=== PATIENT | female | born 1935 | race Caucasian/White ===

== ENCOUNTER 2016-07-01 18:27 | Emergency (ER) | payer MEDICARE, OTHER ==
--- NOTE | 2016-07-01 19:13 | ED ---
SOB HPI - General Chief Complaint: Shortness of Breath Stated Complaint: chest pain Time Seen by Provider: 07/01/16 19:00 Source: patient, EMS, RN notes reviewed Mode of arrival: EMS Limitations: no limitations - History of Present Illness Initial Comments: This is a 80-year-old female history of psoriasis who is on methotrexate who states she's been having episodes of dyspnea over the last 3 weeks or so. It was believed to be secondary to the methotrexate. She did see Dr. Mi in addition to her own family doctor. She was placed on Advair which she does not believe helped very much she denies any fevers chills or sweats any cough or phlegm production she does get somewhat dyspneic with exertion or talking. She had an episode of chest pain earlier today that went away after she vomited. She points her left chest costochondral/costal sternal margin. She states she' s had similar pains in the past perhaps slightly different location however. Currently she feels back to normal essentially. MD Complaint: shortness of breath - Related Data Home Medications Medication Instructions Recorded Confirmed Cholecalciferol [Vitamin D3] 2,000 unit PO DAILY 09/24/15 07/01/16 Simvastatin [Zocor] 40 mg PO HS 09/24/15 07/01/16 Aspirin EC [Ecotrin Low Dose] 81 mg PO DAILY 03/11/16 07/01/16 Levothyroxine Sodium [Synthroid] 100 mcg PO DAILY 03/11/16 07/01/16 Warfarin [Coumadin] 2.5 mg PO DIRECTED 07/01/16 07/01/16 Warfarin [Coumadin] 5 mg PO DIRECTED 07/01/16 07/01/16 Previous Rx's Medication Instructions Recorded Hydrochlorothiazide [Hydrodiuril] 12.5 mg PO DAILY #30 cap 03/11/16 Hydrochlorothiazide [Hydrodiuril] 25 mg PO DAILY #14 tab 07/01/16 Allergies Allergy/AdvReac Type Severity Reaction Status Date / Time Penicillins Allergy Unknown Verified 07/01/16 18:54 Sulfa (Sulfonamide Allergy Unknown Verified 07/01/16 18:54 Antibiotics) adhesive tape AdvReac Peals Skin Verified 07/01/16 18:54 Review of Systems ROS Statement: Those systems with pertinent positive or pertinent negative responses have been documented in the HPI. ROS Other: All systems not noted in ROS Statement are negative. Past Medical History Past Medical History: Atrial Fibrillation, GERD/Reflux, Hyperlipidemia, Hypertension, Thyroid Disorder History of Any Multi-Drug Resistant Organisms: None Reported Past Surgical History: Section Additional Past Surgical History / Comment(s): jaw and pelvis surgery from accident many years ago Past Anesthesia/Blood Transfusion Reactions: Postoperative Nausea & Vomiting ( PONV) Past Psychological History: No Psychological Hx Reported Smoking Status: Never smoker Past Alcohol Use History: None Reported Past Drug Use History: None Reported - Past Family History Mother Family Medical History: CVA/TIA Additional Family Medical History / Comment(s): bowel disorder Father Family Medical History: Diabetes Mellitus, Myocardial Infarction ([place]) General Exam - General Exam Comments Initial Comments: This is a well-developed well-nourished awake alert oriented 3 female Limitations: no limitations General appearance: alert, in no apparent distress Head exam: Present: atraumatic, normocephalic, normal inspection Eye exam: Present: normal appearance, PERRL, EOMI. Absent: scleral icterus, conjunctival injection, periorbital swelling ENT exam: Present: normal exam, mucous membranes moist Neck exam: Present: normal inspection. Absent: tenderness, meningismus, lymphadenopathy Respiratory exam: Present: normal lung sounds bilaterally. Absent: respiratory distress, wheezes, rales, rhonchi, stridor Cardiovascular Exam: Present: regular rate, normal rhythm, normal heart sounds. Absent: systolic murmur, diastolic murmur, rubs, gallop, clicks GI/Abdominal exam: Present: soft, normal bowel sounds. Absent: distended, tenderness, guarding, rebound, rigid Extremities exam: Present: normal inspection, full ROM, normal capillary refill. Absent: tenderness, pedal edema, joint swelling, calf tenderness Back exam: Present: normal inspection Neurological exam: Present: alert, oriented X3, CN II-XII intact Psychiatric exam: Present: normal affect, normal mood Skin exam: Present: warm, dry, intact, normal color. Absent: rash Course Vital Signs 07/01/16 07/01/16 18:31 20:46 Temperature 97.0 F L 98.1 F Pulse Rate 65 78 Respiratory 20 18 Rate Blood Pressure 178/74 158/72 O2 Sat by Pulse 100 97 Oximetry Medical Decision Making - Medical Decision Making I did a long discussion with the patient family regarding the findings patient was offered a choice of admission or be discharged with increasing her diuretic. She chose not to be admitted she will be discharged with increasing hydrochlorothiazide to 25 mg a day is a follow-up with her doctor in 2 days and return when necessary she is return if is any problems. - Lab Data Result diagrams: 07/01/16 18:40 07/01/16 18:40 Lab Results 07/01/16 07/01/16 07/01/16 Range/Units 18:40 18:40 18:40 WBC 10.4 (3.8-10.6) k/uL RBC 4.11 (3.80-5.40) m/uL Hgb 13.4 (11.4-16.0) gm/dL Hct 40.7 (34.0-46.0) % MCV 99.0 (80.0-100.0) fL MCH 32.7 (25.0-35.0) pg MCHC 33.1 (31.0-37.0) g/dL RDW 16.2 H (11.5-15.5) % Plt Count 234 (150-450) k/uL Neutrophils % 75 % Lymphocytes % 15 % Monocytes % 6 % Eosinophils % 1 % Basophils % 1 % Neutrophils # 7.8 H (1.3-7.7) k/uL Lymphocytes # 1.6 (1.0-4.8) k/uL Monocytes # 0.7 (0-1.0) k/uL Eosinophils # 0.1 (0-0.7) k/uL Basophils # 0.1 (0-0.2) k/uL Anisocytosis Slight Macrocytosis Slight PT (9.0-12.0) sec INR (<1.1) APTT (22.0-30.0) sec D-Dimer (<0.60) mg/L FEU Sodium 144 (137-145) mmol/L Potassium 4.2 (3.5-5.1) mmol/L Chloride 106 (98-107) mmol/L Carbon Dioxide 24 (22-30) mmol/L Anion Gap 14 mmol/L BUN 14 (7-17) mg/dL Creatinine 0.83 (0.52-1.04) mg/dL Est GFR (MDRD) Af Amer >60 (>60 ml/min/1.73 sqM) Est GFR (MDRD) Non-Af >60 (>60 ml/min/1.73 sqM) Glucose 87 (74-99) mg/dL Calcium 9.9 (8.4-10.2) mg/dL Magnesium 2.2 (1.6-2.3) mg/dL Total Bilirubin 0.7 (0.2-1.3) mg/dL AST 52 H (14-36) U/L ALT 38 (9-52) U/L Alkaline Phosphatase 87 (38-126) U/L Total Creatine Kinase 43 (30-135) U/L CK-MB (CK-2) 1.3 (0.0-2.4) ng/mL CK-MB (CK-2) Rel Index 3.0 Troponin I <0.012 (0.000-0.034) ng/mL NT-Pro-B Natriuret Pep pg/mL Total Protein 7.9 (6.3-8.2) g/dL Albumin 4.3 (3.5-5.0) g/dL 07/01/16 07/01/16 Range/Units 18:40 18:40 WBC (3.8-10.6) k/uL RBC (3.80-5.40) m/uL Hgb (11.4-16.0) gm/dL Hct (34.0-46.0) % MCV (80.0-100.0) fL MCH (25.0-35.0) pg MCHC (31.0-37.0) g/dL RDW (11.5-15.5) % Plt Count (150-450) k/uL Neutrophils % % Lymphocytes % % Monocytes % % Eosinophils % % Basophils % % Neutrophils # (1.3-7.7) k/uL Lymphocytes # (1.0-4.8) k/uL Monocytes # (0-1.0) k/uL Eosinophils # (0-0.7) k/uL Basophils # (0-0.2) k/uL Anisocytosis Macrocytosis PT 21.0 H (9.0-12.0) sec INR 2.2 (<1.1) APTT 27.5 (22.0-30.0) sec D-Dimer 0.29 (<0.60) mg/L FEU Sodium (137-145) mmol/L Potassium (3.5-5.1) mmol/L Chloride (98-107) mmol/L Carbon Dioxide (22-30) mmol/L Anion Gap mmol/L BUN (7-17) mg/dL Creatinine (0.52-1.04) mg/dL Est GFR (MDRD) Af Amer (>60 ml/min/1.73 sqM) Est GFR (MDRD) Non-Af (>60 ml/min/1.73 sqM) Glucose (74-99) mg/dL Calcium (8.4-10.2) mg/dL Magnesium (1.6-2.3) mg/dL Total Bilirubin (0.2-1.3) mg/dL AST (14-36) U/L ALT (9-52) U/L Alkaline Phosphatase (38-126) U/L Total Creatine Kinase (30-135) U/L CK-MB (CK-2) (0.0-2.4) ng/mL CK-MB (CK-2) Rel Index Troponin I (0.000-0.034) ng/mL NT-Pro-B Natriuret Pep 2240 pg/mL Total Protein (6.3-8.2) g/dL Albumin (3.5-5.0) g/dL - EKG Data -: EKG Interpreted by Me EKG shows normal: sinus rhythm (Rate was 64 LA interval 172 QRS duration 96 daily since QTC 458/472 evidence of incomplete right bundle-branch block no acute ST-T wave elevation or depressions) - Radiology Data Radiology results: report reviewed (I did review the imaging and report no acute findings.), image reviewed Disposition Clinical Impression: Congestive heart failure Disposition: HOME SELF-CARE Condition: Good Instructions: Heart Failure (ED) Prescriptions: Hydrochlorothiazide [Hydrodiuril] 25 mg PO DAILY #14 tab
[2016-07-01 19:29] LABS: Anisocytosis Slight; Basophils # (A) 0.1 k/uL (0-0.2); Basophils % (A) 1 %; CH 32.8; CHCM 33.4; Eosinophils # (A) 0.1 k/uL (0-0.7); Eosinophils % (A) 1 %; HCT 40.7 % (34.0-46.0); HDW 2.75; HGB 13.4 gm/dL (11.4-16.0); Luc # (Auto) 0.17; Luc % (Auto) 2; Lymphocytes # (A) 1.6 k/uL (1.0-4.8); Lymphocytes % (A) 15 %; MCH 32.7 pg (25.0-35.0); MCHC 33.1 g/dL (31.0-37.0); Macrocytosis Slight; Mean Platelet Volume 8.1; Monocytes # (A) 0.7 k/uL (0-1.0); Monocytes % (A) 6 %; Neutrophils # (A) 7.8 k/uL (1.3-7.7); Neutrophils % (A) 75 %; RBC 4.11 m/uL (3.80-5.40); RDW 16.2 % (11.5-15.5); WBC 10.4 k/uL (3.8-10.6); WBC (Perox) 10.57
[2016-07-01 19:44] LABS: ALT 38 U/L (9-52); AST 52 U/L (14-36); Alkaline Phosphatase 87 U/L (38-126); Anion Gap 14 mmol/L; Blood Urea Nitrogen 14 mg/dL (7-17); Calcium 9.9 mg/dL (8.4-10.2); Carbon Dioxide 24 mmol/L (22-30); Chloride 106 mmol/L (98-107); Glucose 87 mg/dL (74-99); Magnesium 2.2 mg/dL (1.6-2.3); Non-African American GFR(MDRD) >60 (>60 ml/min/1.73 sqM); Potassium 4.2 mmol/L (3.5-5.1); Sodium 144 mmol/L (137-145); Total Bilirubin 0.7 mg/dL (0.2-1.3); Total Protein 7.9 g/dL (6.3-8.2)
[2016-07-01 19:52] LABS: Creatine Kinase 43 U/L (30-135)
[2016-07-01 20:02] LABS: INR 2.2 (<1.1); Partial Thromboplastin Time 27.5 sec (22.0-30.0)
[2016-07-01 20:04] LABS: Creatine Kinase MB 1.3 ng/mL (0.0-2.4); Troponin I <0.012 ng/mL (0.000-0.034)
[2016-07-01 20:47] VITALS: PULSE 78; RESP 18; TEMP 98.1
--- NOTE | 2016-07-01 20:49 | XR ---
EXAMINATION TYPE: XR chest 2V DATE OF EXAM: 07/01/2016 8:26 PM COMPARISON: 05/10/2016 HISTORY: Chest pain TECHNIQUE: Frontal and lateral views of the chest are obtained. FINDINGS: Heart and mediastinum are normal. Lungs are clear. Diaphragm is normal. There are chest le ads. Bony thorax is intact. IMPRESSION: Normal chest. No change.
[2016-07-01 21:22] VITALS: BP 178/78
== END 2016-07-01 21:20 | disposition home or self-care (01) ==
LOC: EC 18:27
DX: I50.9 Heart failure, unspecified (principal); L40.9 Psoriasis, unspecified; E07.9 Disorder of thyroid, unspecified; I48.91 Unspecified atrial fibrillation; E78.5 Hyperlipidemia, unspecified; Z79.82 Long term (current) use of aspirin; Z79.899 Other long term (current) drug therapy; Z79.01 Long term (current) use of anticoagulants; Z88.2 Allergy status to sulfonamides; Z88.0 Allergy status to penicillin
CPT/HCPCS: 36415; 71020; 80053; 82550; 82553; 83735; 83880; 84484; 85025; 85379; 85610; 85730; 93005; 99285

== ENCOUNTER 2016-07-12 04:11 | Inpatient (IN) | payer MEDICARE, OTHER ==
[2016-07-12] MEDS ORDERED: predniSONE 20 MG TAB PO STA (04:33)
[2016-07-12] MEDS ORDERED: IPRATROPIUM-ALBUTEROL 3 ML NEB INHALATION STA (04:33)
[2016-07-12 04:43] LABS: Basophils # (A) 0.1 k/uL (0-0.2); Basophils % (A) 1 %; CH 33.6; CHCM 35.7; Eosinophils # (A) 0.2 k/uL (0-0.7); Eosinophils % (A) 3 %; HCT 41.2 % (34.0-46.0); HDW 2.65; HGB 14.1 gm/dL (11.4-16.0); Luc % (Auto) 2; Lymphocytes # (A) 2.7 k/uL (1.0-4.8); Lymphocytes % (A) 31 %; MCH 32.5 pg (25.0-35.0); MCHC 34.4 g/dL (31.0-37.0); MCV 94.6 fL (80.0-100.0); Mean Platelet Volume 8.4; Monocytes # (A) 0.6 k/uL (0-1.0); Monocytes % (A) 7 %; Neutrophils # (A) 4.9 k/uL (1.3-7.7); Neutrophils % (A) 56 %; RBC 4.35 m/uL (3.80-5.40); RDW 15.3 % (11.5-15.5); WBC 8.7 k/uL (3.8-10.6); WBC (Perox) 8.82
[2016-07-12 04:56] LABS: Calcium 10.3 mg/dL (8.4-10.2); Magnesium 1.9 mg/dL (1.6-2.3); Potassium 3.2 mmol/L (3.5-5.1); Total Protein 7.8 g/dL (6.3-8.2)
[2016-07-12 04:58] LABS: INR 2.3 (<1.1); Partial Thromboplastin Time 28.2 sec (22.0-30.0); Prothrombin Time 22.5 sec (9.0-12.0)
--- NOTE | 2016-07-12 05:00 | XR ---
EXAMINATION TYPE: XR chest 2V DATE OF EXAM: 07/12/2016 4:45 AM COMPARISON: 07/01/2016 HISTORY: Short of breath TECHNIQUE: Frontal and lateral views of the chest are obtained. FINDINGS: Heart and mediastinum are normal. Lungs are clear. Diaphragm is normal. There are chest le ads. Bony thorax is intact. IMPRESSION: No active cardiopulmonary disease. Normal heart. No change.
[2016-07-12] MEDS ORDERED: POTASSIUM CHLORIDE ER 20 MEQ TAB.ER PO STA (05:43)
--- NOTE | 2016-07-12 06:26 | ED ---
SOB HPI - General Chief Complaint: Shortness of Breath Stated Complaint: BAILEY Time Seen by Provider: 07/12/16 04:20 Source: patient, EMS, RN notes reviewed Mode of arrival: EMS - History of Present Illness Initial Comments: This patient is a 81-year-old woman who presents with history of COPD and CHF, complaining of about 2 days of worsening dyspnea. The patient states she has been having a lot of anxiety and wonders if it could be related to this. She does report a nonproductive cough. Patient denies chest pain, palpitations, leg pain or swelling, change in urination, bloody or dark tarry stools. MD Complaint: shortness of breath Onset/Timin -: days(s) Severity: moderate Consistency: constant Improves With: nothing Worsens With: nothing Known History Of: COPD, congestive heart failure Associated Symptoms: denies other symptoms - Related Data Home Medications Medication Instructions Recorded Confirmed Cholecalciferol [Vitamin D3] 2,000 unit PO DAILY 09/24/15 07/12/16 Aspirin EC [Ecotrin Low Dose] 81 mg PO DAILY 03/11/16 07/12/16 Levothyroxine Sodium [Synthroid] 100 mcg PO DAILY 03/11/16 07/12/16 Spironolactone [Aldactone] 25 mg PO DAILY 07/12/16 07/12/16 Warfarin Sodium [Coumadin] 2.5 mg PO SUTUTH 07/12/16 07/12/16 Warfarin [Coumadin] 5 mg PO MOWEFRSA 07/12/16 07/12/16 Previous Rx's Medication Instructions Recorded Hydrochlorothiazide [Hydrodiuril] 25 mg PO DAILY #14 tab 07/01/16 Azithromycin [Zithromax Z-pack] 0 mg PO DIRECTED #6 tab 07/12/16 Metoprolol Tartrate [Lopressor] 25 mg PO BID #30 tablet 07/12/16 methylPREDNISolone Dose Pack 4 mg PO DIRECTED #21 package 07/12/16 [Medrol Dose Pack] Allergies Allergy/AdvReac Type Severity Reaction Status Date / Time Penicillins Allergy Unknown Verified 07/12/16 07:56 Sulfa (Sulfonamide Allergy Unknown Verified 07/12/16 07:56 Antibiotics) adhesive tape AdvReac Peals Skin Verified 07/12/16 07:56 Review of Systems ROS Statement: Those systems with pertinent positive or pertinent negative responses have been documented in the HPI. ROS Other: All systems not noted in ROS Statement are negative. Constitutional: Denies: fever, chills, weakness Respiratory: Reports: cough, dyspnea, wheezes. Denies: hemoptysis Cardiovascular: Denies: chest pain, palpitations, dyspnea on exertion, orthopnea , edema, syncope Gastrointestinal: Denies: abdominal pain, nausea, vomiting, diarrhea Musculoskeletal: Denies: back pain Skin: Denies: rash Neurological: Denies: headache, weakness, numbness Past Medical History Past Medical History: Atrial Fibrillation, GERD/Reflux, Hyperlipidemia, Hypertension, Thyroid Disorder History of Any Multi-Drug Resistant Organisms: None Reported Past Surgical History: Section Additional Past Surgical History / Comment(s): jaw and pelvis surgery from accident many years ago Past Anesthesia/Blood Transfusion Reactions: Postoperative Nausea & Vomiting ( PONV) Past Psychological History: No Psychological Hx Reported Smoking Status: Never smoker Past Alcohol Use History: None Reported Past Drug Use History: None Reported - Past Family History Mother Family Medical History: CVA/TIA Additional Family Medical History / Comment(s): bowel disorder Father Family Medical History: Diabetes Mellitus, Myocardial Infarction ([place]) General Exam General appearance: alert, anxious, in distress (Patient appears in mild respiratory distress with mild tachypnea) Head exam: Present: atraumatic, normocephalic Eye exam: Present: normal appearance. Absent: scleral icterus, conjunctival injection ENT exam: Present: mucous membranes dry Neck exam: Present: normal inspection Respiratory exam: Present: respiratory distress (Mild tachypnea), wheezes, decreased breath sounds. Absent: rales, rhonchi, stridor, accessory muscle use Cardiovascular Exam: Present: normal rhythm, tachycardia (Rate approximately 108 bpm), normal heart sounds. Absent: systolic murmur, diastolic murmur, rubs , gallop GI/Abdominal exam: Present: soft. Absent: distended, tenderness, guarding, rebound, mass Extremities exam: Present: normal inspection, normal capillary refill. Absent: pedal edema, calf tenderness Back exam: Present: normal inspection. Absent: CVA tenderness (R), CVA tenderness (L) Neurological exam: Present: alert Psychiatric exam: Present: anxious Skin exam: Present: warm, dry, intact, normal color. Absent: rash, cyanosis, diaphoretic, erythema, petechiae, pallor, mottled Course Vital Signs 07/12/16 07/12/16 07/12/16 04:27 05:01 05:06 Temperature 97.1 F L Pulse Rate 110 H 94 105 H Respiratory 18 Rate Blood Pressure 169/79 O2 Sat by Pulse 97 Oximetry 07/12/16 07/12/16 07/12/16 08:19 09:00 10:00 Temperature 97 F L Pulse Rate 102 H 92 90 Respiratory 20 18 18 Rate Blood Pressure 175/63 167/65 175/63 O2 Sat by Pulse 98 95 95 Oximetry 07/12/16 12:58 Temperature 97.6 F Pulse Rate 105 H Respiratory 16 Rate Blood Pressure 151/76 O2 Sat by Pulse 98 Oximetry Medical Decision Making - Medical Decision Making Patient 81-year-old woman in with dyspnea, she does have some exacerbation of her COPD. She was not having adequate relief with medication and therefore case discussed with her physician Dr. Emile Bansal who agreed to admit her with consultation to Dr. Mi. She was scheduled to have outpatient CT and this was ordered here and she'll be admitted. - Lab Data Result diagrams: 07/12/16 04:30 07/12/16 04:30 Lab Results 07/12/16 07/12/16 07/12/16 Range/Units 04:30 04:30 04:30 WBC 8.7 (3.8-10.6) k/uL RBC 4.35 (3.80-5.40) m/uL Hgb 14.1 (11.4-16.0) gm/dL Hct 41.2 (34.0-46.0) % MCV 94.6 (80.0-100.0) fL MCH 32.5 (25.0-35.0) pg MCHC 34.4 (31.0-37.0) g/dL RDW 15.3 (11.5-15.5) % Plt Count 240 (150-450) k/uL Neutrophils % 56 % Lymphocytes % 31 % Monocytes % 7 % Eosinophils % 3 % Basophils % 1 % Neutrophils # 4.9 (1.3-7.7) k/uL Lymphocytes # 2.7 (1.0-4.8) k/uL Monocytes # 0.6 (0-1.0) k/uL Eosinophils # 0.2 (0-0.7) k/uL Basophils # 0.1 (0-0.2) k/uL PT 22.5 H (9.0-12.0) sec INR 2.3 (<1.1) APTT 28.2 (22.0-30.0) sec D-Dimer 0.27 (<0.60) mg/L FEU Sodium 139 (137-145) mmol/L Potassium 3.2 L (3.5-5.1) mmol/L Chloride 104 (98-107) mmol/L Carbon Dioxide 18 L (22-30) mmol/L Anion Gap 17 mmol/L BUN 28 H (7-17) mg/dL Creatinine 1.30 H (0.52-1.04) mg/dL Est GFR (MDRD) Af Amer 48 (>60 ml/min/1.73 sqM) Est GFR (MDRD) Non-Af 40 (>60 ml/min/1.73 sqM) Glucose 107 H (74-99) mg/dL Calcium 10.3 H (8.4-10.2) mg/dL Magnesium 1.9 (1.6-2.3) mg/dL Total Bilirubin 1.0 (0.2-1.3) mg/dL AST 50 H (14-36) U/L ALT 36 (9-52) U/L Alkaline Phosphatase 86 (38-126) U/L Troponin I (0.000-0.034) ng/mL NT-Pro-B Natriuret Pep pg/mL Total Protein 7.8 (6.3-8.2) g/dL Albumin 4.2 (3.5-5.0) g/dL 07/12/16 07/12/16 Range/Units 04:30 04:30 WBC (3.8-10.6) k/uL RBC (3.80-5.40) m/uL Hgb (11.4-16.0) gm/dL Hct (34.0-46.0) % MCV (80.0-100.0) fL MCH (25.0-35.0) pg MCHC (31.0-37.0) g/dL RDW (11.5-15.5) % Plt Count (150-450) k/uL Neutrophils % % Lymphocytes % % Monocytes % % Eosinophils % % Basophils % % Neutrophils # (1.3-7.7) k/uL Lymphocytes # (1.0-4.8) k/uL Monocytes # (0-1.0) k/uL Eosinophils # (0-0.7) k/uL Basophils # (0-0.2) k/uL PT (9.0-12.0) sec INR (<1.1) APTT (22.0-30.0) sec D-Dimer (<0.60) mg/L FEU Sodium (137-145) mmol/L Potassium (3.5-5.1) mmol/L Chloride (98-107) mmol/L Carbon Dioxide (22-30) mmol/L Anion Gap mmol/L BUN (7-17) mg/dL Creatinine (0.52-1.04) mg/dL Est GFR (MDRD) Af Amer (>60 ml/min/1.73 sqM) Est GFR (MDRD) Non-Af (>60 ml/min/1.73 sqM) Glucose (74-99) mg/dL Calcium (8.4-10.2) mg/dL Magnesium (1.6-2.3) mg/dL Total Bilirubin (0.2-1.3) mg/dL AST (14-36) U/L ALT (9-52) U/L Alkaline Phosphatase (38-126) U/L Troponin I <0.012 (0.000-0.034) ng/mL NT-Pro-B Natriuret Pep 545 pg/mL Total Protein (6.3-8.2) g/dL Albumin (3.5-5.0) g/dL - EKG Data -: EKG Interpreted by [facility] EKG shows normal: sinus rhythm, axis (Normal), intervals (Prolonged QT), QRS complexes (Incomplete right bundle branch block) Interpretation: nonspecific ST-T wave changes, other (EKG shows sinus rhythm with premature supraventricular complexes. Rate is approximately 80 bpm. There is prolonged QT interval.) Disposition Clinical Impression: Acute exacerbation of chronic obstructive airways disease Disposition: ADMITTED IP TO THIS HOSP
--- NOTE | 2016-07-12 06:57 | CT ---
EXAMINATION TYPE: CT chest wo con DATE OF EXAM: 07/12/2016 6:43 AM COMPARISON: NONE HISTORY: SOB CT DLP: 484 mGycm Automated exposure control for dose reduction was used. FINDINGS: The lungs are clear of consolidation. There is no evidence of a pulmonary mass. There is no pleural e ffusion. Heart size is normal. There are no hilar masses. There is minimal atheromatous change in the thoracic aorta. There is no evidence of aortic aneurysm. There is no mediastinal adenopathy. The bon y thorax is intact. There is a mild thoracic levoscoliosis. IMPRESSION: NO ACTIVE CARDIOPULMONARY DISEASE. NO EVIDENCE OF BRONCHOPNEUMONIA.
[2016-07-12] MEDS ORDERED: predniSONE 20 MG TAB PO SCH (09:00)
[2016-07-12] MEDS ORDERED: HEPARIN SODIUM,PORCINE 5,000 UNIT/ML 1 ML VIAL SQ SCH (09:00)
[2016-07-12] MEDS ORDERED: IPRATROPIUM-ALBUTEROL 3 ML NEB INHALATION SCH (12:00)
--- NOTE | 2016-07-12 12:25 | P.HPIM ---
History of Present Illness 81-year-old female states that at 3:00 this morning she developed some shortness of breath. She called EMS for transport to the emergency room. Patient was evaluated and admitted. States she is some improvement. Patient is a patient of Dr. Mi awaiting his consultation Review of Systems Cardiovascular: Reports dyspnea on exertion Integumentary: Reports rash Past Medical History Past Medical History: Atrial Fibrillation, GERD/Reflux, Hyperlipidemia, Hypertension, Thyroid Disorder History of Any Multi-Drug Resistant Organisms: None Reported Past Surgical History: Section Additional Past Surgical History / Comment(s): jaw and pelvis surgery from accident many years ago Past Anesthesia/Blood Transfusion Reactions: Postoperative Nausea & Vomiting ( PONV) Past Psychological History: No Psychological Hx Reported Smoking Status: Never smoker Past Alcohol Use History: None Reported Past Drug Use History: None Reported - Past Family History Mother Family Medical History: CVA/TIA Additional Family Medical History / Comment(s): bowel disorder Father Family Medical History: Diabetes Mellitus, Myocardial Infarction ([place]) Medications and Allergies Home Medications Medication Instructions Recorded Confirmed Type Cholecalciferol [Vitamin D3] 2,000 unit PO DAILY 09/24/15 07/12/16 History Aspirin EC [Ecotrin Low Dose] 81 mg PO DAILY 03/11/16 07/12/16 History Levothyroxine Sodium [Synthroid] 100 mcg PO DAILY 03/11/16 07/12/16 History Spironolactone [Aldactone] 25 mg PO DAILY 07/12/16 07/12/16 History Warfarin Sodium [Coumadin] 2.5 mg PO SUTUTH 07/12/16 07/12/16 History Warfarin [Coumadin] 5 mg PO MOWEFRSA 07/12/16 07/12/16 History Allergies Allergy/AdvReac Type Severity Reaction Status Date / Time Penicillins Allergy Unknown Verified 07/12/16 07:56 Sulfa (Sulfonamide Allergy Unknown Verified 07/12/16 07:56 Antibiotics) adhesive tape AdvReac Peals Skin Verified 07/12/16 07:56 Physical Exam Vitals: Vital Signs Temp Pulse Resp BP Pulse Ox 07/12/16 10:00 90 18 175/63 95 07/12/16 09:00 92 18 167/65 95 07/12/16 08:19 97 F L 102 H 20 175/63 98 - Constitutional General appearance: average body habitus, mild distress - EENT Eyes: PERRLA Ears: bilateral: normal - Neck Neck: normal ROM - Respiratory Respiratory: bilateral: diminished - Cardiovascular Rhythm: irregularly irregular - Gastrointestinal General gastrointestinal: soft - Integumentary Psoriasis rash generalized - Neurologic Neurologic: CNII-XII intact - Musculoskeletal Musculoskeletal: generalized weakness - Psychiatric Psychiatric: appropriate affect, intact judgment & insight Results CBC & Chem 7: 07/12/16 04:30 07/12/16 04:30 Chest x-ray: report reviewed CT scan - chest: report reviewed Assessment and Plan Plan: Assessment COPD exacerbation Hypertension Atrial fibrillation GERD Hyperlipidemia Hypothyroidism Hypokalemia psoriasis Plan Consultation with Dr. Mi regarding COPD
[2016-07-12 13:00] VITALS: BP 151/76; PULSE 105; RESP 16; TEMP 97.6
--- NOTE | 2016-07-12 13:12 | P.DS ---
Providers Date of admission: 07/12/16 06:46 Attending physician: Emile Gregory Consults: 81-year-old female states she developed some shortness of breath at 3 AM at home called EMS and was transferred to the emergency room. Was evaluated and settled for admission. Patient was evaluated by Dr. Keys. He stated that she appeared stable and could be discharge home. He wrote a prescription for zpak Medrol Dosepak and l Lopressor 25 mg have to b.i.d. Patient with family patient wishing to be discharged and family agreement Assessment COPD exacerbation hypertension atrial fibrillation GERD hyperlipidemia hypothyroidism psoriasis Plan discharge home Primary care physician: Emile Gregory Plan - Discharge Summary New Discharge Prescriptions: Azithromycin [Zithromax Z-pack] 0 mg PO DIRECTED #6 tab Metoprolol Tartrate [Lopressor] 25 mg PO BID #30 tablet methylPREDNISolone Dose Pack [Medrol Dose Pack] 4 mg PO DIRECTED #21 package Discharge Medication List Cholecalciferol [Vitamin D3] 2,000 unit PO DAILY 09/24/15 [History] Aspirin EC [Ecotrin Low Dose] 81 mg PO DAILY 03/11/16 [History] Levothyroxine Sodium [Synthroid] 100 mcg PO DAILY 03/11/16 [History] Hydrochlorothiazide [Hydrodiuril] 25 mg PO DAILY #14 tab 07/01/16 [Rx] Azithromycin [Zithromax Z-pack] 0 mg PO DIRECTED #6 tab 07/12/16 [Rx] Metoprolol Tartrate [Lopressor] 25 mg PO BID #30 tablet 07/12/16 [Rx] Spironolactone [Aldactone] 25 mg PO DAILY 07/12/16 [History] Warfarin Sodium [Coumadin] 2.5 mg PO SUTUTH 07/12/16 [History] Warfarin [Coumadin] 5 mg PO MOWEFRSA 07/12/16 [History] methylPREDNISolone Dose Pack [Medrol Dose Pack] 4 mg PO DIRECTED #21 package 07/12/16 [Rx] Follow up Appointment(s)/Referral(s): Emile Gregory MD [Primary Care Provider] - 1 Week Sheila Mi MD [STAFF PHYSICIAN] - 07/18/16 Patient Instructions/Handouts: COPD (Chronic Obstructive Pulmonary Disease) (ED )
--- NOTE | 2016-07-12 13:34 | P.CNPUL ---
History of Present Illness Consult date: 07/12/16 Requesting physician: Emile Gregory Reason for consult: dyspnea Chief complaint: Shortness of breath, anxiety History of present illness: This is a very pleasant 81-year-old female patient who follows with Dr. Emile Gregory is her primary care physician. She has a history of atrial fibrillation, gastroesophageal reflux disease, hyperlipidemia, hypertension, hypothyroidism. She is a lifelong nonsmoker and no previous pulmonary disease. The patient had been experiencing increasing shortness of breath and had been treated on methotrexate in the past. She was referred to Dr. Mi approximately a week ago as a new patient. Based on her worsening shortness of breath there is some concern regarding possible methotrexate lung and she was scheduled to have a computed tomography scan later this week. Yesterday however she developed increasing shortness of breath. No cough or congestion. No fever chills or night sweats. She felt somewhat anxious and came to the emergency room. She is seen today in consultation in the emergency room. Currently she is awake and alert in no acute distress. Her family is at the bedside. She denies any shortness of breath today no cough or congestion no fever chills or night sweats. She is in atrial fibrillation with varying ventricular response. Her chest x-ray revealed no acute pulmonary process. Her CT of the chest did not show any evidence of fibrosis or any other abnormalities. She is maintaining O2 saturations in the upper 90s on room air. No fever. No leukocytosis. She is anxious to go home. She states she feels back to her baseline. Review of Systems 14 point review of system was conducted. All negative other than as mentioned in HPI. Past Medical History Past Medical History: Atrial Fibrillation, GERD/Reflux, Hyperlipidemia, Hypertension, Thyroid Disorder History of Any Multi-Drug Resistant Organisms: None Reported Past Surgical History: Section Additional Past Surgical History / Comment(s): jaw and pelvis surgery from accident many years ago Past Anesthesia/Blood Transfusion Reactions: Postoperative Nausea & Vomiting ( PONV) Past Psychological History: No Psychological Hx Reported Smoking Status: Never smoker Past Alcohol Use History: None Reported Past Drug Use History: None Reported - Past Family History Mother Family Medical History: CVA/TIA Additional Family Medical History / Comment(s): bowel disorder Father Family Medical History: Diabetes Mellitus, Myocardial Infarction ([place]) Medications and Allergies Home Medications Medication Instructions Recorded Confirmed Type Cholecalciferol [Vitamin D3] 2,000 unit PO DAILY 09/24/15 07/12/16 History Aspirin EC [Ecotrin Low Dose] 81 mg PO DAILY 03/11/16 07/12/16 History Levothyroxine Sodium [Synthroid] 100 mcg PO DAILY 03/11/16 07/12/16 History Spironolactone [Aldactone] 25 mg PO DAILY 07/12/16 07/12/16 History Warfarin Sodium [Coumadin] 2.5 mg PO SUTUTH 07/12/16 07/12/16 History Warfarin [Coumadin] 5 mg PO MOWEFRSA 07/12/16 07/12/16 History Allergies Allergy/AdvReac Type Severity Reaction Status Date / Time Penicillins Allergy Unknown Verified 07/12/16 07:56 Sulfa (Sulfonamide Allergy Unknown Verified 07/12/16 07:56 Antibiotics) adhesive tape AdvReac Peals Skin Verified 07/12/16 07:56 Physical Exam Vitals: Vital Signs Temp Pulse Resp BP Pulse Ox 07/12/16 12:58 97.6 F 105 H 16 151/76 98 07/12/16 10:00 90 18 175/63 95 07/12/16 09:00 92 18 167/65 95 07/12/16 08:19 97 F L 102 H 20 175/63 98 GENERAL EXAM: Alert, active, comfortable in no apparent distress. HEAD: Normocephalic. EYES: Normal reaction of pupils, equal size. NOSE: Clear with pink turbinates. THROAT: No erythema or exudates. NECK: No masses, no JVD. CHEST: No chest wall deformity. LUNGS: Equal air entry with no crackles, wheeze, rhonchi or dullness. CVS: S1 and S2 normal with no audible mumurs, regular rhythm. ABDOMEN: No hepatosplenomegaly, normal bowel sounds, no guarding or rigidity. SPINE: No scoliosis or deformity SKIN: No rashes CENTRAL NERVOUS SYSTEM: No focal deficits, tone is normal in all 4 extremities. Extremities: There is no peripheral edema. No clubbing, no cyanosis. Peripheral pulses are intact. Results - Laboratory Findings CBC and BMP: 07/12/16 04:30 07/12/16 04:30 PT/INR, D-dimer PT 22.5 sec (9.0-12.0) H 07/12/16 04:30 INR 2.3 (<1.1) 07/12/16 04:30 D-Dimer 0.27 mg/L FEU (<0.60) 07/12/16 04:30 - Diagnostic Findings Chest x-ray: image reviewed CT scan - chest: image reviewed Assessment and Plan Plan: Impression: #1 Mild acute exacerbation of chronic obstructive pulmonary disease. #2 Atrial fibrillation with varying ventricular response. Anticoagulated with warfarin. #3 Gastroesophageal reflux disease. #4 Hyperlipidemia. #5 Hypertension. #6 Hypothyroidism. Plan: The patient was seen and evaluated by Dr. Mi. Her chest x-ray and CAT scans were reviewed. There is no evidence of any underlying fibrotic changes or ILD secondary to concerns regarding methotrexate use and increasing shortness of breath. She is cleared for discharge from the pulmonary standpoint. She is given a Z-Johann and a Medrol Dosepak along with Lopressor 25 mg half a tablet daily. She'll keep her scheduled appointment with Dr. Mi next week. She and her daughter both verbalized understanding and are in agreement. They will call our office sooner with any recurrence of symptoms or any other questions or concerns.
[2016-07-12] MEDS ORDERED: WARFARIN 5 MG TAB PO SCH (18:00)
[2016-07-13] MEDS ORDERED: CHOLECALCIFEROL 1,000 UNIT TAB PO SCH (09:00)
[2016-07-13] MEDS ORDERED: SPIRONOLACTONE 25 MG TAB PO SCH (09:00)
[2016-07-13] MEDS ORDERED: NON-FORMULARY DRUG (Aspirin Ec 81 MG) PO SCH (09:00)
[2016-07-13] MEDS ORDERED: HYDROCHLOROTHIAZIDE 25 MG TAB PO SCH (09:00)
[2016-07-13] MEDS ORDERED: LEVOTHYROXINE 100 MCG TAB PO SCH (09:00)
[2016-07-13] MEDS ORDERED: WARFARIN 5 MG TAB PO SCH (18:00)
== END 2016-07-12 13:17 | disposition home or self-care (01) | DRG 192 ==
LOC: EC 04:11 → 5MS5E 06:46
PROVIDERS: ADMIT Family Medicine; ATTEND Family Medicine
DX: J44.1 Chronic obstructive pulmonary disease with (acute) exacerbation (principal); I48.91 Unspecified atrial fibrillation; I10 Essential (primary) hypertension; E03.9 Hypothyroidism, unspecified; E78.5 Hyperlipidemia, unspecified; E87.6 Hypokalemia; F41.9 Anxiety disorder, unspecified; K21.9 Gastro-esophageal reflux disease without esophagitis; L40.9 Psoriasis, unspecified; Z79.899 Other long term (current) drug therapy; Z79.01 Long term (current) use of anticoagulants; Z79.82 Long term (current) use of aspirin; Z88.0 Allergy status to penicillin; Z88.2 Allergy status to sulfonamides; Z82.49 Family history of ischemic heart disease and other diseases of the circulatory system
CPT/HCPCS: 36415; 71020; 71250; 80053; 83735; 83880; 84484; 85025; 85379; 85610; 85730; 93005; 94640; 96372; 99285

== ENCOUNTER → 2016-08-15 | Outpatient (CLI) | payer MEDICARE, OTHER ==
[2016-08-15 16:06] LABS: Anion Gap 14 mmol/L; Blood Urea Nitrogen 14 mg/dL (7-17); Carbon Dioxide 28 mmol/L (22-30); Chloride 100 mmol/L (98-107); Non-African American GFR(MDRD) 60 (>60 ml/min/1.73 sqM); Sodium 142 mmol/L (137-145)
[2016-08-15 16:07] LABS: CH 32.6; CHCM 33.2; HCT 39.6 % (34.0-46.0); HDW 2.92; HGB 12.7 gm/dL (11.4-16.0); MCH 31.7 pg (25.0-35.0); MCHC 32.1 g/dL (31.0-37.0); MCV 98.9 fL (80.0-100.0); Mean Platelet Volume 7.2; RDW 14.6 % (11.5-15.5); WBC 8.3 k/uL (3.8-10.6)
== END ==
LOC: LABPAT 15:22
PROVIDERS: ATTEND Internal Medicine Interventional Cardiology
DX: I48.1 Persistent atrial fibrillation (principal)
CPT/HCPCS: 36415; 80051; 82565; 84520; 85027

== ENCOUNTER 2016-08-17 06:20 | Day surgery (SDC) | payer MEDICARE, OTHER ==
[2016-08-15 12:18] VITALS: BMI 26.6
[2016-08-17] MEDS ORDERED: SODIUM CHLORIDE 0.9% 1,000 ML in EMPTY BAG 1 BAG IV ONE (06:28)
[2016-08-17] MEDS ORDERED: ASPIRIN 325 MG TAB PO STA (06:28)
[2016-08-17] MEDS ORDERED: ALPRAZolam 0.25 MG TAB PO PRN (06:28)
[2016-08-17] MEDS ORDERED: ALPRAZolam 0.5 MG TAB PO PRN (06:28)
[2016-08-17] MEDS ORDERED: ATORVASTATIN 80 MG TAB PO STA (06:28)
[2016-08-17] MEDS ORDERED: NITROGLYCERIN SL TABS 0.4 MG TAB SUBLINGUAL PRN (06:28)
[2016-08-17] MEDS ORDERED: MIDAZOLAM 2 MG/2 ML VIAL ONE (07:02)
[2016-08-17] MEDS ORDERED: fentaNYL (PF) 50 MCG/ML 2 ML AMP ONE (07:02)
[2016-08-17 07:06] VITALS: PULSE 71; RESP 20
[2016-08-17 07:17] LABS: INR 1.5 (<1.1); Prothrombin Time 14.5 sec (9.0-12.0)
[2016-08-17] MEDS: BENZOCAINE SPRAY 100 APPLIC/CAN MUCOUS MEM ONE ×2 (07:35→07:44)
[2016-08-17] MEDS ORDERED: fentaNYL (PF) 50 MCG/ML 2 ML AMP IV ONE (07:44)
[2016-08-17] MEDS: MIDAZOLAM 2 MG/2 ML VIAL IV ONE ×2 (07:44→07:59)
[2016-08-17] MEDS ORDERED: PROPOFOL 10 MG/ML 20 ML VIAL IV ONE (08:01)
[2016-08-17] MEDS ORDERED: LIDOCAINE 1% INJ 10MG/ML (20 ML MDV) ONE (08:01)
[2016-08-17] MEDS ORDERED: LIDOCAINE 2% INJ 20 MG/ML SQ ONE (08:57)
[2016-08-17] MEDS: VERAPAMIL SYRINGE (5 MG/10 ML) INTRAARTER ONE ×2 (08:58→09:14)
[2016-08-17] MEDS ORDERED: HEPARIN SODIUM 1,000 UNIT/ML VIAL IV ONE (09:00)
[2016-08-17] MEDS ORDERED: POTASSIUM CHLORIDE ER 20 MEQ TAB.ER PO STA (09:01)
[2016-08-17] MEDS ORDERED: IOHEXOL 350 MG/ML 100 ML BOTTLE INJ ONE (09:14)
[2016-08-17] MEDS ORDERED: RX INFO: IV CONTRAST WAS GIVEN 1 EACH MISC MISCELLANE PRN (09:17)
[2016-08-17] MEDS ORDERED: SODIUM CHLORIDE 0.9% 1,000 ML IV SCH (09:30)
[2016-08-17 15:17] VITALS: BP 125/70
--- NOTE | 2016-08-17 18:33 | CC ---
DATE OF SERVICE: 08/17/2016 PERFORMING PHYSICIAN: Kyle Oconnor solar energy engineer. PROCEDURE PERFORMED: 1. Selective right and left coronary angiogram. 2. Left heart catheterization. 3. Left ventriculography. INDICATION: This is a pleasant 81-year-old female patient who was experiencing exertional dyspnea. She has multiple risk factors for coronary artery disease. Approach: Right radial artery. COMPLICATIONS: None. Level of sedation: Moderate with a sedation length of an hour. PROCEDURE DESCRIPTION: After obtaining informed consent, the patient was brought to the cardiac laborer tin can. The right radial artery was cannulated using micropuncture technique, the micropuncture wire passed easily, then I placed a 6 [place] sheath in the right radial artery. Subsequently, I gave the patient 2 mg of ( ) and 3000 units of heparin IV. Then I did selective right and left coronary angiogram using JR4 and JL 3.5 catheters. Then I did left heart catheterization and LV gram and LV gram using 5 [place] pigtail catheter. The procedure was completed without any complication. SELECTIVE CORONARY ANGIOGRAM: 1. The right coronary artery is a large-caliber vessel, it is a dominant vessel, it is angiographically normal. 2. The left main is angiographically normal. It bifurcates into the left circumflex and left anterior descending artery. 3. The left circumflex is a small to medium caliber vessel and it is a nondominant vessel. The proximal left circumflex is normal and gives rise to the first OM branch, which appeared to be angiographically normal and the circ continues after that as a small to medium caliber vessel in the AV groove. 4. Left anterior descending artery: The very proximal LAD appeared to have an eccentric lesion, seems to be in the range of 50%. This is by the bifurcation of the first diagonal branch, which is a small caliber vessel, seems to be angiographically normally. The mid LAD is angiographically normally. The LAD distally is angiographically normal and in the mid to distal LAD bifurcates and gives the bifurcation of 2 small diagonal branches and they are angiographically normal. HEMODYNAMICS: The left ventricular end-diastolic pressure was 28 mmHg and there was mild gradient across the aortic valve. LV GRAM: The LV gram was performed in the MA projection and using a power injection. The left ventricular systolic function is about 65 to 70%. CONCLUSION: 1. Intermediate lesion involving the proximal left anterior descending artery appeared to be in the range of 50%. 2. Elevated left ventricular end-diastolic pressure. 3. Mild gradient across the aortic valve. POSTPROCEDURE MANAGEMENT: 1. As an outpatient, I will start the patient on diuretics. 2. Risk factor modification. 3. Aspirin and statin. 4. Follow up with the patient.
--- NOTE | 2016-08-17 18:47 | LTR ---
August 17, 2016 RE: Romario Nafisa Alon Dear Sheila Ms. 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 I would recommend only medical treatment at this point. Besides that, her left ventricular end-diastolic pressure was elevated at about 28 mmHg, and that could explain her shortness of breath. As an outpatient I am going to start her on some diuretics. I want to thank you for the opportunity to participate in her care. Please do not hesitate to call with any question or concern. Sincerely, LINDA AZAR MD
== END 2016-08-17 15:00 | disposition home or self-care (01) ==
LOC: CATHCVL 06:20
PROVIDERS: ATTEND Internal Medicine Interventional Cardiology
DX: I25.10 Atherosclerotic heart disease of native coronary artery without angina pectoris (principal); I10 Essential (primary) hypertension; I48.0 Paroxysmal atrial fibrillation; Z53.8 Procedure and treatment not carried out for other reasons; Z79.01 Long term (current) use of anticoagulants; E78.5 Hyperlipidemia, unspecified; R13.10 Dysphagia, unspecified; F33.2 Major depressive disorder, recurrent severe without psychotic features; Z79.82 Long term (current) use of aspirin; Z79.899 Other long term (current) drug therapy; Z88.0 Allergy status to penicillin; Z88.2 Allergy status to sulfonamides
CPT/HCPCS: 93458; 84132; 85610; 93312; 99152; 99153 ×5; C1894; J2001 ×2; J2250; Q9967; J3010; J1644; J2704

== ENCOUNTER → 2016-08-23 | Outpatient (CLI) | payer MEDICARE, OTHER ==
[2016-08-23 15:03] LABS: Anion Gap 13 mmol/L; Blood Urea Nitrogen 12 mg/dL (7-17); Calcium 10.1 mg/dL (8.4-10.2); Carbon Dioxide 31 mmol/L (22-30); Chloride 98 mmol/L (98-107); Glucose 90 mg/dL (74-99); Non-African American GFR(MDRD) >60 (>60 ml/min/1.73 sqM); Potassium 3.6 mmol/L (3.5-5.1); Sodium 142 mmol/L (137-145)
== END | disposition home or self-care (01) ==
LOC: LABWHC1 14:18
PROVIDERS: ATTEND Internal Medicine Interventional Cardiology
DX: I10 Essential (primary) hypertension (principal)
CPT/HCPCS: 36415; 80048

== ENCOUNTER → 2016-10-19 | Outpatient (CLI) | payer MEDICARE, OTHER ==
[2016-10-19 13:31] LABS: Basophils # (A) 0.1 k/uL (0-0.2); Basophils % (A) 1 %; CH 32.5; CHCM 33.7; Eosinophils # (A) 0.2 k/uL (0-0.7); Eosinophils % (A) 2 %; HCT 39.6 % (34.0-46.0); HGB 13.2 gm/dL (11.4-16.0); Luc # (Auto) 0.07; Luc % (Auto) 1; Lymphocytes # (A) 1.5 k/uL (1.0-4.8); Lymphocytes % (A) 21 %; MCH 32.2 pg (25.0-35.0); MCHC 33.2 g/dL (31.0-37.0); MCV 96.9 fL (80.0-100.0); Mean Platelet Volume 7.5; Monocytes # (A) 0.2 k/uL (0-1.0); Monocytes % (A) 3 %; Neutrophils # (A) 5.1 k/uL (1.3-7.7); Neutrophils % (A) 72 %; RBC 4.08 m/uL (3.80-5.40); RDW 14.4 % (11.5-15.5); WBC 7.1 k/uL (3.8-10.6); WBC (Perox) 7.69
[2016-10-19 13:39] LABS: ALT 28 U/L (9-52); AST 57 U/L (14-36)
== END | disposition home or self-care (01) ==
LOC: LABWHC1 12:52
PROVIDERS: ATTEND Nurse Practitioner Family
DX: L40.0 Psoriasis vulgaris (principal)
CPT/HCPCS: 36415; 84450; 84460; 85025; 86480

== ENCOUNTER 2017-07-27 06:36 | Inpatient (IN) | payer MEDICARE, OTHER ==
[2017-07-27] MEDS ORDERED: LABETALOL 5 MG/ML VIAL MDV IVP STA (06:57)
--- NOTE | 2017-07-27 07:28 | ED ---
General Adult HPI - General Chief complaint: Fall Stated complaint: Fall Time Seen by Provider: 07/27/17 07:21 Source: patient, RN notes reviewed Mode of arrival: EMS Limitations: no limitations - History of Present Illness Initial comments: Patient is a pleasant 82-year-old female presenting to the emergency department following a fall. Incident occurred this morning. Patient got up to use the bathroom. Patient did not check the lites and tripped and fell. Patient did hit the left part of her head. No loss of consciousness. No syncope. No neck pain. No chest pain or dyspnea. No abdominal pain. Patient does take anticoagulation for atrial fibrillation. - Related Data Home Medications Medication Instructions Recorded Confirmed Aspirin EC [Ecotrin Low Dose] 81 mg PO DAILY 03/11/16 07/27/17 Levothyroxine Sodium [Synthroid] 100 mcg PO DAILY 03/11/16 07/27/17 Nystatin 100,000 Unit/gm Powd 1 applic TOPICAL DAILY 03/25/17 07/27/17 [Mycostatin Powder] Citalopram Hydrobromide [CeleXA] 20 mg PO DAILY 07/27/17 07/27/17 Simvastatin [Zocor] 20 mg PO HS 07/27/17 07/27/17 Warfarin [Coumadin] 2.5 mg PO FR 07/27/17 07/27/17 Warfarin [Coumadin] 5 mg PO SUMOTUWETHSA 07/27/17 07/27/17 Previous Rx's Medication Instructions Recorded Furosemide [Lasix] 40 mg PO DAILY 30 Days #30 tab 03/27/17 Metoprolol Tartrate [Lopressor] 25 mg PO BID #60 tab 03/27/17 Allergies Allergy/AdvReac Type Severity Reaction Status Date / Time Penicillins Allergy Rash/Hives Verified 07/27/17 09:23 Sulfa (Sulfonamide Allergy Unknown Verified 07/27/17 09:23 Antibiotics) Childhood adhesive tape AdvReac PEELS SKIN Verified 07/27/17 09:23 Review of Systems ROS Statement: Those systems with pertinent positive or pertinent negative responses have been documented in the HPI. ROS Other: All systems not noted in ROS Statement are negative. Constitutional: Denies: fever Eyes: Denies: eye pain ENT: Denies: ear pain Respiratory: Denies: cough Cardiovascular: Denies: chest pain Endocrine: Denies: fatigue Gastrointestinal: Denies: abdominal pain Genitourinary: Denies: dysuria Musculoskeletal: Denies: back pain Skin: Denies: rash Neurological: Reports: headache. Denies: weakness, confusion Past Medical History Past Medical History: Atrial Fibrillation, CVA/TIA, GERD/Reflux, Hyperlipidemia , Hypertension, Skin Disorder, Thyroid Disorder Additional Past Medical History / Comment(s): PSORIASIS History of Any Multi-Drug Resistant Organisms: None Reported Past Surgical History: Section, Cholecystectomy Additional Past Surgical History / Comment(s): jaw and pelvis surgery from accident many years ago Past Anesthesia/Blood Transfusion Reactions: Postoperative Nausea & Vomiting ( PONV) Past Psychological History: Anxiety, Depression Smoking Status: Never smoker Past Alcohol Use History: None Reported Past Drug Use History: None Reported - Past Family History Mother Family Medical History: CVA/TIA Additional Family Medical History / Comment(s): bowel disorder Father Family Medical History: Diabetes Mellitus, Myocardial Infarction ([place]) General Exam Limitations: no limitations General appearance: alert, in no apparent distress Head exam: Present: other (Left Frontal parietal soft tissue swelling.) Eye exam: Present: normal appearance, PERRL, EOMI ENT exam: Present: normal oropharynx Neck exam: Present: normal inspection. Absent: tenderness Respiratory exam: Present: normal lung sounds bilaterally Cardiovascular Exam: Present: regular rate, normal rhythm GI/Abdominal exam: Present: soft. Absent: tenderness Extremities exam: Present: tenderness (Mild to moderate tenderness and swelling left knee) Back exam: Present: normal inspection. Absent: tenderness, vertebral tenderness Neurological exam: Present: alert, oriented X3, CN II-XII intact. Absent: motor sensory deficit Expanded Neurological exam: Present: protecting the airway Patient oriented to: Present: person, place, time Speech: Present: fluid speech Cranial nerves: EOM's Intact: Normal Motor strength exam: RUE: 5, LUE: 5, RLE: 5, LLE: 5 Eye Response: (4) open spontaneously Motor Response: (6) obeys commands Verbal Response: (5) oriented Psychiatric exam: Present: normal affect, normal mood Skin exam: Present: normal color Course Vital Signs 07/27/17 07/27/17 07/27/17 06:43 07:49 09:00 Temperature 97.2 F L Pulse Rate 98 126 H 138 H Respiratory 18 18 16 Rate Blood Pressure 174/124 178/116 146/112 O2 Sat by Pulse 98 95 96 Oximetry 07/27/17 09:39 Temperature Pulse Rate 114 H Respiratory 16 Rate Blood Pressure 165/96 O2 Sat by Pulse 97 Oximetry Medical Decision Making - Medical Decision Making Patient has been cleared from head injury at 8 AM Patient was previously reevaluated and did not feel comfortable with discharge secondary to continued knee discomfort. In addition patient remained tachycardic and hypertensive. Blood work was added on. Case was discussed with Dr. Kate, who will admit for Dr. Gregory. - Lab Data Result diagrams: 07/27/17 06:45 07/27/17 06:45 Lab Results 07/27/17 07/27/17 07/27/17 Range/Units 06:45 06:45 06:45 WBC 6.7 (3.8-10.6) k/uL RBC 4.00 (3.80-5.40) m/uL Hgb 11.8 (11.4-16.0) gm/dL Hct 37.2 (34.0-46.0) % MCV 93.0 (80.0-100.0) fL MCH 29.6 (25.0-35.0) pg MCHC 31.8 (31.0-37.0) g/dL RDW 15.5 (11.5-15.5) % Plt Count 193 (150-450) k/uL Neutrophils % 65 % Lymphocytes % 25 % Monocytes % 5 % Eosinophils % 3 % Basophils % 1 % Neutrophils # 4.3 (1.3-7.7) k/uL Lymphocytes # 1.7 (1.0-4.8) k/uL Monocytes # 0.4 (0-1.0) k/uL Eosinophils # 0.2 (0-0.7) k/uL Basophils # 0.1 (0-0.2) k/uL PT (9.0-12.0) sec INR (<1.2) APTT (22.0-30.0) sec Sodium 144 (137-145) mmol/L Potassium 3.6 (3.5-5.1) mmol/L Chloride 105 (98-107) mmol/L Carbon Dioxide 26 (22-30) mmol/L Anion Gap 13 mmol/L BUN 15 (7-17) mg/dL Creatinine 0.83 (0.52-1.04) mg/dL Est GFR (MDRD) Af Amer >60 (>60 ml/min/1.73 sqM) Est GFR (MDRD) Non-Af >60 (>60 ml/min/1.73 sqM) Glucose 98 (74-99) mg/dL Calcium 9.6 (8.4-10.2) mg/dL Magnesium 2.2 (1.6-2.3) mg/dL Total Bilirubin 0.4 (0.2-1.3) mg/dL AST 22 (14-36) U/L ALT 18 (9-52) U/L Alkaline Phosphatase 80 (38-126) U/L Total Creatine Kinase 41 (30-135) U/L CK-MB (CK-2) 1.1 (0.0-2.4) ng/mL CK-MB (CK-2) Rel Index 2.7 Troponin I <0.012 (0.000-0.034) ng/mL Total Protein 7.2 (6.3-8.2) g/dL Albumin 3.9 (3.5-5.0) g/dL TSH 56.900 H (0.465-4.680) mIU/L 07/27/17 Range/Units 06:45 WBC (3.8-10.6) k/uL RBC (3.80-5.40) m/uL Hgb (11.4-16.0) gm/dL Hct (34.0-46.0) % MCV (80.0-100.0) fL MCH (25.0-35.0) pg MCHC (31.0-37.0) g/dL RDW (11.5-15.5) % Plt Count (150-450) k/uL Neutrophils % % Lymphocytes % % Monocytes % % Eosinophils % % Basophils % % Neutrophils # (1.3-7.7) k/uL Lymphocytes # (1.0-4.8) k/uL Monocytes # (0-1.0) k/uL Eosinophils # (0-0.7) k/uL Basophils # (0-0.2) k/uL PT 19.4 H (9.0-12.0) sec INR 2.1 H (<1.2) APTT 27.6 (22.0-30.0) sec Sodium (137-145) mmol/L Potassium (3.5-5.1) mmol/L Chloride (98-107) mmol/L Carbon Dioxide (22-30) mmol/L Anion Gap mmol/L BUN (7-17) mg/dL Creatinine (0.52-1.04) mg/dL Est GFR (MDRD) Af Amer (>60 ml/min/1.73 sqM) Est GFR (MDRD) Non-Af (>60 ml/min/1.73 sqM) Glucose (74-99) mg/dL Calcium (8.4-10.2) mg/dL Magnesium (1.6-2.3) mg/dL Total Bilirubin (0.2-1.3) mg/dL AST (14-36) U/L ALT (9-52) U/L Alkaline Phosphatase (38-126) U/L Total Creatine Kinase (30-135) U/L CK-MB (CK-2) (0.0-2.4) ng/mL CK-MB (CK-2) Rel Index Troponin I (0.000-0.034) ng/mL Total Protein (6.3-8.2) g/dL Albumin (3.5-5.0) g/dL TSH (0.465-4.680) mIU/L - Radiology Data Radiology results: report reviewed (Computed tomography scan of the brain and cervical spine shows no acute process. There is a scalp hematoma. There is degenerative disc disease. Encephalomalacia suggesting prior infarcts.), image reviewed (Left knee x-ray shows no acute process. Two-view chest x-ray shows suspected cardiomegaly.) Disposition Clinical Impression: Atrial fibrillation with RVR, Fall, Hypertension Disposition: ADMITTED IP TO THIS [facility] Referrals: Emile Gregory MD [Primary Care Provider] - 1-2 days
--- NOTE | 2017-07-27 07:47 | CT ---
EXAMINATION TYPE: CT brain minorine wo con DATE OF EXAM: 07/27/2017 COMPARISON: CT brain 2011 HISTORY: Fall CT DLP: 1431.3 mGycm. Automated Exposure Control for Dose Reduction was Utilized. TECHNIQUE: CT scan of the head and cervical spine are performed without contrast. FINDINGS: There is encephalomalacia within the right middle cerebral artery distribution from prior i nfarct, new from 2011. This results in expected dilatation of the frontal horn of the right lateral v entricle. There is generalized volume loss demonstrated sulcal and ventricular prominence that is sym metric. Old lacunar injury of the left external capsule is seen. Atherosclerosis is noted the intracr anial vasculature. Paranasal sinuses and mastoid air cells are well aerated. Left frontoparietal scal p hematoma is a thickness of 1.2 cm. No underlying calvarial fracture or subdural hematoma is seen. N o evidence of intracranial hemorrhage or midline shift. Cervical spine is visualized in its entirety from C1 through upper thoracic levels and demonstrates s atisfactory alignment without evidence of acute fracture or dislocation. Prevertebral soft tissue ap pears within normal limits. The C1-C2 articulation is unremarkable. There is degenerative narrowing of the ligament of dental interval and small posterior disc osteophyt e complexes from C3 through C6. There is resultant mild spinal canal stenosis at these levels. Mild u ncovertebral hypertrophy and mild facet arthropathy are also seen resulting in mild left neural sandy inal narrowing at C3-C4, C4-C5, and C5-C6. Lung apices demonstrate subsegmental atelectasis and multi focal groundglass opacities may also represent atelectasis or pneumonitis. IMPRESSION: 1. There is no acute fracture or dislocation evident in the cervical spine. 2. No acute intracranial hemorrhage, mass effect, or midline shift is seen. 3. Left frontoparietal scalp hematoma measuring 1.2 cm in greatest thickness with no underlying lucy rial fracture or intracranial hemorrhage. 4. 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 5. Multilevel mild degenerative disc disease of the cervical spine resulting in multilevel mild spina l canal stenosis or neural foraminal narrowing as described above.
--- NOTE | 2017-07-27 07:57 | XR ---
EXAMINATION TYPE: XR knee complete LT DATE OF EXAM: 07/27/2017 CLINICAL HISTORY: Fall and left knee pain TECHNIQUE: Three views of the left knee are obtained. COMPARISON: None. FINDINGS: There is no acute fracture/dislocation evident in left knee. The tri-compartment joint sp aces appear within normal limits. There is generalized soft tissue swelling of the left knee most pro nounced laterally. Mild tricompartmental arthrosis is demonstrated as marginal osteophytes and joint space narrowing. Atherosclerosis is also noted. No significant suprapatellar joint effusion. IMPRESSION: Generalized soft tissue swelling of the left knee most pronounced laterally with no discr ete fracture or dislocation identified.
[2017-07-27] MEDS ORDERED: MORPHINE SULFATE 4 MG/ML SYRINGE IV STA (09:09)
[2017-07-27] MEDS ORDERED: DILTIAZEM 5 MG/ML 5 ML VIAL IVP STA (09:10)
[2017-07-27] MEDS ORDERED: DILTIAZEM 125 MG in SODIUM CHLORIDE 0.9% 100 ML IV ONE (09:10)
[2017-07-27] MEDS ORDERED: MORPHINE SULFATE 4 MG/ML SYRINGE IVP STA (09:13)
[2017-07-27 09:31] LABS: Basophils # (A) 0.1 k/uL (0-0.2); Basophils % (A) 1 %; Eosinophils # (A) 0.2 k/uL (0-0.7); Eosinophils % (A) 3 %; HCT 37.2 % (34.0-46.0); HGB 11.8 gm/dL (11.4-16.0); Lymphocytes # (A) 1.7 k/uL (1.0-4.8); Lymphocytes % (A) 25 %; MCH 29.6 pg (25.0-35.0); MCHC 31.8 g/dL (31.0-37.0); Mean Platelet Volume 8.7; Monocytes # (A) 0.4 k/uL (0-1.0); Monocytes % (A) 5 %; Neutrophils # (A) 4.3 k/uL (1.3-7.7); Neutrophils % (A) 65 %; Platelet Count 193 k/uL (150-450); RDW 15.5 % (11.5-15.5); WBC 6.7 k/uL (3.8-10.6)
--- NOTE | 2017-07-27 09:38 | XR ---
EXAMINATION TYPE: XR chest 2V DATE OF EXAM: 07/27/2017 COMPARISON: Prior chest x-ray 03/27/2017 HISTORY: Dysrhythmia TECHNIQUE: Frontal and lateral views of the chest are obtained. FINDINGS: There is improvement in the small pleural effusions seen on previous exam. The heart is en larged. No evident airspace disease, pneumothorax, or pleural effusion. There are overlying cardiac l leilani. Pulmonary vascularity and marty within normal limits. Prominent lung volume could be indicative of underlying COPD. IMPRESSION: Improvement in patient's pleural effusions. Suspect cardiomegaly.
[2017-07-27 09:41] LABS: ALT 18 U/L (9-52); AST 22 U/L (14-36); Albumin 3.9 g/dL (3.5-5.0); Alkaline Phosphatase 80 U/L (38-126); Anion Gap 13 mmol/L; Blood Urea Nitrogen 15 mg/dL (7-17); Calcium 9.6 mg/dL (8.4-10.2); Carbon Dioxide 26 mmol/L (22-30); Chloride 105 mmol/L (98-107); Glucose 98 mg/dL (74-99); Magnesium 2.2 mg/dL (1.6-2.3); Potassium 3.6 mmol/L (3.5-5.1); Sodium 144 mmol/L (137-145); Total Bilirubin 0.4 mg/dL (0.2-1.3); Total Protein 7.2 g/dL (6.3-8.2)
[2017-07-27 09:45] LABS: INR 2.1 (<1.2); Partial Thromboplastin Time 27.6 sec (22.0-30.0); Prothrombin Time 19.4 sec (9.0-12.0)
[2017-07-27 09:59] LABS: Creatine Kinase 41 U/L (30-135)
[2017-07-27 10:12] LABS: Creatine Kinase MB 1.1 ng/mL (0.0-2.4); Troponin I <0.012 ng/mL (0.000-0.034)
[2017-07-27] MEDS ORDERED: ONDANSETRON 4 MG/2 ML VIAL IVP STA (10:20)
[2017-07-27] MEDS ORDERED: ENALAPRILAT 1.25 MG/ML 1 ML VIAL IVP STA (10:24)
[2017-07-27] MEDS ORDERED: ACETAMINOPHEN TAB 325 MG TAB PO PRN (10:25)
[2017-07-27] MEDS ORDERED: NALOXONE 0.4 MG/ML 1 ML VIAL IV PRN (10:25)
[2017-07-27] MEDS ORDERED: traMADol 50 MG TAB PO PRN (10:25)
[2017-07-27 10:49] LABS: T4, Free (Free Thyroxine) 0.63 ng/dL (0.78-2.19)
[2017-07-27] MEDS: SODIUM CHLORIDE 0.9% 1,000 ML IV SCH (11:02)
[2017-07-27] MEDS ORDERED: METOCLOPRAMIDE 5 MG/ML 2 ML VIAL IVP PRN (11:35)
[2017-07-27] MEDS ORDERED: METOPROLOL TARTRATE 50 MG TAB PO STA (14:32)
--- NOTE | 2017-07-27 14:37 | P.CRDCN ---
History of Present Illness Consult date: 07/27/17 Requesting physician: Judit Palma Reason for Consult (text): atrial fibrillation with RVR Chief complaint: trip and fall at home History of present illness: This is a pleasant 82-year-old female patient who follows with Dr. Oconnor in the office. She has history of chronic atrial fibrillation, anticoagulated on Coumadin, hypertension, hyperlipidemia, CAD with a known intermediate lesion involving the proximal LAD in the range of about 50% and hypothyroidism. Presented to the emergency department after tripping and falling at home. She's been in her usual state of health and has had no recent complaints. Woke up early this morning around 5 AM to use the restroom did not turn the lights on and tripped and subsequent he fell. She didn't hit her head and a computed tomography scan was done that showed left frontoparietal scalp hematoma measuring 1.2 cm in greatest thickness with no underlying calvarial fracture or intracranial hemorrhage. Due to the fall and coming to the emergency department, patient missed her morning dose of her medications including metoprolol. She was subsequently found to be in atrial fibrillation with rapid ventricular response with a heart rate in the 120s and her blood pressure was elevated. She has been initiated on a Cardizem drip at 5 mg an hour. Her heart rate is currently in the 70s and 80s. Blood pressure remains elevated. Patient is complaining of some significant left knee pain. X-ray of the knee show generalized soft tissue swelling of the left knee most pronounced laterally with no discrete fracture or dislocation identified. Chest x-ray showed improvement in patient's pleural effusions, suspected cardiomegaly. Her values were reviewed and showed an INR of 2.1 with an elevated TSH of 56.9 and a T4 of 0.63. She is apparently not been taking her levothyroxine regularly at home. Upon examination, patient is resting comfortably in bed. She denies complaints of chest discomfort, dizziness, lightheadedness or syncope. She also denies complaints of shortness of breath. She does complain of left knee and had pain as well as some nausea and vomiting. 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 History of Any Multi-Drug Resistant Organisms: None Reported Past Surgical History: Section, Cholecystectomy Additional Past Surgical History / Comment(s): jaw and pelvis surgery from accident many years ago, L cataract removed. Past Anesthesia/Blood Transfusion Reactions: Postoperative Nausea & Vomiting ( PONV) Additional Past Anesthesia/Blood Transfusion Reaction / Comment(s): Pt believes she received blood after her accident many yrs ago without reaction. Smoking Status: Never smoker - Past Family History Mother Family Medical History: CVA/TIA Additional Family Medical History / Comment(s): Mother of a CVA at the age of 92 yrs. She also had a bowel disorder Father Family Medical History: Diabetes Mellitus, Myocardial Infarction (SC) Additional Family Medical History / Comment(s): Father of a SC at the age of 88yrs. Medications and Allergies Home Medications Medication Instructions Recorded Confirmed Type Aspirin EC [Ecotrin Low Dose] 81 mg PO DAILY 03/11/16 07/27/17 History Levothyroxine Sodium [Synthroid] 100 mcg PO DAILY 03/11/16 07/27/17 History Nystatin 100,000 Unit/gm Powd 1 applic TOPICAL DAILY 03/25/17 07/27/17 History [Mycostatin Powder] Furosemide [Lasix] 40 mg PO DAILY 30 Days #30 tab 03/27/17 07/27/17 Rx Metoprolol Tartrate [Lopressor] 25 mg PO BID #60 tab 03/27/17 07/27/17 Rx Citalopram Hydrobromide [CeleXA] 20 mg PO DAILY 07/27/17 07/27/17 History Simvastatin [Zocor] 20 mg PO HS 07/27/17 07/27/17 History Warfarin [Coumadin] 2.5 mg PO FR 07/27/17 07/27/17 History Warfarin [Coumadin] 5 mg PO SUMOTUWETHSA 07/27/17 07/27/17 History Allergies Allergy/AdvReac Type Severity Reaction Status Date / Time Penicillins Allergy Rash/Hives Verified 07/27/17 09:23 Sulfa (Sulfonamide Allergy Unknown Verified 07/27/17 09:23 Antibiotics) Childhood adhesive tape AdvReac PEELS SKIN Verified 07/27/17 09:23 Physical Exam Vitals: Vital Signs Temp Pulse Resp BP Pulse Ox 07/27/17 11:00 109 H 18 183/74 96 07/27/17 10:00 101 H 16 183/102 97 07/27/17 09:39 114 H 16 165/96 97 07/27/17 09:00 138 H 16 146/112 96 07/27/17 07:49 126 H 18 178/116 95 07/27/17 06:43 97.2 F L 98 18 174/124 98 Intake and Output 07/26/17 07/27/17 07/27/17 22:59 06:59 14:59 Other: Weight 72.575 kg PHYSICAL EXAMINATION: HEENT: Head with area of ecchymosis and hematoma to left frontoparietal scalp. Pupils equal, round. Neck is supple. There is no elevated jugular venous pressure. HEART EXAMINATION: Heart sounds irregularly irregular, S1 and S2 with a systolic murmur. CHEST EXAMINATION: Lungs are clear to auscultation and precussion. No chest wall tenderness is noted on palpation or with deep breathing. ABDOMEN: Soft, nontender. Bowel sounds are heard. No organomegaly noted. EXTREMITIES: 2+ peripheral pulses with no evidence of peripheral edema and no calf tenderness noted. NEUROLOGIC patient is awake, alert and oriented x3. . Results 07/27/17 06:45 07/27/17 06:45 Cardiac Enzymes 07/27/17 07/27/17 Range/Units 06:45 06:45 AST 22 (14-36) U/L CK-MB (CK-2) 1.1 (0.0-2.4) ng/mL Troponin I <0.012 (0.000-0.034) ng/mL Coagulation 07/27/17 Range/Units 06:45 PT 19.4 H (9.0-12.0) sec APTT 27.6 (22.0-30.0) sec CBC 07/27/17 Range/Units 06:45 WBC 6.7 (3.8-10.6) k/uL RBC 4.00 (3.80-5.40) m/uL Hgb 11.8 (11.4-16.0) gm/dL Hct 37.2 (34.0-46.0) % Plt Count 193 (150-450) k/uL Comprehensive Metabolic Panel 07/27/17 Range/Units 06:45 Sodium 144 (137-145) mmol/L Potassium 3.6 (3.5-5.1) mmol/L Chloride 105 (98-107) mmol/L Carbon Dioxide 26 (22-30) mmol/L BUN 15 (7-17) mg/dL Creatinine 0.83 (0.52-1.04) mg/dL Glucose 98 (74-99) mg/dL Calcium 9.6 (8.4-10.2) mg/dL AST 22 (14-36) U/L ALT 18 (9-52) U/L Alkaline Phosphatase 80 (38-126) U/L Total Protein 7.2 (6.3-8.2) g/dL Albumin 3.9 (3.5-5.0) g/dL Current Medications Generic Name Dose Route Start Last Admin Trade Name Freq PRN Reason Stop Dose Admin Acetaminophen 650 mg 07/27/17 10:25 Tylenol Tab PO Q6HR PRN Mild Pain or Fever > 100.5 Diltiazem HCl 125 mg/ Sodium 125 mls @ 5 mls/hr 07/27/17 09:10 07/27/17 09:37 Chloride IV 07/28/17 09:09 5 mg/hr .Q24H ONE 5 mls/hr 5 MG/HR Administration Sodium Chloride 1,000 mls @ 20 mls/hr 07/27/17 10:30 07/27/17 11:02 Saline 0.9% IV 20 mls/hr .Q24H MARYAM Administration Metoclopramide HCl 5 mg 07/27/17 11:35 07/27/17 12:32 Reglan IVP 5 mg Q6HR PRN Administration Nausea And Vomiting Naloxone HCl 0.2 mg 07/27/17 10:25 Narcan IV Q2M PRN Opioid Reversal Tramadol HCl 50 mg 07/27/17 10:25 Ultram PO Q6H PRN Moderate Pain Intake and Output 07/26/17 07/27/17 07/27/17 22:59 06:59 14:59 Other: Weight 72.575 kg 07/27/17 06:45 07/27/17 06:45 EKG Interpretations (text) Atrial fibrillation with nonspecific ST-T wave abnormalities Assessment and Plan Assessment: #1 trip and fall at home with no evidence of syncope #2 left frontoparietal scalp hematoma and left knee soft tissue injury as a result of fall #3 chronic atrial fibrillation, with rapid ventricular response after missing morning medications #4 hypertension #5 history of nonobstructive CAD #6 hypothyroidism Plan: From cardiology's perspective, we will give metoprolol 50 mg by mouth 1 now and discontinue Cardizem drip and about 2 hours. We will resume her home dose of metoprolol 25 mg by mouth twice a day. I discussed with the patient the importance of medication compliance especially in regards to her thyroid. We will resume her levothyroxine 100mcg daily. Continue to follow patient provided further recommendations accordingly. SCHEDULE CLERK note has been reviewed, I agree with a documented findings and plan of care. Patient was seen and examined.
[2017-07-27] MEDS ORDERED: ONDANSETRON 4 MG/2 ML VIAL IVP PRN (16:25)
[2017-07-27] MEDS ORDERED: ONDANSETRON 4 MG/2 ML VIAL ONE (16:31)
[2017-07-27] MEDS ORDERED: PROMETHAZINE INJ 6.25 MG in SODIUM CHLORIDE 0.9% 50 ML IVPB PRN (17:24)
[2017-07-27] MEDS ORDERED: WARFARIN 2.5 MG TAB PO SCH (18:00)
[2017-07-27] MEDS: PANTOPRAZOLE 40 MG/10 ML VIAL IVP SCH (18:49)
[2017-07-27] MEDS: FUROSEMIDE 40 MG TAB PO SCH (18:54)
[2017-07-27] MEDS: ATORVASTATIN 10 MG TAB PO SCH (20:27)
[2017-07-27] MEDS: METOPROLOL TARTRATE 25 MG TAB PO SCH (20:27)
--- NOTE | 2017-07-27 20:42 | HP ---
HISTORY AND PHYSICAL DATE OF ADMISSION: 07/27/2017. Chief complaint is as follows: BRIEF HISTORY ON THIS PATIENT: An 82-year-old female patient who presented to ED after she had a fall. Patient claims she went up to go to the bathroom and did not check the lights and tripped and fell down. She did hit left part of her head, but there was no loss of consciousness and no syncope. In the ED, patient was found to be tachycardic in atrial fibrillation. She was started on Cardizem drip and is admitted for further evaluation. She has a past medical history significant for history of atrial fibrillation, CVA/TIA, gastroesophageal reflux disease, hypertension, hyperlipidemia, hypothyroidism, history of psoriasis. PAST SURGICAL HISTORY: Significant for section, cholecystectomy, pelvis surgery. She is allergic to PENICILLIN, SULFA DRUGS and ADHESIVE TAPE. MEDICATIONS: 1. Lasix 40 mg daily. 2. Lopressor 25 mg b.i.d. 3. Ecotrin 81 mg daily. 4. Levothyroxine 100 mcg daily. 5. Nystatin 1 application topically daily. 6. Celexa 20 mg daily. 7. Zocor 20 mg p.o. q.h.s. 8. Coumadin 5 mg alternating with 2.5 mg daily. The patient's social history: The patient has no history of smoking or alcohol abuse. Family history is significant for history of CVA in mother and HI and diabetes in father. REVIEW OF SYSTEMS: GENERAL: No fever, chills. HEENT: No vision or hearing loss. RESPIRATORY: No shortness of breath or chest congestion. CARDIOVASCULAR: History of palpitations. No chest pain. ENDOCRINE: No polyuria, polydipsia. GASTROINTESTINAL: No abdominal pain, nausea, vomiting. GI: No dysuria. MUSCULOSKELETAL: No back pain. SKIN: No rashes or pigmentation. NEUROLOGICAL: No weakness, dizziness, confusion. PHYSICAL EXAMINATION: VITAL SIGNS: Temperature 97.2, pulse 98, respiration 18, blood pressure 174/124, O2 saturation 98%. HEENT: Atraumatic, normocephalic. Pupils equal and react to light. Extraocular movements intact. Buccal mucosa is fair. Neck is supple. No goiter, lymphadenopathy. JVD is negative. No carotid bruit heard. Lungs are clear to auscultate. No rales, rhonchi, wheezes. Heart is irregularly irregular, tachycardic. Abdomen is soft, nontender, nondistended. Bowel sounds positive. EXTREMITIES: No edema, clubbing, cyanosis. NEUROLOGICAL: Cranial nerves 2-12 grossly intact. No gross motor or sensory deficit. Skin is warm, dry and intact. LYMPHATICS: No cervical or axillary lymph nodes palpable. LABS: CBC: White blood count 6.7, hemoglobin 11.8, hematocrit 37.2 and platelet count of 193. Chemical profile: Sodium 141, potassium 3.6, chloride 105, bicarb 26, BUN 15, creatinine 0.8 and glucose of 98. EKG shows A. fib. With RVR. ASSESSMENT: 1. Atrial fibrillation with rapid ventricular response. 2. Mechanical fall. No evidence of syncope. 3. Left frontoparietal scalp hematoma and left knee soft tissue injury. 4. Accelerated hypertension. 5. History of hypothyroidism. Plan is to admit the patient to telemetry. Patient remains on IV Cardizem drip. Will consult Cardiology, monitor tropes, EKG. Continue all home medications. Will monitor thyroid levels. Further recommendations after patient is seen by Cardiology. MMODL / IJN: [id number] /
[2017-07-28 01:37] LABS: Appearance,Urine Cloudy (Clear); Bacteria,Urine Many /hpf; Bilirubin,Urine Negative (Negative); Blood,Urine Small (Negative); Color,Urine Light Yellow; Glucose,Urine (UA) Negative (Negative); Hyaline Casts,Urine 3 /lpf (0-2); Ketones,Urine Negative (Negative); Leukocyte Esterase,Urine Large (Negative); Mucus,Urine Occasional /hpf; Nitrite,Urine Positive (Negative); PH, Urine 5.5 (5.0-8.0); Protein,Urine Negative (Negative); RBC,Urine >182 /hpf (0-5); Specific Gravity,Urine 1.007 (1.001-1.035); Squamous Epithelial Cell,Urine 5 /hpf (0-4); Urobilinogen,Urine <2.0 mg/dL (<2.0); WBC,Urine 178 /hpf (0-5)
[2017-07-28] MEDS: LEVOTHYROXINE 100 MCG TAB PO SCH (06:39)
[2017-07-28] MEDS: FUROSEMIDE 40 MG TAB PO SCH (08:37)
[2017-07-28] MEDS: METOPROLOL TARTRATE 25 MG TAB PO SCH ×2 (08:37→20:26)
[2017-07-28] MEDS: PANTOPRAZOLE 40 MG/10 ML VIAL IVP SCH (08:38)
[2017-07-28] MEDS: ASPIRIN 81 MG PO SCH (08:38)
[2017-07-28] MEDS ORDERED: METOPROLOL TARTRATE 25 MG TAB PO STA (11:29)
[2017-07-28 11:42] LABS: Basophils # (A) 0.1 k/uL (0-0.2); Basophils % (A) 0 %; Eosinophils # (A) 0.1 k/uL (0-0.7); Eosinophils % (A) 1 %; HGB 11.4 gm/dL (11.4-16.0); Hypochromasia Slight; Lymphocytes # (A) 1.9 k/uL (1.0-4.8); Lymphocytes % (A) 16 %; MCH 29.6 pg (25.0-35.0); MCHC 30.8 g/dL (31.0-37.0); MCV 96.2 fL (80.0-100.0); Mean Platelet Volume 7.9; Monocytes # (A) 0.7 k/uL (0-1.0); Monocytes % (A) 6 %; Neutrophils # (A) 8.6 k/uL (1.3-7.7); Neutrophils % (A) 75 %; Platelet Count 223 k/uL (150-450); RBC 3.84 m/uL (3.80-5.40); RDW 15.4 % (11.5-15.5); WBC 11.5 k/uL (3.8-10.6)
[2017-07-28 11:48] LABS: INR 2.6 (<1.2)
[2017-07-28 11:53] LABS: Anion Gap 15 mmol/L; Blood Urea Nitrogen 17 mg/dL (7-17); Calcium 9.5 mg/dL (8.4-10.2); Carbon Dioxide 30 mmol/L (22-30); Chloride 99 mmol/L (98-107); Glucose 67 mg/dL (74-99); Potassium 3.1 mmol/L (3.5-5.1); Sodium 144 mmol/L (137-145)
[2017-07-28] MEDS ORDERED: Potassium Replacement Protocol 1 EACH MISC MISCELLANE PRN (12:10)
[2017-07-28] MEDS: POTASSIUM CHLORIDE ER 20 MEQ TAB.ER PO SCH ×3 (12:28→14:33)
--- NOTE | 2017-07-28 12:57 | P.PN ---
Subjective Progress Note Date: 07/28/17 This is a pleasant 82-year-old female patient who follows with Dr. Oconnor in the office. She has history of chronic atrial fibrillation, anticoagulated on Coumadin, hypertension, hyperlipidemia, CAD with a known intermediate lesion involving the proximal LAD in the range of about 50% and hypothyroidism. Presented to the emergency department after tripping and falling at home. She's been in her usual state of health and has had no recent complaints. Woke up early this morning around 5 AM to use the restroom did not turn the lights on and tripped and subsequent he fell. She didn't hit her head and a computed tomography scan was done that showed left frontoparietal scalp hematoma measuring 1.2 cm in greatest thickness with no underlying calvarial fracture or intracranial hemorrhage. Due to the fall and coming to the emergency department, patient missed her morning dose of her medications including metoprolol. She was subsequently found to be in atrial fibrillation with rapid ventricular response with a heart rate in the 120s and her blood pressure was elevated. She has been initiated on a Cardizem drip at 5 mg an hour. Her heart rate is currently in the 70s and 80s. Blood pressure remains elevated. Patient is complaining of some significant left knee pain. X-ray of the knee show generalized soft tissue swelling of the left knee most pronounced laterally with no discrete fracture or dislocation identified. Chest x-ray showed improvement in patient's pleural effusions, suspected cardiomegaly. Laboratory values were reviewed and showed an INR of 2.1 with an elevated TSH of 56.9 and a T4 of 0.63. She is apparently not been taking her levothyroxine regularly at home. 07/28/2017: Patient was seen and examined today. She is feeling quite a bit better today, numbness much pain. Heart rates remain 97 low 100s on metoprolol 25 mg by mouth twice a day. Laboratory values from today show an INR of 2.6, potassium is low at 3.1. Objective - Vital Signs Vital signs: Vital Signs Temp 97 F L 07/28/17 11:33 Pulse 72 07/28/17 11:33 Resp 16 07/28/17 11:33 BP 163/69 07/28/17 11:33 Pulse Ox 97 07/28/17 11:33 Intake & Output 07/27/17 07/28/17 07/28/17 18:59 06:59 18:59 Intake Total 580 Output Total 450 Balance 130 Weight 72.575 kg 74.2 kg Intake: Intake, IV Titration 100 Amount Diltiazem 125 mg In 20 Sodium Chloride 0.9% 100 ml @ 5 MG/HR 5 mls/hr IV .Q24H ONE Rx#:[id number] Sodium Chloride 0.9% 1, 80 000 ml @ 20 mls/hr IV . Q24H [facility] Rx#:[id number] Oral 480 Output: Urine 400 Emesis 50 Other: Voiding Method Bedside Commode # Voids 1 - Exam PHYSICAL EXAMINATION: HEENT: Head is atraumatic, normocephalic. Pupils equal, round. Neck is supple. There is no elevated jugular venous pressure. HEART EXAMINATION: Heart sounds irregularly irregular, S1 and S2 with a systolic murmur. CHEST EXAMINATION: Lungs are clear to auscultation and precussion. No chest wall tenderness is noted on palpation or with deep breathing. ABDOMEN: Soft, nontender. Bowel sounds are heard. No organomegaly noted. EXTREMITIES: 2+ peripheral pulses with no evidence of peripheral edema and no calf tenderness noted. NEUROLOGIC patient is awake, alert and oriented x3. . - Labs CBC & Chem 7: 07/28/17 11:06 07/28/17 11:06 Labs: Abnormal Lab Results - Last 24 Hours (Table) 07/28/17 07/28/17 07/28/17 Range/Units 01:00 11:06 11:06 WBC 11.5 H (3.8-10.6) k/uL MCHC 30.8 L (31.0-37.0) g/dL Neutrophils # 8.6 H (1.3-7.7) k/uL PT 23.0 H (9.0-12.0) sec INR 2.6 H (<1.2) Potassium (3.5-5.1) mmol/L Glucose (74-99) mg/dL Urine Appearance Cloudy H (Clear) Urine Blood Small H (Negative) Urine Nitrite Positive H (Negative) Ur Leukocyte Esterase Large H (Negative) Urine RBC >182 H (0-5) /hpf Urine WBC 178 H (0-5) /hpf Urine WBC Clumps Moderate H (None) /hpf Ur Squamous Epith Cells 5 H (0-4) /hpf Urine Bacteria Many H (None) /hpf Hyaline Casts 3 H (0-2) /lpf Urine Mucus Occasional H (None) /hpf 07/28/17 Range/Units 11:06 WBC (3.8-10.6) k/uL MCHC (31.0-37.0) g/dL Neutrophils # (1.3-7.7) k/uL PT (9.0-12.0) sec INR (<1.2) Potassium 3.1 L (3.5-5.1) mmol/L Glucose 67 L (74-99) mg/dL Urine Appearance (Clear) Urine Blood (Negative) Urine Nitrite (Negative) Ur Leukocyte Esterase (Negative) Urine RBC (0-5) /hpf Urine WBC (0-5) /hpf Urine WBC Clumps (None) /hpf Ur Squamous Epith Cells (0-4) /hpf Urine Bacteria (None) /hpf Hyaline Casts (0-2) /lpf Urine Mucus (None) /hpf Assessment and Plan Assessment: #1 trip and fall at home with no evidence of syncope #2 left frontoparietal scalp hematoma and left knee soft tissue injury as a result of fall #3 chronic atrial fibrillation, with rapid ventricular response after missing morning medications #4 hypertension #5 history of nonobstructive CAD #6 hypothyroidism Plan: From cardiology's perspective, we will increase metoprolol to 50 mg in the morning and 25 mg in the evening. We'll replace potassium with 20 mEq K-Dur 3. From our standpoint, patient may be discharged home today. She was again instructed on importance of medication compliance. She was advised to take Synthroid upon waking 30 minutes prior to eating or taking any other medications. She'll follow-up as an outpatient in the office. FLEXBOARD OPERATOR note has been reviewed, I agree with a documented findings and plan of care. Patient was seen and examined.
[2017-07-28] MEDS: LEVOFLOXACIN 500MG-D5W PMX 500 MG in DEXTROSE/WATER 1 100ML.BAG IVPB SCH (14:09)
[2017-07-28] MEDS: SODIUM CHLORIDE 0.9% 1,000 ML IV SCH (14:20)
[2017-07-28] MEDS: WARFARIN 5 MG TAB PO SCH (17:22)
--- NOTE | 2017-07-28 18:19 | PN ---
PROGRESS NOTE DATE OF SERVICE: 07/28/2017 Patient is seen in the room, complains of headache and also some aching pain in nape of the neck. The patient's Cardizem drip has been discontinued. Patient's heart rate is well controlled on metoprolol. VITAL SIGNS: Temperature of 97, pulse 72, respiration 16, blood pressure 163/69, O2 saturation 97%. The patient is awake, alert, oriented x3. No acute distress. HEENT: Atraumatic, normocephalic. Pupils equal and reactive to light. Extraocular movements intact. Buccal mucosa is fair Neck is supple. No goiter or lymphadenopathy. JVD is negative. No carotid bruit heard. Lungs are clear to auscultate. No rales, rhonchi, wheezes. Heart is irregularly, irregular with a faint systolic murmur. Abdomen is soft, nontender, nondistended. Bowel sounds positive. EXTREMITIES: No edema, clubbing or cyanosis. NEUROLOGICAL EXAMINATION: Patient is awake, alert, oriented x3. No gross motor or sensory deficit. Skin is warm, dry and intact. LAB: CBC white blood count of 11.5, hemoglobin 11.4, hematocrit 37, platelet count of 223. Chemical profile sodium 144, potassium 3.1, chloride 99, bicarb 30, BUN 17, creatinine 0.9. Glucose 67. ASSESSMENT: 1. Urinary tract infection. 2. Hypokalemia. 3. Atrial fibrillation with rapid ventricular response. 4. Mechanical fall. No evidence of syncope. 5. Left frontoparietal scalp hematoma with left knee soft tissue injury secondary to fall. 6. Accelerated hypertension. 7. Hypothyroidism. 8. Nonobstructive coronary artery disease. The patient's metoprolol has been increased 50 mg in the morning and 25 mg in the evening. Heart rate is well controlled. Cardizem is discontinued. Will replace the potassium with oral K-Dur. We will start patient on IV Levaquin for UTI. Await final urine cultures. Continue with current home medications. The patient is recommended to improve medication compliance. The patient understands. She has been cleared for discharge by Cardiology. Will continue current medications. Will monitor electrolytes and CBC and supplement as needed. Resume all home medications. Discharge once final urine culture report is available for discharge antibiotics. MMODL / IJN: [id number] /
[2017-07-28] MEDS: ATORVASTATIN 10 MG TAB PO SCH (20:26)
[2017-07-28] MEDS ORDERED: LORazepam 2 MG/ML INJ IV PRN (23:41)
[2017-07-29 06:05] LABS: Basophils # (A) 0.1 k/uL (0-0.2); Basophils % (A) 1 %; Eosinophils # (A) 0.3 k/uL (0-0.7); Eosinophils % (A) 3 %; HCT 36.1 % (34.0-46.0); HGB 11.3 gm/dL (11.4-16.0); Lymphocytes # (A) 2.3 k/uL (1.0-4.8); Lymphocytes % (A) 26 %; MCH 29.4 pg (25.0-35.0); MCHC 31.4 g/dL (31.0-37.0); MCV 93.7 fL (80.0-100.0); Mean Platelet Volume 7.8; Monocytes # (A) 0.5 k/uL (0-1.0); Monocytes % (A) 6 %; Neutrophils # (A) 5.4 k/uL (1.3-7.7); Neutrophils % (A) 63 %; Platelet Count 197 k/uL (150-450); RBC 3.85 m/uL (3.80-5.40); RDW 15.4 % (11.5-15.5); WBC 8.6 k/uL (3.8-10.6)
[2017-07-29 06:26] LABS: Anion Gap 12 mmol/L; Blood Urea Nitrogen 20 mg/dL (7-17); Calcium 9.5 mg/dL (8.4-10.2); Carbon Dioxide 28 mmol/L (22-30); Chloride 102 mmol/L (98-107); Glucose 88 mg/dL (74-99); Potassium 3.6 mmol/L (3.5-5.1); Sodium 142 mmol/L (137-145)
[2017-07-29] MEDS: LEVOTHYROXINE 100 MCG TAB PO SCH (06:28)
[2017-07-29] MEDS: ASPIRIN 81 MG PO SCH (09:58)
[2017-07-29] MEDS: CITALOPRAM HYDROBROMIDE 20 MG TAB PO SCH (09:59)
[2017-07-29] MEDS: METOPROLOL TARTRATE 50 MG TAB PO SCH (09:59)
[2017-07-29] MEDS: FUROSEMIDE 40 MG TAB PO SCH (09:59)
[2017-07-29] MEDS: PANTOPRAZOLE 40 MG TABLET PO SCH (10:00)
[2017-07-29] MEDS ORDERED: POTASSIUM CHLORIDE ER 20 MEQ TAB.ER PO STA (10:09)
[2017-07-29] MEDS: WARFARIN 5 MG TAB PO SCH (10:11)
[2017-07-29] MEDS: LEVOFLOXACIN 500MG-D5W PMX 500 MG in DEXTROSE/WATER 1 100ML.BAG IVPB SCH (14:30)
[2017-07-29] MEDS: SODIUM CHLORIDE 0.9% 1,000 ML IV SCH (14:40)
--- NOTE | 2017-07-29 15:12 | PN ---
PROGRESS NOTE Mrs Doss is in atrial fib with a rapid ventricular rate. This lady is not compliant with medications and although she gave Synthroid in her list, she is not taking the medication. Her rate control is somewhat better. We will continue current medical regimen. S1-S2 heard normally, irregular rhythm noted. Lungs reveal diminished air entry. Abdomen and lower extremity exam unchanged. Plan is to continue current medications. Advised to be compliant with her medications particularly thyroid supplements and based on clinical course, we will make further recommendations. MMODL / IJN: [id number] /
--- NOTE | 2017-07-29 17:39 | PN ---
PROGRESS NOTE DATE OF SERVICE: 07/29/2017 Patient is seen in the room. Claims she feels fine, voices no complaints. VITAL SIGNS: Temperature of 98.3, pulse 98, respiration 18, blood pressure 126/68, O2 saturation 96%. HEENT: Patient has worsening ecchymosis on the left side of the face. Hematoma left forehead is . Buccal mucosa is fair. Neck is supple. No goiter, lymphadenopathy. JVD is negative. No carotid bruit heard. Lungs are clear to auscultation. No rales, rhonchi, or wheezes. Heart is irregularly irregular with a faint systolic murmur. Abdomen is soft, nontender, nondistended. Bowel sounds positive. EXTREMITIES: No edema, clubbing or cyanosis. Pulses are palpable 2+. NEUROLOGICAL EXAMINATION: Patient is awake, alert, oriented x3. No acute motor or sensory deficit. Skin is warm, dry, intact. Ecchymoses on the left side of the face as described above. LABS: CBC: White blood count of 8.6, hemoglobin 11.3, hematocrit 36.1, and platelet count of 197. Chemical profile: Sodium 142, potassium 3.6, chloride 102, bicarb 28, BUN of 20, creatinine 0.95. ASSESSMENT: 1. Urinary tract infection. The patient remains on IV antibiotics. Remains on Levaquin, tolerating well. Will switch to oral Levaquin in about 24 hours. 2. Hypokalemia with this resolved. 3. Atrial fibrillation with RVR. The patient's TSH is markedly elevated and even though she shows thyroid medication on the list of medications she has not been compliant to the medication. Cardiology is following the patient. They have not recommended any further testing. Cardizem drip has been discontinued. 4. Mechanical fall with left leg ecchymoses, left-sided hematoma and closed head injury. Will consult PT, OT and increase activity and further evaluation and recommendation regarding discharge planning. 5. Left frontoparietal scalp hematoma and left knee soft tissue injury secondary to fall. 6. Accelerated hypertension, clinically stable. 7. Hypothyroidism. Again, patient is counseled on need to take all her medications as prescribed. 8. Nonobstructive coronary artery disease, which is stable. Possible discharge on oral antibiotics in next 24-48 hours after PT, OT evaluation on oral antibiotics. MMODL / IJN: [id number] /
[2017-07-29] MEDS ORDERED: WARFARIN 3 MG TAB PO ONE ×2 (18:00→21:30)
[2017-07-29] MEDS: ATORVASTATIN 10 MG TAB PO SCH (19:48)
[2017-07-29] MEDS: METOPROLOL TARTRATE 25 MG TAB PO SCH (19:49)
[2017-07-29 21:48] LABS: INR 2.7 (<1.2); Prothrombin Time 23.8 sec (9.0-12.0)
[2017-07-30 06:38] LABS: INR 2.7 (<1.2); Prothrombin Time 23.9 sec (9.0-12.0)
[2017-07-30] MEDS: LEVOTHYROXINE 100 MCG TAB PO SCH (06:55)
[2017-07-30 09:00] VITALS: BP 134/77; RESP 16; TEMP 97
[2017-07-30] MEDS: CITALOPRAM HYDROBROMIDE 20 MG TAB PO SCH (09:06)
[2017-07-30] MEDS: PANTOPRAZOLE 40 MG TABLET PO SCH (09:06)
[2017-07-30] MEDS: ASPIRIN 81 MG PO SCH (09:07)
[2017-07-30] MEDS: FUROSEMIDE 40 MG TAB PO SCH (09:07)
[2017-07-30] MEDS: METOPROLOL TARTRATE 50 MG TAB PO SCH (09:07)
[2017-07-30] MEDS: SODIUM CHLORIDE 0.9% 1,000 ML IV SCH (09:08)
[2017-07-30 10:48] VITALS: PULSE 118
--- NOTE | 2017-07-30 11:26 | P.DS ---
Providers Date of admission: 07/27/17 10:25 Expected date of discharge: 07/30/17 Attending physician: Emile Gregory Consults: 07/27/17 10:25 Consult Physician Urgent Consulting Provider: Kyle Oconnor Consult Reason/Comments: a fib Do you want consulting provider notified?: Yes Primary care physician: Emile Gregory [facility] Course: 82-year-old female presented the emergency room after a fall. Patient's as ecchymosis to left knee and face states it was a trip and fall. Patient was found to be in an A. fib with RVR was evaluated by cardiology medication was adjusted. Cardiology cleared for discharge. Patient will continue on Levaquin for a more days. Patient had a CT the head and neck that showed no acute changes Assessment Urinary tract infection on oral Levaquin Hypokalemia resolved Atrial fibrillation with RVR controlled Fall mechanical ecchymosis to left leg and face Hypertension Hypothyroidism Coronary artery disease stable Plan [facility] to [facility] care Follow-up with cardiology and family physician Dr. Emile Gregory Plan - Discharge Summary Discharge Rx Participant: No New Discharge Prescriptions: New Acetaminophen Tab [Tylenol] 650 mg PO Q6HR PRN tab PRN Reason: Mild Pain Or Fever > 100.5 Levofloxacin [Levaquin] 500 mg PO DAILY 8 Days #8 tab Metoprolol Tartrate [Lopressor] 50 mg PO DAILY 30 Days #30 tab Pantoprazole [Protonix] 40 mg PO DAILY 30 Days #30 tablet. traMADol HCl [Ultram] 50 mg PO Q6H PRN tab PRN Reason: Moderate Pain Continue Levothyroxine Sodium [Synthroid] 100 mcg PO DAILY Aspirin EC [Ecotrin Low Dose] 81 mg PO DAILY Nystatin 100,000 Unit/gm Powd [Mycostatin Powder] 1 applic TOPICAL DAILY Furosemide [Lasix] 40 mg PO DAILY 30 Days #30 tab Citalopram Hydrobromide [CeleXA] 20 mg PO DAILY Simvastatin [Zocor] 20 mg PO HS Warfarin [Coumadin] 2.5 mg PO FR Discontinued Metoprolol Tartrate [Lopressor] 25 mg PO BID #60 tab Warfarin [Coumadin] 5 mg PO SUMOTUWETHSA Discharge Medication List Aspirin EC [Ecotrin Low Dose] 81 mg PO DAILY 03/11/16 [History] Levothyroxine Sodium [Synthroid] 100 mcg PO DAILY 03/11/16 [History] Nystatin 100,000 Unit/gm Powd [Mycostatin Powder] 1 applic TOPICAL DAILY [History] Furosemide [Lasix] 40 mg PO DAILY 30 Days #30 tab 03/27/17 [Rx] Citalopram Hydrobromide [CeleXA] 20 mg PO DAILY 07/27/17 [History] Simvastatin [Zocor] 20 mg PO HS 07/27/17 [History] Warfarin [Coumadin] 2.5 mg PO FR 07/27/17 [History] Acetaminophen Tab [Tylenol] 650 mg PO Q6HR PRN tab 07/30/17 [Rx] Levofloxacin [Levaquin] 500 mg PO DAILY 8 Days #8 tab 07/30/17 [Rx] Metoprolol Tartrate [Lopressor] 50 mg PO DAILY 30 Days #30 tab 07/30/17 [Rx] Pantoprazole [Protonix] 40 mg PO DAILY 30 Days #30 tablet. 07/30/17 [Rx] traMADol HCl [Ultram] 50 mg PO Q6H PRN tab 07/30/17 [Rx] Follow up Appointment(s)/Referral(s): Emile Gregory MD [Primary Care Provider] - 1-2 days Patient Instructions/Handouts: A-fib (Atrial Fibrillation) (DC), Fall Prevention for Older Adults (DC), Safe Use of Anticoagulants (DC) Activity/Diet/Wound Care/Special Instructions: Sees Dr. Oconnor in office.
== END 2017-07-30 12:31 | disposition home or self-care (01) | DRG 309 ==
LOC: EC 06:36 → 6SEL 10:25
PROVIDERS: ADMIT Family Medicine; ATTEND Family Medicine
DX: I48.2 Chronic atrial fibrillation (principal); J90 Pleural effusion, not elsewhere classified; N39.0 Urinary tract infection, site not specified; E03.9 Hypothyroidism, unspecified; E78.5 Hyperlipidemia, unspecified; E87.6 Hypokalemia; I10 Essential (primary) hypertension; I25.10 Atherosclerotic heart disease of native coronary artery without angina pectoris; K21.9 Gastro-esophageal reflux disease without esophagitis; S00.03XA Contusion of scalp, initial encounter; W01.0XXA Fall on same level from slipping, tripping and stumbling without subsequent striking against object, initial encounter; Y92.009 Unspecified place in unspecified non-institutional (private) residence as the place of occurrence of the external cause; Z79.01 Long term (current) use of anticoagulants; Z79.899 Other long term (current) drug therapy; Z82.3 Family history of stroke; Z82.49 Family history of ischemic heart disease and other diseases of the circulatory system; Z83.3 Family history of diabetes mellitus; Z86.73 Personal history of transient ischemic attack (TIA), and cerebral infarction without residual deficits; Z88.0 Allergy status to penicillin; Z88.2 Allergy status to sulfonamides; Z91.14 Patient's other noncompliance with medication regimen; Z79.82 Long term (current) use of aspirin
CPT/HCPCS: 36415; 70450; 71046; 72125; 80048; 80053; 81001; 82550; 82553; 83735; 84439; 84443; 84481; 84484; 85025; 85610; 85730; 93005; 96365; 96366; 96375; 96376; 99285

== ENCOUNTER 2017-11-13 13:19 | Inpatient (IN) | payer MEDICARE, OTHER ==
[2017-11-13 13:25] VITALS: RESP 18
[2017-11-13] MEDS ORDERED: SODIUM CHLORIDE 0.9% 1,000 ML IV STA (13:33)
[2017-11-13] MEDS ORDERED: DILTIAZEM 5 MG/1 ML (25ML VIAL) IV STA (13:34)
--- NOTE | 2017-11-13 13:36 | ED ---
General Adult HPI - General Chief complaint: Arrhythmia/Palpitations Stated complaint: High Heart Rate Time Seen by Provider: 11/13/17 13:28 Source: patient, EMS, RN notes reviewed, old records reviewed Mode of arrival: ambulatory Limitations: no limitations - History of Present Illness Initial comments: This is an 82-year-old female the ER for evaluation. Patient is today for evaluation of weakness. Patient has multiple medical history of multiple medical problems including heart disease A. fib with RVR. Patient's found by EMS to be in A. fib with RVR. Patient himself at this time is awake alert denies any specific complaints. Per EMS and per family patient did fly from chair to the ground and was unable to get up. Patient does admit to heart racing currently - Related Data Home Medications Medication Instructions Recorded Confirmed Aspirin EC [Ecotrin Low Dose] 81 mg PO DAILY 03/11/16 11/13/17 Simvastatin [Zocor] 20 mg PO HS 07/27/17 11/13/17 Warfarin [Coumadin] 7.5 mg PO FR 07/27/17 11/13/17 Metoprolol Tartrate [Lopressor] 12.5 mg PO BID 11/13/17 11/13/17 Warfarin Sodium [Coumadin] 5 mg PO SUMOTUWETHSA 11/13/17 11/13/17 Previous Rx's Medication Instructions Recorded Furosemide [Lasix] 40 mg PO DAILY 30 Days #30 tab 03/27/17 Acetaminophen Tab [Tylenol] 650 mg PO Q6HR PRN tab 07/30/17 Pantoprazole [Protonix] 40 mg PO DAILY 30 Days #30 07/30/17 tablet. Allergies Allergy/AdvReac Type Severity Reaction Status Date / Time Penicillins Allergy Rash/Hives Verified 11/13/17 14:21 Sulfa (Sulfonamide Allergy Unknown Verified 11/13/17 14:21 Antibiotics) Childhood adhesive tape AdvReac PEELS SKIN Verified 11/13/17 14:21 Review of Systems ROS Statement: Those systems with pertinent positive or pertinent negative responses have been documented in the HPI. ROS Other: All systems not noted in ROS Statement are negative. 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 History of Any Multi-Drug Resistant Organisms: None Reported Past Surgical History: Section, Cholecystectomy Additional Past Surgical History / Comment(s): jaw and pelvis surgery from accident many years ago, L cataract removed. Past Anesthesia/Blood Transfusion Reactions: Postoperative Nausea & Vomiting ( PONV) Additional Past Anesthesia/Blood Transfusion Reaction / Comment(s): Pt believes she received blood after her accident many yrs ago without reaction. Past Psychological History: Anxiety, Depression Smoking Status: Never smoker Past Alcohol Use History: None Reported Past Drug Use History: None Reported - Past Family History Mother Family Medical History: CVA/TIA Additional Family Medical History / Comment(s): Mother of a CVA at the age of 92 yrs. She also had a bowel disorder Father Family Medical History: Diabetes Mellitus, Myocardial Infarction ([place]) Additional Family Medical History / Comment(s): Father of a VT at the age of 88yrs. General Exam Limitations: no limitations General appearance: alert, in no apparent distress, in distress Head exam: Present: atraumatic, normocephalic, normal inspection Eye exam: Present: normal appearance, PERRL, EOMI. Absent: scleral icterus, conjunctival injection, periorbital swelling ENT exam: Present: normal exam, mucous membranes moist Neck exam: Present: normal inspection. Absent: tenderness, meningismus, lymphadenopathy Respiratory exam: Present: normal lung sounds bilaterally. Absent: respiratory distress, wheezes, rales, rhonchi, stridor Cardiovascular Exam: Present: tachycardia, irregular rhythm, normal heart sounds. Absent: systolic murmur, diastolic murmur, rubs, gallop, clicks GI/Abdominal exam: Present: soft, normal bowel sounds. Absent: distended, tenderness, guarding, rebound, rigid Extremities exam: Present: normal inspection, full ROM, normal capillary refill. Absent: tenderness, pedal edema, joint swelling, calf tenderness Back exam: Present: normal inspection Neurological exam: Present: alert, oriented X3, CN II-XII intact Psychiatric exam: Present: normal affect, normal mood Skin exam: Present: warm, dry, intact, normal color. Absent: rash Course Vital Signs 11/13/17 11/13/17 11/13/17 13:21 13:33 14:30 Temperature 99.0 F Pulse Rate 124 H 141 H 130 H Respiratory 18 18 18 Rate Blood Pressure 163/119 159/80 153/67 O2 Sat by Pulse 100 99 97 Oximetry - Reevaluation(s) Reevaluation #1: 11/13/17 15:42 Patient remains without complaint or family states patient still feels weak, is also noncompliant EKG Findings - EKG Comments: EKG Findings:: EKG shows A. fib RVR rate 125, QRS 90, QTC 562 Medical Decision Making - Medical Decision Making 82 female the ER for evaluation of dehydration A. dread with RVR, will admit for medication control rate control and continued evaluation. - Lab Data Result diagrams: 11/13/17 13:32 11/13/17 13:32 Lab Results 11/13/17 11/13/17 11/13/17 Range/Units 13:32 13:32 13:32 WBC 10.9 H (3.8-10.6) k/uL RBC 4.01 (3.80-5.40) m/uL Hgb 11.9 (11.4-16.0) gm/dL Hct 37.0 (34.0-46.0) % MCV 92.1 (80.0-100.0) fL MCH 29.8 (25.0-35.0) pg MCHC 32.3 (31.0-37.0) g/dL RDW 14.7 (11.5-15.5) % Plt Count 212 (150-450) k/uL Neutrophils % 82 % Lymphocytes % 10 % Monocytes % 6 % Eosinophils % 1 % Basophils % 0 % Neutrophils # 8.9 H (1.3-7.7) k/uL Lymphocytes # 1.1 (1.0-4.8) k/uL Monocytes # 0.7 (0-1.0) k/uL Eosinophils # 0.1 (0-0.7) k/uL Basophils # 0.0 (0-0.2) k/uL PT (9.0-12.0) sec INR (<1.2) APTT (22.0-30.0) sec Sodium 146 H (137-145) mmol/L Potassium 3.3 L (3.5-5.1) mmol/L Chloride 104 (98-107) mmol/L Carbon Dioxide 25 (22-30) mmol/L Anion Gap 17 mmol/L BUN 12 (7-17) mg/dL Creatinine 0.83 (0.52-1.04) mg/dL Est GFR (CKD-EPI)AfAm 77 (>60 ml/min/1.73 sqM) Est GFR (CKD-EPI)NonAf 67 (>60 ml/min/1.73 sqM) Glucose 117 H (74-99) mg/dL Plasma Lactic Acid Rahul (0.7-2.0) mmol/L Calcium 9.5 (8.4-10.2) mg/dL Phosphorus 3.3 (2.5-4.5) mg/dL Magnesium 2.1 (1.6-2.3) mg/dL Total Bilirubin 1.0 (0.2-1.3) mg/dL AST 26 (14-36) U/L ALT 22 (9-52) U/L Alkaline Phosphatase 89 (38-126) U/L Total Creatine Kinase 83 (30-135) U/L CK-MB (CK-2) 1.3 (0.0-2.4) ng/mL CK-MB (CK-2) Rel Index 1.6 Troponin I <0.012 (0.000-0.034) ng/mL Total Protein 6.9 (6.3-8.2) g/dL Albumin 4.1 (3.5-5.0) g/dL TSH 24.100 H (0.465-4.680) mIU/L 11/13/17 11/13/17 Range/Units 13:32 13:32 WBC (3.8-10.6) k/uL RBC (3.80-5.40) m/uL Hgb (11.4-16.0) gm/dL Hct (34.0-46.0) % MCV (80.0-100.0) fL MCH (25.0-35.0) pg MCHC (31.0-37.0) g/dL RDW (11.5-15.5) % Plt Count (150-450) k/uL Neutrophils % % Lymphocytes % % Monocytes % % Eosinophils % % Basophils % % Neutrophils # (1.3-7.7) k/uL Lymphocytes # (1.0-4.8) k/uL Monocytes # (0-1.0) k/uL Eosinophils # (0-0.7) k/uL Basophils # (0-0.2) k/uL PT 11.0 (9.0-12.0) sec INR 1.1 (<1.2) APTT 21.6 L (22.0-30.0) sec Sodium (137-145) mmol/L Potassium (3.5-5.1) mmol/L Chloride (98-107) mmol/L Carbon Dioxide (22-30) mmol/L Anion Gap mmol/L BUN (7-17) mg/dL Creatinine (0.52-1.04) mg/dL Est GFR (CKD-EPI)AfAm (>60 ml/min/1.73 sqM) Est GFR (CKD-EPI)NonAf (>60 ml/min/1.73 sqM) Glucose (74-99) mg/dL Plasma Lactic Acid Rhaul 2.2 H* (0.7-2.0) mmol/L Calcium (8.4-10.2) mg/dL Phosphorus (2.5-4.5) mg/dL Magnesium (1.6-2.3) mg/dL Total Bilirubin (0.2-1.3) mg/dL AST (14-36) U/L ALT (9-52) U/L Alkaline Phosphatase (38-126) U/L Total Creatine Kinase (30-135) U/L CK-MB (CK-2) (0.0-2.4) ng/mL CK-MB (CK-2) Rel Index Troponin I (0.000-0.034) ng/mL Total Protein (6.3-8.2) g/dL Albumin (3.5-5.0) g/dL TSH (0.465-4.680) mIU/L Critical Care Time Critical Care Time: Yes Total Critical Care Time: 31 Disposition Clinical Impression: Atrial fibrillation with RVR, Weakness, Dehydration Disposition: ADMITTED IP TO THIS HOSP Condition: Fair Is patient prescribed a controlled substance at d/c from ED?: No Referrals: Emile Gregory MD [Primary Care Provider] - 1-2 days
[2017-11-13] MEDS ORDERED: DILTIAZEM 50 MG in SODIUM CHLORIDE 0.9% 40 ML IV ONE (13:45)
[2017-11-13 14:17] LABS: Basophils % (A) 0 %; Eosinophils # (A) 0.1 k/uL (0-0.7); Eosinophils % (A) 1 %; HGB 11.9 gm/dL (11.4-16.0); Lymphocytes # (A) 1.1 k/uL (1.0-4.8); Lymphocytes % (A) 10 %; MCH 29.8 pg (25.0-35.0); MCHC 32.3 g/dL (31.0-37.0); MCV 92.1 fL (80.0-100.0); Mean Platelet Volume 7.9; Monocytes # (A) 0.7 k/uL (0-1.0); Monocytes % (A) 6 %; Neutrophils # (A) 8.9 k/uL (1.3-7.7); Neutrophils % (A) 82 %; Platelet Count 212 k/uL (150-450); RBC 4.01 m/uL (3.80-5.40); RDW 14.7 % (11.5-15.5); WBC 10.9 k/uL (3.8-10.6)
[2017-11-13 14:32] LABS: Albumin 4.1 g/dL (3.5-5.0); Calcium 9.5 mg/dL (8.4-10.2); Magnesium 2.1 mg/dL (1.6-2.3); Phosphorus 3.3 mg/dL (2.5-4.5); Potassium 3.3 mmol/L (3.5-5.1); Total Protein 6.9 g/dL (6.3-8.2)
[2017-11-13 14:41] LABS: INR 1.1 (<1.2)
[2017-11-13 14:51] LABS: Partial Thromboplastin Time 21.6 sec (22.0-30.0)
[2017-11-13 14:52] LABS: Creatine Kinase 83 U/L (30-135)
[2017-11-13 15:03] LABS: Creatine Kinase MB 1.3 ng/mL (0.0-2.4); Troponin I <0.012 ng/mL (0.000-0.034)
[2017-11-13] MEDS ORDERED: NITROGLYCERIN SL TABS 0.4 MG TAB SUBLINGUAL PRN (15:32)
[2017-11-13] MEDS ORDERED: POTASSIUM BICARBONATE/CIT AC 20 MEQ TABLET.EFF PO ONE (15:33)
[2017-11-13] MEDS: POTASSIUM CHLORIDE 20 MEQ in WATER FOR INJECTION 1 100ML.BAG IVPB SCH ×2 (16:36→19:07)
[2017-11-13 19:28] LABS: Creatine Kinase MB 1.1 ng/mL (0.0-2.4); Troponin I 0.016 ng/mL (0.000-0.034)
[2017-11-13] MEDS ORDERED: WARFARIN 10 MG TAB PO ONE (20:45)
[2017-11-13] MEDS: METOPROLOL TARTRATE 50 MG TAB PO SCH (20:46)
[2017-11-14 01:36] LABS: Creatine Kinase 77 U/L (30-135)
[2017-11-14 01:47] LABS: Creatine Kinase MB 0.9 ng/mL (0.0-2.4); Troponin I <0.012 ng/mL (0.000-0.034)
[2017-11-14 07:30] LABS: Calcium 9.1 mg/dL (8.4-10.2); Potassium 4.2 mmol/L (3.5-5.1)
[2017-11-14 08:26] LABS: INR 1.2 (<1.2); Prothrombin Time 11.5 sec (9.0-12.0)
[2017-11-14] MEDS: LEVOTHYROXINE 100 MCG TAB PO SCH (08:38)
[2017-11-14] MEDS: METOPROLOL TARTRATE 50 MG TAB PO SCH ×2 (08:45→20:32)
[2017-11-14] MEDS ORDERED: ASPIRIN 325 MG TAB PO SCH (09:00)
--- NOTE | 2017-11-14 10:08 | P.CRDCN ---
History of Present Illness Consult date: 11/14/17 Requesting physician: Emile Gregory Consult reason: atrial fibrillation Chief complaint: Weakness History of present illness: This is a pleasant 82-year-old female who follows with Dr. Gillespie in the office. She has a known history of hypertension, hyperlipidemia, moderate coronary artery disease by recent cath performed in September of this year which revealed an intermediate lesion involving the proximal LAD of approximately 50% , mild gradient noted across the aortic valve at that time, history also of chronic persistent atrial fibrillation, prior CVA, GERD, psoriasis. Patient presents to the hospital on this occasion with symptoms of weakness. She states that her Lasix at an extremely weak, she was sitting in a chair for which she thought there was a foot rest,, therefore she leaned forward, and ultimately slid down onto the floor. She states that her legs were too weak for her to stand up so she crawled across the floor to let the granddaughter in , EMS was also subsequently called. On EMS arrival patient was found to be in atrial fibrillation with rapid ventricular response. Patient also has just recently lost her and apparently for the past couple of weeks at least, has not been taking any of her medications at home. History was obtained from both the patient and to her daughters who are at bedside. EKG on arrival showed atrial fibrillation with rapid ventricular response. Blood pressure 136/ 78, 97% on room air, temperature 97.2. Laboratory data, white blood cell count 10.9, hemoglobin 11.9, platelet count 212. Sodium 144, potassium 4.2, BUN 11, creatinine 0.8. Potassium was 3.3 on admission, this has been replaced. Troponins 0.012, 0.016, 0.012. Magnesium 2.1, TSH 24.1. At the time of my examination this morning, patient denies any chest discomfort, no palpitations, no dizziness or difficulty in breathing. She is quite teary when she speaks about the recent loss of her . We will have social work see the patient regarding discharge planning. 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 History of Any Multi-Drug Resistant Organisms: None Reported Past Surgical History: Section, Cholecystectomy Additional Past Surgical History / Comment(s): jaw and pelvis surgery from accident many years ago, L cataract removed. Past Anesthesia/Blood Transfusion Reactions: Postoperative Nausea & Vomiting ( PONV) Additional Past Anesthesia/Blood Transfusion Reaction / Comment(s): Pt believes she received blood after her accident many yrs ago without reaction. Past Psychological History: Anxiety, Depression Additional Psychological History / Comment(s): Pt resides with her spouse. She normally walks independently but has a walker with wheels and a 4 pronged cane she uses prn. She no longer drives, her spouse drives. Smoking Status: Never smoker Past Alcohol Use History: None Reported Past Drug Use History: None Reported - Past Family History Mother Family Medical History: CVA/TIA Additional Family Medical History / Comment(s): Mother of a CVA at the age of 92 yrs. She also had a bowel disorder Father Family Medical History: Diabetes Mellitus, Myocardial Infarction ([place]) Additional Family Medical History / Comment(s): Father of a NC at the age of 88yrs. Medications and Allergies Home Medications Medication Instructions Recorded Confirmed Type Aspirin EC [Ecotrin Low Dose] 81 mg PO DAILY 03/11/16 11/13/17 History Furosemide [Lasix] 40 mg PO DAILY 30 Days #30 tab 03/27/17 11/13/17 Rx Simvastatin [Zocor] 20 mg PO HS 07/27/17 11/13/17 History Warfarin [Coumadin] 7.5 mg PO FR 07/27/17 11/13/17 History Acetaminophen Tab [Tylenol] 650 mg PO Q6HR PRN tab 07/30/17 11/13/17 Rx Pantoprazole [Protonix] 40 mg PO DAILY 30 Days #30 07/30/17 11/13/17 Rx tablet. Metoprolol Tartrate [Lopressor] 12.5 mg PO BID 11/13/17 11/13/17 History Warfarin Sodium [Coumadin] 5 mg PO SUMOTUWETHSA 11/13/17 11/13/17 History Allergies Allergy/AdvReac Type Severity Reaction Status Date / Time Penicillins Allergy Rash/Hives Verified 11/13/17 14:21 Sulfa (Sulfonamide Allergy Unknown Verified 11/13/17 14:21 Antibiotics) Childhood adhesive tape AdvReac PEELS SKIN Verified 11/13/17 14:21 Physical Exam Vitals: Vital Signs Temp Pulse Pulse Resp BP BP Pulse Ox 11/14/17 04:00 98.2 F 100 18 136/86 95 11/14/17 00:00 98.0 F 104 H 18 144/82 96 11/13/17 20:00 98.3 F 100 18 136/80 98 11/13/17 16:34 97.4 F L 99 18 154/98 11/13/17 15:45 97.4 F L 11/13/17 15:43 109 H 18 150/79 95 11/13/17 15:32 98 11/13/17 14:30 130 H 18 153/67 97 11/13/17 13:33 141 H 18 159/80 99 11/13/17 13:21 99.0 F 124 H 18 163/119 100 Intake and Output 11/13/17 11/14/17 11/14/17 22:59 06:59 14:59 Intake Total 100 0 Balance 100 0 Intake: Intake, IV Titration 100 Amount Potassium Chloride 20 meq 100 In Water For Injection 1 100ml.bag @ 50 mls/hr IVPB Q2HR [facility] Rx#: [id number] Oral 0 Other: Voiding Method Toilet Toilet Diaper Diaper # Voids 2 1 Weight 73.1 kg PHYSICAL EXAMINATION: GENERAL: This is an 82-year-old female in no apparent distress at the time of my examination. HEENT: Head is atraumatic, normocephalic. Pupils equal, round. Sclera anicteric. Conjunctiva are clear. Mucous membranes of the mouth are moist. Neck is supple. There is no elevated jugular venous pressure.] bruit is heard. HEART EXAMINATION: Heart S1 and S2 irregularly irregular a systolic murmur is heard CHEST EXAMINATION: Lungs are clear to auscultation and precussion. No chest wall tenderness is noted on palpation or with deep breathing. ABDOMEN: Soft, nontender. Bowel sounds are heard. No organomegaly noted. EXTREMITIES: 2+ peripheral pulses with no evidence of peripheral edema and no calf tenderness noted. Patient does have evidence of dryness of the skin, white scaly rash NEUROLOGIC patient is awake, alert and oriented -3. . Results 11/13/17 13:32 11/14/17 06:16 Cardiac Enzymes 0611/13/17 11/13/17 Range/Units 13:32 13:32 18:05 AST 26 (14-36) U/L CK-MB (CK-2) 1.3 1.1 (0.0-2.4) ng/mL Troponin I <0.012 0.016 (0.000-0.034) ng/mL 11/14/17 Range/Units 00:48 AST (14-36) U/L CK-MB (CK-2) 0.9 (0.0-2.4) ng/mL Troponin I <0.012 (0.000-0.034) ng/mL Coagulation 18 11/14/17 Range/Units 13:32 07:47 PT 11.0 11.5 (9.0-12.0) sec APTT 21.6 L (22.0-30.0) sec Lipids 11/14/17 Range/Units 06:16 Triglycerides 102 (<150) mg/dL Cholesterol 110 (<200) mg/dL HDL Cholesterol 40 (40-60) mg/dL CBC 11/13/17 Range/Units 13:32 WBC 10.9 H (3.8-10.6) k/uL RBC 4.01 (3.80-5.40) m/uL Hgb 11.9 (11.4-16.0) gm/dL Hct 37.0 (34.0-46.0) % Plt Count 212 (150-450) k/uL Comprehensive Metabolic Panel 11/13/17 11/14/17 Range/Units 13:32 06:16 Sodium 146 H 144 (137-145) mmol/L Potassium 3.3 L 4.2 (3.5-5.1) mmol/L Chloride 104 106 (98-107) mmol/L Carbon Dioxide 25 28 (22-30) mmol/L BUN 12 11 (7-17) mg/dL Creatinine 0.83 0.83 (0.52-1.04) mg/dL Glucose 117 H 85 (74-99) mg/dL Calcium 9.5 9.1 (8.4-10.2) mg/dL AST 26 (14-36) U/L ALT 22 (9-52) U/L Alkaline Phosphatase 89 (38-126) U/L Total Protein 6.9 (6.3-8.2) g/dL Albumin 4.1 (3.5-5.0) g/dL Current Medications Generic Name Dose Route Start Last Admin Trade Name Myronq PRN Reason Stop Dose Admin Aspirin 325 mg 11/14/17 09:00 11/14/17 08:47 Aspirin PO 325 mg DAILY MARYAM Administration Levothyroxine Sodium 100 mcg 11/14/17 06:30 11/14/17 08:38 Synthroid PO 100 mcg DAILY@0630 MARYAM Administration Metoprolol Tartrate 50 mg 11/13/17 21:00 11/14/17 08:45 Lopressor PO 50 mg BID MARYAM Administration Nitroglycerin 0.4 mg 11/13/17 15:32 Nitrostat SUBLINGUAL Q5M PRN Chest Pain Intake and Output 11/13/17 11/14/17 11/14/17 22:59 06:59 14:59 Intake Total 100 0 Balance 100 0 Intake: Intake, IV Titration 100 Amount Potassium Chloride 20 meq 100 In Water For Injection 1 100ml.bag @ 50 mls/hr IVPB Q2HR [facility] Rx#: [id number] Oral 0 Other: Voiding Method Toilet Toilet Diaper Diaper # Voids 2 1 Weight 73.1 kg 11/13/17 13:32 11/14/17 06:16 EKG Interpretations (text) EKG shows atrial fibrillation with rapid ventricular response, incomplete right bundle, nonspecific ST-T wave changes Assessment and Plan Plan: Assessment and plan #1 symptoms of weakness with fall, no syncope. #2 atrial fibrillation with rapid ventricular response, chronic persistent, on Coumadin for anticoagulation, subtherapeutic INR #3 prior CVA #4 GERD #5 hypertension #6 hyperlipidemia #7 psoriasis #8 hypothyroidism Plan We will obtain an echocardiogram with Doppler study. I also had a lengthy discussion with the patient and HER-2 daughters regarding initiating anticoagulation with one of the newer agents, we will check to see if the patient has coverage if so we will initiate Eliquis. Decrease aspirin 81 mg daily. Beta tom has been resumed with the dose increased to 50 mg twice a day which we need to monitor closely, patient has not taken her medications for over a week. She was also started on Synthroid. We will have social work to see the patient regarding discharge planning. Further recommendations to follow. DNP note has been reviewed, I agree with a documented findings and plan of care. Patient was seen and examined.
--- NOTE | 2017-11-14 11:09 | P.HPIM ---
History of Present Illness 82-year-old female was brought to the emergency room after fall from chair at home.. Patient has assistance with medication with family but is been negligent taking her medication. 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 History of Any Multi-Drug Resistant Organisms: None Reported Past Surgical History: Section, Cholecystectomy Additional Past Surgical History / Comment(s): jaw and pelvis surgery from accident many years ago, L cataract removed. Past Anesthesia/Blood Transfusion Reactions: Postoperative Nausea & Vomiting ( PONV) Additional Past Anesthesia/Blood Transfusion Reaction / Comment(s): Pt believes she received blood after her accident many yrs ago without reaction. Past Psychological History: Anxiety, Depression Additional Psychological History / Comment(s): Pt resides with her spouse. She normally walks independently but has a walker with wheels and a 4 pronged cane she uses prn. She no longer drives, her spouse drives. Smoking Status: Never smoker Past Alcohol Use History: None Reported Past Drug Use History: None Reported - Past Family History Mother Family Medical History: CVA/TIA Additional Family Medical History / Comment(s): Mother of a CVA at the age of 92 yrs. She also had a bowel disorder Father Family Medical History: Diabetes Mellitus, Myocardial Infarction (CA) Additional Family Medical History / Comment(s): Father of a CA at the age of 88yrs. Medications and Allergies Home Medications Medication Instructions Recorded Confirmed Type Aspirin EC [Ecotrin Low Dose] 81 mg PO DAILY 03/11/16 11/13/17 History Furosemide [Lasix] 40 mg PO DAILY 30 Days #30 tab 03/27/17 11/13/17 Rx Simvastatin [Zocor] 20 mg PO HS 07/27/17 11/13/17 History Warfarin [Coumadin] 7.5 mg PO FR 07/27/17 11/13/17 History Acetaminophen Tab [Tylenol] 650 mg PO Q6HR PRN tab 07/30/17 11/13/17 Rx Pantoprazole [Protonix] 40 mg PO DAILY 30 Days #30 07/30/17 11/13/17 Rx tablet. Metoprolol Tartrate [Lopressor] 12.5 mg PO BID 11/13/17 11/13/17 History Warfarin Sodium [Coumadin] 5 mg PO SUMOTUWETHSA 11/13/17 11/13/17 History Allergies Allergy/AdvReac Type Severity Reaction Status Date / Time Penicillins Allergy Rash/Hives Verified 11/13/17 14:21 Sulfa (Sulfonamide Allergy Unknown Verified 11/13/17 14:21 Antibiotics) Childhood adhesive tape AdvReac PEELS SKIN Verified 11/13/17 14:21 Physical Exam Vitals: Vital Signs Temp Pulse Pulse Resp BP BP BP 11/14/17 08:30 97.2 F L 98 18 136/78 138/109 11/14/17 04:00 98.2 F 100 18 136/86 11/14/17 00:00 98.0 F 104 H 18 144/82 11/13/17 20:00 98.3 F 100 18 136/80 11/13/17 16:34 97.4 F L 99 18 154/98 11/13/17 15:45 97.4 F L 11/13/17 15:43 109 H 18 150/79 11/13/17 15:32 11/13/17 14:30 130 H 18 153/67 11/13/17 13:33 141 H 18 159/80 11/13/17 13:21 99.0 F 124 H 18 163/119 Pulse Ox 11/14/17 08:30 97 11/14/17 04:00 95 11/14/17 00:00 96 11/13/17 20:00 98 11/13/17 16:34 11/13/17 15:45 11/13/17 15:43 95 11/13/17 15:32 98 11/13/17 14:30 97 11/13/17 13:33 99 11/13/17 13:21 100 Intake and Output 11/13/17 11/14/17 11/14/17 22:59 06:59 14:59 Intake Total 100 0 Balance 100 0 Intake: Intake, IV Titration 100 Amount Potassium Chloride 20 meq 100 In Water For Injection 1 100ml.bag @ 50 mls/hr IVPB Q2HR COUNT INCLUDES THE [facility] Rx#: [id number] Oral 0 Other: Voiding Method Toilet Toilet Diaper Diaper # Voids 2 1 1 Weight 73.1 kg - Constitutional General appearance: average body habitus - EENT Eyes: PERRLA Ears: bilateral: normal - Neck Neck: normal ROM - Cardiovascular Rhythm: irregularly irregular Abnormal Heart Sounds: systolic murmur - Gastrointestinal General gastrointestinal: soft - Integumentary Psoriasis to lower extremities - Neurologic Neurologic: CNII-XII intact - Musculoskeletal Musculoskeletal: generalized weakness - Psychiatric Psychiatric: A&O x's 3, appropriate affect, intact judgment & insight Results CBC & Chem 7: 11/13/17 13:32 11/14/17 06:16 Labs: Abnormal Lab Results - Last 24 Hours (Table) 11/13/17 11/13/17 11/13/17 Range/Units 13:32 13:32 13:32 WBC 10.9 H (3.8-10.6) k/uL Neutrophils # 8.9 H (1.3-7.7) k/uL INR (<1.2) APTT 21.6 L (22.0-30.0) sec Sodium 146 H (137-145) mmol/L Potassium 3.3 L (3.5-5.1) mmol/L Glucose 117 H (74-99) mg/dL Plasma Lactic Acid Rahul (0.7-2.0) mmol/L TSH 24.100 H (0.465-4.680) mIU/L 11/13/17 11/14/17 Range/Units 13:32 07:47 WBC (3.8-10.6) k/uL Neutrophils # (1.3-7.7) k/uL INR 1.2 H (<1.2) APTT (22.0-30.0) sec Sodium (137-145) mmol/L Potassium (3.5-5.1) mmol/L Glucose (74-99) mg/dL Plasma Lactic Acid Rahul 2.2 H* (0.7-2.0) mmol/L TSH (0.465-4.680) mIU/L Thrombosis Risk Factor Assmnt - Choose All That Apply Any of the Below Risk Factors Present?: No Other Risk Factors: No Other congenital or acquired thrombophilia - If yes, enter type in comment: No Thrombosis Risk Factor Assessment Level: Very Low Risk Assessment and Plan Plan: Assessment Atrial fibrillation with RVR Weakness with fall no syncope Dehydration Psoriasis to lower extremities Hypothyroidism not taking medication History of CVA/TIA GERD Hyperlipidemia Hypertension Hypokalemia corrected Plan shared services manager consult Consultation with cardiology regarding the atrial fibrillation
--- NOTE | 2017-11-14 11:19 | P.CRDCN ---
History of Present Illness History of present illness: Patient interviewed and examined him a please see full dictation minus practitioner No chest discomfort no undue shortness of breath but she was found on the floor. Denies syncope A. fib with RVR, not taking her medications recently, anticoagulation switched to a NOAC Plan is to restart medications and follow Dr. Oconnor Follow-up portable 102-3 weeks and then see Dr. 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 History of Any Multi-Drug Resistant Organisms: None Reported Past Surgical History: Section, Cholecystectomy Additional Past Surgical History / Comment(s): jaw and pelvis surgery from accident many years ago, L cataract removed. Past Anesthesia/Blood Transfusion Reactions: Postoperative Nausea & Vomiting ( PONV) Additional Past Anesthesia/Blood Transfusion Reaction / Comment(s): Pt believes she received blood after her accident many yrs ago without reaction. Past Psychological History: Anxiety, Depression Additional Psychological History / Comment(s): Pt resides with her spouse. She normally walks independently but has a walker with wheels and a 4 pronged cane she uses prn. She no longer drives, her spouse drives. Smoking Status: Never smoker Past Alcohol Use History: None Reported Past Drug Use History: None Reported - Past Family History Mother Family Medical History: CVA/TIA Additional Family Medical History / Comment(s): Mother of a CVA at the age of 92 yrs. She also had a bowel disorder Father Family Medical History: Diabetes Mellitus, Myocardial Infarction ([place]) Additional Family Medical History / Comment(s): Father of a AR at the age of 88yrs. Medications and Allergies Home Medications Medication Instructions Recorded Confirmed Type Aspirin EC [Ecotrin Low Dose] 81 mg PO DAILY 03/11/16 11/13/17 History Furosemide [Lasix] 40 mg PO DAILY 30 Days #30 tab 03/27/17 11/13/17 Rx Simvastatin [Zocor] 20 mg PO HS 07/27/17 11/13/17 History Warfarin [Coumadin] 7.5 mg PO FR 07/27/17 11/13/17 History Acetaminophen Tab [Tylenol] 650 mg PO Q6HR PRN tab 07/30/17 11/13/17 Rx Pantoprazole [Protonix] 40 mg PO DAILY 30 Days #30 07/30/17 11/13/17 Rx tablet. Metoprolol Tartrate [Lopressor] 12.5 mg PO BID 11/13/17 11/13/17 History Warfarin Sodium [Coumadin] 5 mg PO SUMOTUWETHSA 11/13/17 11/13/17 History Allergies Allergy/AdvReac Type Severity Reaction Status Date / Time Penicillins Allergy Rash/Hives Verified 11/13/17 14:21 Sulfa (Sulfonamide Allergy Unknown Verified 11/13/17 14:21 Antibiotics) Childhood adhesive tape AdvReac PEELS SKIN Verified 11/13/17 14:21 Physical Exam Vitals: Vital Signs Temp Pulse Pulse Resp BP BP BP 11/14/17 08:30 97.2 F L 98 18 136/78 138/109 11/14/17 04:00 98.2 F 100 18 136/86 11/14/17 00:00 98.0 F 104 H 18 144/82 11/13/17 20:00 98.3 F 100 18 136/80 11/13/17 16:34 97.4 F L 99 18 154/98 11/13/17 15:45 97.4 F L 11/13/17 15:43 109 H 18 150/79 11/13/17 15:32 11/13/17 14:30 130 H 18 153/67 11/13/17 13:33 141 H 18 159/80 11/13/17 13:21 99.0 F 124 H 18 163/119 Pulse Ox 11/14/17 08:30 97 11/14/17 04:00 95 11/14/17 00:00 96 11/13/17 20:00 98 11/13/17 16:34 11/13/17 15:45 11/13/17 15:43 95 11/13/17 15:32 98 11/13/17 14:30 97 11/13/17 13:33 99 11/13/17 13:21 100 Intake and Output 11/13/17 11/14/17 11/14/17 22:59 06:59 14:59 Intake Total 100 0 Balance 100 0 Intake: Intake, IV Titration 100 Amount Potassium Chloride 20 meq 100 In Water For Injection 1 100ml.bag @ 50 mls/hr IVPB Q2HR [facility] Rx#: [id number] Oral 0 Other: Voiding Method Toilet Toilet Diaper Diaper # Voids 2 1 1 Weight 73.1 kg Results 11/13/17 13:32 11/14/17 06:16 Cardiac Enzymes 11/13/17 11/13/17 11/13/17 Range/Units 13:32 13:32 18:05 AST 26 (14-36) U/L CK-MB (CK-2) 1.3 1.1 (0.0-2.4) ng/mL Troponin I <0.012 0.016 (0.000-0.034) ng/mL 11/14/17 Range/Units 00:48 AST (14-36) U/L CK-MB (CK-2) 0.9 (0.0-2.4) ng/mL Troponin I <0.012 (0.000-0.034) ng/mL Coagulation 11/13/17 11/14/17 Range/Units 13:32 07:47 PT 11.0 11.5 (9.0-12.0) sec APTT 21.6 L (22.0-30.0) sec Lipids 11/14/17 Range/Units 06:16 Triglycerides 102 (<150) mg/dL Cholesterol 110 (<200) mg/dL HDL Cholesterol 40 (40-60) mg/dL CBC 11/13/17 Range/Units 13:32 WBC 10.9 H (3.8-10.6) k/uL RBC 4.01 (3.80-5.40) m/uL Hgb 11.9 (11.4-16.0) gm/dL Hct 37.0 (34.0-46.0) % Plt Count 212 (150-450) k/uL Comprehensive Metabolic Panel 11/13/17 11/14/17 Range/Units 13:32 06:16 Sodium 146 H 144 (137-145) mmol/L Potassium 3.3 L 4.2 (3.5-5.1) mmol/L Chloride 104 106 (98-107) mmol/L Carbon Dioxide 25 28 (22-30) mmol/L BUN 12 11 (7-17) mg/dL Creatinine 0.83 0.83 (0.52-1.04) mg/dL Glucose 117 H 85 (74-99) mg/dL Calcium 9.5 9.1 (8.4-10.2) mg/dL AST 26 (14-36) U/L ALT 22 (9-52) U/L Alkaline Phosphatase 89 (38-126) U/L Total Protein 6.9 (6.3-8.2) g/dL Albumin 4.1 (3.5-5.0) g/dL Current Medications Generic Name Dose Route Start Last Admin Trade Name Freq PRN Reason Stop Dose Admin Apixaban 5 mg 11/14/17 10:15 Eliquis PO BID [facility] Aspirin 81 mg 11/15/17 09:00 Aspirin PO DAILY [facility] Levothyroxine Sodium 100 mcg 11/14/17 06:30 11/14/17 08:38 Synthroid PO 100 mcg DAILY@0630 [facility] Administration Metoprolol Tartrate 50 mg 11/13/17 21:00 11/14/17 08:45 Lopressor PO 50 mg BID [facility] Administration Nitroglycerin 0.4 mg 11/13/17 15:32 Nitrostat SUBLINGUAL Q5M PRN Chest Pain Intake and Output 11/13/17 11/14/17 11/14/17 22:59 06:59 14:59 Intake Total 100 0 Balance 100 0 Intake: Intake, IV Titration 100 Amount Potassium Chloride 20 meq 100 In Water For Injection 1 100ml.bag @ 50 mls/hr IVPB Q2HR [facility] Rx#: [id number] Oral 0 Other: Voiding Method Toilet Toilet Diaper Diaper # Voids 2 1 1 Weight 73.1 kg 11/13/17 13:32 11/14/17 06:16
[2017-11-14] MEDS: APIXABAN 5 MG TAB PO SCH ×2 (11:54→20:32)
[2017-11-14 13:59] VITALS: BMI 25.2
[2017-11-15] MEDS: LEVOTHYROXINE 100 MCG TAB PO SCH (05:35)
[2017-11-15] MEDS ORDERED: ASPIRIN 81 MG PO SCH (09:00)
[2017-11-15] MEDS: METOPROLOL TARTRATE 50 MG TAB PO SCH (09:41)
[2017-11-15] MEDS: APIXABAN 5 MG TAB PO SCH (09:41)
--- NOTE | 2017-11-15 11:24 | P.DS ---
Providers Date of admission: 11/13/17 15:32 Expected date of discharge: 11/15/17 Attending physician: Emile Gregory Consults: 11/13/17 15:32 Consult Physician Urgent Consulting Provider: Wilfredo Izaguirre Consult Reason/Comments: afib Do you want consulting provider notified?: Yes Primary care physician: Emile Gregory [facility] Course: 82-year-old female was brought to the emergency room for EMS after fall from chair. Patient has been noncompliant with medications. Discussed with patient states that she will have help from her children to help organize her medications. Patient's to follow-up with family physician and cardiology Assessment Atrial fibrillation with RVR Weakness with fall no syncope Dehydration Psoriasis Hypothyroidism Hypokalemia corrected History of CVA TIA GERD Hyperlipidemia Hypertension Plan Follow-up with cardiology and family physician Dr. Emile Gregory Patient Condition at Discharge: Fair Plan - Discharge Summary Discharge Rx Participant: No New Discharge Prescriptions: No Action Aspirin EC [Ecotrin Low Dose] 81 mg PO DAILY Furosemide [Lasix] 40 mg PO DAILY 30 Days #30 tab Simvastatin [Zocor] 20 mg PO HS Warfarin [Coumadin] 7.5 mg PO FR Acetaminophen Tab [Tylenol] 650 mg PO Q6HR PRN tab PRN Reason: Mild Pain Or Fever > 100.5 Pantoprazole [Protonix] 40 mg PO DAILY 30 Days #30 tablet. Warfarin Sodium [Coumadin] 5 mg PO SUMOTUWETHSA Metoprolol Tartrate [Lopressor] 12.5 mg PO BID Discharge Medication List Aspirin EC [Ecotrin Low Dose] 81 mg PO DAILY 03/11/16 [History] Furosemide [Lasix] 40 mg PO DAILY 30 Days #30 tab 03/27/17 [Rx] Simvastatin [Zocor] 20 mg PO HS 07/27/17 [History] Warfarin [Coumadin] 7.5 mg PO FR 07/27/17 [History] Acetaminophen Tab [Tylenol] 650 mg PO Q6HR PRN tab 07/30/17 [Rx] Pantoprazole [Protonix] 40 mg PO DAILY 30 Days #30 tablet. 07/30/17 [Rx] Metoprolol Tartrate [Lopressor] 12.5 mg PO BID 11/13/17 [History] Warfarin Sodium [Coumadin] 5 mg PO SUMOTUWETHSA 11/13/17 [History] Follow up Appointment(s)/Referral(s): Emile Gregory MD [Primary Care Provider] - 11/21/17 11:30 am (Sunday) Xander Canales MD [STAFF PHYSICIAN] - 3 Weeks [facility], [NON-STAFF] - Patient Instructions/Handouts: A-fib (Atrial Fibrillation) (DC), Safe Use of Anticoagulants (DC) Activity/Diet/Wound Care/Special Instructions: [place] copay is $103/mo. Free month in [facility] pharmacy to machine operator hop picker at discharge and then free samples can be obtained from cardiology office.
--- NOTE | 2017-11-15 14:06 | P.PN ---
Subjective Progress Note Date: 11/15/17 This is a pleasant 82-year-old female who follows with Dr. Gillespie in the office. She has a known history of hypertension, hyperlipidemia, moderate coronary artery disease by recent cath performed in September of this year which revealed an intermediate lesion involving the proximal LAD of approximately 50% , mild gradient noted across the aortic valve at that time, history also of chronic persistent atrial fibrillation, prior CVA, GERD, psoriasis. Patient presents to the hospital on this occasion with symptoms of weakness. She states that her Lasix at an extremely weak, she was sitting in a chair for which she thought there was a foot rest,, therefore she leaned forward, and ultimately slid down onto the floor. She states that her legs were too weak for her to stand up so she crawled across the floor to let the granddaughter in , EMS was also subsequently called. On EMS arrival patient was found to be in atrial fibrillation with rapid ventricular response. Patient also has just recently lost her and apparently for the past couple of weeks at least, has not been taking any of her medications at home. History was obtained from both the patient and to her daughters who are at bedside. EKG on arrival showed atrial fibrillation with rapid ventricular response. Blood pressure 136/ 78, 97% on room air, temperature 97.2. Laboratory data, white blood cell count 10.9, hemoglobin 11.9, platelet count 212. Sodium 144, potassium 4.2, BUN 11, creatinine 0.8. Potassium was 3.3 on admission, this has been replaced. Troponins 0.012, 0.016, 0.012. Magnesium 2.1, TSH 24.1. At the time of my examination this morning, patient denies any chest discomfort, no palpitations, no dizziness or difficulty in breathing. She is quite teary when she speaks about the recent loss of her . We will have social work see the patient regarding discharge planning. 11/15/2017 Patient seen and examined this morning, feeling significantly better overall. Blood pressure 138/90 heart rate in the 80s to 90s, 96% on room air. No lab data today. From cardiology's perspective, the patient's Coumadin has been discontinued and she was initiated on Eliquis for anticoagulation. We will continue the metoprolol 50 mg by mouth twice a day, schedule the patient to follow-up with Dr. Gillespie in the office post discharge. Objective - Vital Signs Vital signs: Vital Signs Temp 97.4 F L 11/15/17 08:25 Pulse 84 11/15/17 08:25 Resp 18 11/15/17 08:25 BP 167/74 11/15/17 08:25 Pulse Ox 99 11/15/17 08:25 Intake & Output 11/14/17 11/15/17 11/15/17 18:59 06:59 18:59 Intake Total 335 180 Balance 335 180 Weight 73.1 kg 73.5 kg Intake: Oral 335 180 Other: Voiding Method Toilet Diaper # Voids 1 2 1 - Exam PHYSICAL EXAMINATION: GENERAL: This is an 82-year-old female in no apparent distress at the time of my examination. HEENT: Head is atraumatic, normocephalic. Pupils equal, round. Sclera anicteric. Conjunctiva are clear. Mucous membranes of the mouth are moist. Neck is supple. There is no elevated jugular venous pressure.] bruit is heard. HEART EXAMINATION: Heart S1 and S2 irregularly irregular a systolic murmur is heard CHEST EXAMINATION: Lungs are clear to auscultation and precussion. No chest wall tenderness is noted on palpation or with deep breathing. ABDOMEN: Soft, nontender. Bowel sounds are heard. No organomegaly noted. EXTREMITIES: 2+ peripheral pulses with no evidence of peripheral edema and no calf tenderness noted. Patient does have evidence of dryness of the skin, white scaly rash NEUROLOGIC patient is awake, alert and oriented -3. . - Labs CBC & Chem 7: 11/13/17 13:32 11/14/17 06:16 Assessment and Plan Plan: Assessment and plan #1 symptoms of weakness with fall, no syncope. #2 atrial fibrillation with rapid ventricular response, chronic persistent, on Coumadin for anticoagulation, subtherapeutic INR #3 prior CVA #4 GERD #5 hypertension #6 hyperlipidemia #7 psoriasis #8 hypothyroidism Plan From cardiology's perspective, patient may be able to be discharged home once cleared by primary. We will continue Eliquis 5 mg one tablet by mouth twice a day, aspirin 81 mg daily, and metoprolol tartrate 50 mg by mouth twice a day. DNP note has been reviewed, I agree with a documented findings and plan of care. Patient was seen and examined.
[2017-11-15 14:27] VITALS: BP 115/74; PULSE 101; TEMP 97
== END 2017-11-15 14:13 | disposition home health service (06) | DRG 310 ==
LOC: EC 13:19 → 6SEL 15:32
PROVIDERS: ADMIT Family Medicine; ATTEND Family Medicine
DX: I48.2 Chronic atrial fibrillation (principal); E87.6 Hypokalemia; F32.9 Major depressive disorder, single episode, unspecified; F41.9 Anxiety disorder, unspecified; I10 Essential (primary) hypertension; I25.10 Atherosclerotic heart disease of native coronary artery without angina pectoris; K21.9 Gastro-esophageal reflux disease without esophagitis; L40.9 Psoriasis, unspecified; R79.1 Abnormal coagulation profile; W07.XXXA Fall from chair, initial encounter; Y92.009 Unspecified place in unspecified non-institutional (private) residence as the place of occurrence of the external cause; Z79.01 Long term (current) use of anticoagulants; Z79.899 Other long term (current) drug therapy; I48.1 Persistent atrial fibrillation; E86.0 Dehydration; Z82.3 Family history of stroke; E03.9 Hypothyroidism, unspecified; E78.5 Hyperlipidemia, unspecified; Z82.49 Family history of ischemic heart disease and other diseases of the circulatory system; Z83.3 Family history of diabetes mellitus; Z86.73 Personal history of transient ischemic attack (TIA), and cerebral infarction without residual deficits; Z91.14 Patient's other noncompliance with medication regimen; Z88.0 Allergy status to penicillin; Z88.2 Allergy status to sulfonamides; Z88.8 Allergy status to other drugs, medicaments and biological substances; Z90.49 Acquired absence of other specified parts of digestive tract; Z98.42 Cataract extraction status, left eye; Z79.82 Long term (current) use of aspirin; Y63.6 Underdosing and nonadministration of necessary drug, medicament or biological substance
CPT/HCPCS: 36415; 80048; 80053; 80061; 82550; 82553; 83605; 83735; 84100; 84443; 84484; 85025; 85610; 85730; 93005; 96365; 96366; 99291

== ENCOUNTER → 2017-11-30 | Outpatient (CLI) | payer MEDICARE, OTHER ==
[2017-11-30 17:19] LABS: Basophils % (A) 1 %; Eosinophils # (A) 0.2 k/uL (0-0.7); Eosinophils % (A) 4 %; HCT 38.9 % (34.0-46.0); HGB 12.7 gm/dL (11.4-16.0); Lymphocytes # (A) 1.7 k/uL (1.0-4.8); Lymphocytes % (A) 30 %; MCH 30.1 pg (25.0-35.0); MCHC 32.7 g/dL (31.0-37.0); MCV 91.9 fL (80.0-100.0); Mean Platelet Volume 7.7; Monocytes # (A) 0.3 k/uL (0-1.0); Monocytes % (A) 5 %; Neutrophils # (A) 3.4 k/uL (1.3-7.7); Neutrophils % (A) 60 %; Platelet Count 201 k/uL (150-450); RBC 4.23 m/uL (3.80-5.40); RDW 14.3 % (11.5-15.5); WBC 5.7 k/uL (3.8-10.6)
[2017-12-01 02:02] LABS: Hepatitis B Surface AB- Quant 3.5 mIU/mL
== END | disposition home or self-care (01) ==
LOC: LABWHC1 16:26
PROVIDERS: ATTEND Nurse Practitioner Family
DX: L40.0 Psoriasis vulgaris (principal)
CPT/HCPCS: 36415; 82565; 84450; 84460; 85025; 86704; 86706; 87340

== ENCOUNTER 2018-01-15 15:39 | Inpatient (IN) | payer MEDICARE, OTHER ==
[2018-01-15] MEDS ORDERED: SODIUM CHLORIDE 0.9% 1,000 ML IV STA ×3 (15:53→17:08)
[2018-01-15 16:35] LABS: Basophils # (A) 0.1 k/uL (0-0.2); Basophils % (A) 0 %; Eosinophils # (A) 0.1 k/uL (0-0.7); Eosinophils % (A) 1 %; HCT 47.3 % (34.0-46.0); Lymphocytes # (A) 2.3 k/uL (1.0-4.8); Lymphocytes % (A) 18 %; Mean Platelet Volume 7.5; Monocytes # (A) 0.9 k/uL (0-1.0); Monocytes % (A) 7 %; Neutrophils # (A) 9.4 k/uL (1.3-7.7); Neutrophils % (A) 73 %; Platelet Count 330 k/uL (150-450); RBC 5.37 m/uL (3.80-5.40); RDW 14.8 % (11.5-15.5)
[2018-01-15 16:40] LABS: Calcium 10.7 mg/dL (8.4-10.2); INR 1.2 (<1.2); Magnesium 2.2 mg/dL (1.6-2.3); Partial Thromboplastin Time 23.8 sec (22.0-30.0); Phosphorus 5.5 mg/dL (2.5-4.5); Potassium 3.7 mmol/L (3.5-5.1); Prothrombin Time 11.4 sec (9.0-12.0); Total Bilirubin 1.3 mg/dL (0.2-1.3); Total Protein 8.4 g/dL (6.3-8.2)
--- NOTE | 2018-01-15 16:42 | ED ---
General Adult HPI - General Chief complaint: Fall Stated complaint: Fall Time Seen by Provider: 01/15/18 15:41 Source: EMS, RN notes reviewed, old records reviewed Mode of arrival: EMS Limitations: no limitations - History of Present Illness Initial comments: This is an 82-year-old female the ER for evaluation today. Patient presents today for evaluation status post fall with weakness and inability to get up after fall and inability to ambulate. Patient has no concerning medical history is on blood thinners. Patient did have Meals on Wheels dropped off at her house today she was unable to get up and into the door before EMS was called the patient was subsequently brought to the emergency room. Patient does not complain of any complaints or injury from fall but does complain of severe weakness and states she also fall last night was unable to get up. No recent change in medications. She denies any fevers no headache no chest pain or shortness of breath no abdominal pain no recent nausea vomiting or diarrhea - Related Data Home Medications Medication Instructions Recorded Confirmed Aspirin EC [Ecotrin Low Dose] 81 mg PO DAILY 03/11/16 01/15/18 Simvastatin [Zocor] 20 mg PO HS 07/27/17 01/15/18 Citalopram Hydrobromide [CeleXA] 20 mg PO DAILY 01/15/18 01/15/18 Furosemide [Lasix] 20 mg PO DAILY 01/15/18 01/15/18 Levothyroxine Sodium [Synthroid] 100 mcg PO DAILY 01/15/18 01/15/18 Previous Rx's Medication Instructions Recorded Furosemide [Lasix] 40 mg PO DAILY 30 Days #30 tab 03/27/17 Pantoprazole [Protonix] 40 mg PO DAILY 30 Days #30 07/30/17 tablet. Apixaban [Eliquis] 5 mg PO BID #60 tab 11/15/17 Metoprolol Tartrate [Lopressor] 50 mg PO BID #60 tab 11/15/17 Allergies Allergy/AdvReac Type Severity Reaction Status Date / Time Penicillins Allergy Rash/Hives Verified 01/15/18 16:17 Sulfa (Sulfonamide Allergy Unknown Verified 01/15/18 16:17 Antibiotics) Childhood adhesive tape AdvReac PEELS SKIN Verified 01/15/18 16:17 Review of Systems ROS Statement: Those systems with pertinent positive or pertinent negative responses have been documented in the HPI. ROS Other: All systems not noted in ROS Statement are negative. 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 History of Any Multi-Drug Resistant Organisms: None Reported Past Surgical History: Section, Cholecystectomy Additional Past Surgical History / Comment(s): jaw and pelvis surgery from accident many years ago, L cataract removed. Past Anesthesia/Blood Transfusion Reactions: Postoperative Nausea & Vomiting ( PONV) Additional Past Anesthesia/Blood Transfusion Reaction / Comment(s): Pt believes she received blood after her accident many yrs ago without reaction. Past Psychological History: Anxiety, Depression Smoking Status: Never smoker Past Alcohol Use History: None Reported Past Drug Use History: None Reported - Past Family History Mother Family Medical History: CVA/TIA Additional Family Medical History / Comment(s): Mother of a CVA at the age of 92 yrs. She also had a bowel disorder Father Family Medical History: Diabetes Mellitus, Myocardial Infarction (LA) Additional Family Medical History / Comment(s): Father of a LA at the age of 88yrs. General Exam Limitations: no limitations General appearance: alert, lethargic Head exam: Present: atraumatic, normocephalic, normal inspection Eye exam: Present: normal appearance, PERRL, EOMI. Absent: scleral icterus, conjunctival injection, periorbital swelling ENT exam: Present: normal exam, mucous membranes dry Neck exam: Present: normal inspection. Absent: tenderness, meningismus, lymphadenopathy Respiratory exam: Present: normal lung sounds bilaterally. Absent: respiratory distress, wheezes, rales, rhonchi, stridor Cardiovascular Exam: Present: normal rhythm, bradycardia, normal heart sounds. Absent: systolic murmur, diastolic murmur, rubs, gallop, clicks GI/Abdominal exam: Present: soft, normal bowel sounds. Absent: distended, tenderness, guarding, rebound, rigid Extremities exam: Present: normal inspection, full ROM, normal capillary refill. Absent: tenderness, pedal edema, joint swelling, calf tenderness Back exam: Present: normal inspection Neurological exam: Present: alert, oriented X3, CN II-XII intact Psychiatric exam: Present: normal affect, normal mood Skin exam: Present: warm, dry, intact, normal color. Absent: rash Course Vital Signs 01/15/18 15:44 Temperature 97.5 F L Pulse Rate 52 L Respiratory 18 Rate Blood Pressure 123/74 O2 Sat by Pulse 96 Oximetry - Reevaluation(s) Reevaluation #1: 01/15/18 17:44 Patient is severely weak despite IV hydration here in the ER, Reevaluation #2: 01/15/18 17:44 Spoke with family at length great concern over patient's activity level, inability to ambulate, EKG Findings - EKG Comments: EKG Findings:: EKG shows A. fib rate of 88, QRS 106, QTc 488 Medical Decision Making - Medical Decision Making 82-year-old female the ER with persistent falls and weakness significant dehydration and inability to ambulate after fall today. Patient does have new onset renal failure kidney injury secondary to dehydration will admit for rehydration and continued evaluation of lab values. PTOT - Lab Data Result diagrams: 01/15/18 16:00 01/15/18 16:00 Lab Results 01/15/18 01/15/18 01/15/18 Range/Units 16:00 16:00 16:00 WBC 13.0 H (3.8-10.6) k/uL RBC 5.37 (3.80-5.40) m/uL Hgb 16.1 H D (11.4-16.0) gm/dL Hct 47.3 H (34.0-46.0) % MCV 88.0 (80.0-100.0) fL MCH 30.0 (25.0-35.0) pg MCHC 34.0 (31.0-37.0) g/dL RDW 14.8 (11.5-15.5) % Plt Count 330 (150-450) k/uL Neutrophils % 73 % Lymphocytes % 18 % Monocytes % 7 % Eosinophils % 1 % Basophils % 0 % Neutrophils # 9.4 H (1.3-7.7) k/uL Lymphocytes # 2.3 (1.0-4.8) k/uL Monocytes # 0.9 (0-1.0) k/uL Eosinophils # 0.1 (0-0.7) k/uL Basophils # 0.1 (0-0.2) k/uL PT (9.0-12.0) sec INR (<1.2) APTT (22.0-30.0) sec Sodium 137 (137-145) mmol/L Potassium 3.7 (3.5-5.1) mmol/L Chloride 93 L (98-107) mmol/L Carbon Dioxide 25 (22-30) mmol/L Anion Gap 19 mmol/L BUN 57 H (7-17) mg/dL Creatinine 1.60 H (0.52-1.04) mg/dL Est GFR (CKD-EPI)AfAm 35 (>60 ml/min/1.73 sqM) Est GFR (CKD-EPI)NonAf 30 (>60 ml/min/1.73 sqM) Glucose 138 H (74-99) mg/dL Plasma Lactic Acid Rahul (0.7-2.0) mmol/L Calcium 10.7 H (8.4-10.2) mg/dL Phosphorus 5.5 H (2.5-4.5) mg/dL Magnesium 2.2 (1.6-2.3) mg/dL Total Bilirubin 1.3 (0.2-1.3) mg/dL AST 31 (14-36) U/L ALT 29 (9-52) U/L Alkaline Phosphatase 86 (38-126) U/L Total Creatine Kinase 28 L (30-135) U/L CK-MB (CK-2) 0.6 (0.0-2.4) ng/mL CK-MB (CK-2) Rel Index 2.1 Troponin I <0.012 (0.000-0.034) ng/mL Total Protein 8.4 H (6.3-8.2) g/dL Albumin 5.0 (3.5-5.0) g/dL TSH 15.200 H (0.465-4.680) mIU/L 01/15/18 01/15/18 Range/Units 16:00 16:00 WBC (3.8-10.6) k/uL RBC (3.80-5.40) m/uL Hgb (11.4-16.0) gm/dL Hct (34.0-46.0) % MCV (80.0-100.0) fL MCH (25.0-35.0) pg MCHC (31.0-37.0) g/dL RDW (11.5-15.5) % Plt Count (150-450) k/uL Neutrophils % % Lymphocytes % % Monocytes % % Eosinophils % % Basophils % % Neutrophils # (1.3-7.7) k/uL Lymphocytes # (1.0-4.8) k/uL Monocytes # (0-1.0) k/uL Eosinophils # (0-0.7) k/uL Basophils # (0-0.2) k/uL PT 11.4 (9.0-12.0) sec INR 1.2 H (<1.2) APTT 23.8 (22.0-30.0) sec Sodium (137-145) mmol/L Potassium (3.5-5.1) mmol/L Chloride (98-107) mmol/L Carbon Dioxide (22-30) mmol/L Anion Gap mmol/L BUN (7-17) mg/dL Creatinine (0.52-1.04) mg/dL Est GFR (CKD-EPI)AfAm (>60 ml/min/1.73 sqM) Est GFR (CKD-EPI)NonAf (>60 ml/min/1.73 sqM) Glucose (74-99) mg/dL Plasma Lactic Acid Rahul 2.4 H* (0.7-2.0) mmol/L Calcium (8.4-10.2) mg/dL Phosphorus (2.5-4.5) mg/dL Magnesium (1.6-2.3) mg/dL Total Bilirubin (0.2-1.3) mg/dL AST (14-36) U/L ALT (9-52) U/L Alkaline Phosphatase (38-126) U/L Total Creatine Kinase (30-135) U/L CK-MB (CK-2) (0.0-2.4) ng/mL CK-MB (CK-2) Rel Index Troponin I (0.000-0.034) ng/mL Total Protein (6.3-8.2) g/dL Albumin (3.5-5.0) g/dL TSH (0.465-4.680) mIU/L - Radiology Data Radiology results: report reviewed (CT brain C-spine chest x-ray and pelvis x- ray are negative for acute disease), image reviewed Disposition Clinical Impression: Weakness, Fall, Dehydration Disposition: ADMITTED IP TO THIS HOSP Condition: Fair Is patient prescribed a controlled substance at d/c from ED?: No Referrals: Emile Gregory MD [Primary Care Provider] - 1-2 days
[2018-01-15 16:46] LABS: HGB 16.1 gm/dL (11.4-16.0)
[2018-01-15 16:51] LABS: Creatine Kinase 28 U/L (30-135)
[2018-01-15 17:05] LABS: Creatine Kinase MB 0.6 ng/mL (0.0-2.4); Troponin I <0.012 ng/mL (0.000-0.034)
--- NOTE | 2018-01-15 17:10 | CT ---
EXAMINATION TYPE: CT brain linette soares DATE OF EXAM: 01/15/2018 COMPARISON: 07/27/2017 HISTORY: Fall last night and today. CT DLP: 1034.7 mGycm Automated exposure control for dose reduction was used. TECHNIQUE: CT scan of the head and cervical spine are performed without contrast. FINDINGS: There is cerebral cortical atrophy. There is a 4 cm area of hypodensity in the right post erior frontal lobe consistent with old cortical infarct. There is no mass effect nor midline shift. T here is no sign of intracranial hemorrhage. The calvarium is intact. There is straightening of the cervical vertebra. There is a few millimeter anterior subluxation of C4 in relation to C5. There is mild facet arthropathy. There is no compression fracture. The skull base is intact. IMPRESSION: Cerebral atrophy. Old right frontal lobe infarct. No acute intracranial abnormality. Brain appears un changed compared to old exam. Mild degenerative subluxation at C4-5. No fracture. Mild spondylotic changes.
--- NOTE | 2018-01-15 17:15 | XR ---
EXAMINATION TYPE: XR chest 2V DATE OF EXAM: 01/15/2018 COMPARISON: 07/27/2017 HISTORY: Hypertension TECHNIQUE: Frontal and lateral views of the chest are obtained. FINDINGS: Heart and mediastinum are normal. Lungs are clear. Diaphragm is normal. Bony thorax appear s intact. IMPRESSION: Normal chest. No adverse change compared to old exam
--- NOTE | 2018-01-15 17:17 | XR ---
EXAMINATION TYPE: XR pelvis AP view DATE OF EXAM: 01/15/2018 COMPARISON: NONE HISTORY: Fall. Pain. TECHNIQUE: Single view FINDINGS: The pelvic ring is intact. There is moderate narrowing of left hip joint space. I see no fr acture. Sacroiliac joints appear intact. IMPRESSION: Osteoarthritis left hip joint. No fracture seen.
[2018-01-15] MEDS ORDERED: ACETAMINOPHEN TAB 500 MG TAB PO PRN (20:37)
[2018-01-15] MEDS ORDERED: ALPRAZolam 0.25 MG TAB PO PRN (20:37)
[2018-01-15 20:45] LABS: Appearance,Urine Cloudy (Clear); Bacteria,Urine Few /hpf; Bilirubin,Urine Negative (Negative); Blood,Urine Trace (Negative); Color,Urine Yellow; Glucose,Urine (UA) Negative (Negative); Hyaline Casts,Urine 54 /lpf (0-2); Ketones,Urine Negative (Negative); Leukocyte Esterase,Urine Moderate (Negative); Mucus,Urine Rare /hpf; Nitrite,Urine Negative (Negative); PH, Urine 5.5 (5.0-8.0); Protein,Urine Negative (Negative); RBC,Urine 3 /hpf (0-5); Specific Gravity,Urine 1.012 (1.001-1.035); Squamous Epithelial Cell,Urine 1 /hpf (0-4); Urobilinogen,Urine <2.0 mg/dL (<2.0); WBC,Urine 26 /hpf (0-5)
--- NOTE | 2018-01-15 21:37 | HP ---
HISTORY AND PHYSICAL CHIEF COMPLAINTS: Fall and weakness and renal failure. HISTORY OF PRESENT ILLNESS: This 82-year-old woman with a past medical history of multiple medical problems, including CVA, GERD, hypertension, hyperlipidemia, history of hypothyroidism, atrial fibrillation with rapid ventricular response, history of anxiety and depression, being followed by Dr. Oconnor and Dr. Emile Gregory in the outpatient setting, is apparently by her living by herself. The patient was not feeling well over the past several days and the p.o. intake appears to be extremely limited, according to the family, and the patient fell down. Patient is unable to remember how long the patient was out and the Meals on Wheels found the patient on the ground apparently and the patient taken to [facility] and was admitted for further evaluation and treatment. There is no history of any fever, rigors, chills. No history of any headache, loss of consciousness. The creatinine found to be elevated at 1.3. Lactic acid also elevated at 2.4. TSH is 15.200. PAST MEDICAL HISTORY: History of CVA, TIA, GERD, hypertension, hyperlipidemia, history of atrial fibrillation with fast ventricular rate. MEDICATIONS PRIOR TO ADMISSION: Include: 1. Lasix 20 mg p.o. daily. 2. Zocor 20 mg at bedtime. 3. Protonix 40 mg daily. 4. Lopressor 50 mg b.i.d. 5. Synthroid 100 mcg p.o. daily. 6. Lasix 40 mg p.o. daily. 7. Celexa 20 mg p.o. daily. 8. Ecotrin 81 mg. 9. Eliquis 5 mg p.o. b.i.d. ALLERGIES: Are PENICILLIN, SULFA, ADHESIVE TAPE. FAMILY HISTORY: History of CVA, TIA in the family. SOCIAL HISTORY: No history of smoking. No history of alcohol intake. REVIEW OF SYSTEMS: ENT: Diminished hearing, diminished vision. CARDIOVASCULAR: No angina, palpitations. RESPIRATORY: No cough or hemoptysis. GI: No nausea or vomiting. : No dysuria. NERVOUS: As mentioned earlier. ALLERGY/IMMUNOLOGY: No asthma or hay fever. MUSCULOSKELETAL: As mentioned earlier. HEMATOLOGY/ONCOLOGY: No history of anemia. ENDOCRINE: No history of diabetes, hypothyroidism. CONSTITUTIONAL: As mentioned earlier. DERMATOLOGY: Negative. RHEUMATOLOGY: Negative. PSYCHIATRY: As mentioned earlier. PHYSICAL EXAMINATION: Alert and oriented x3. Pulse 59, blood pressure 130/93, respirations 18, temperature 97.4, pulse ox 98% on 2L. HEENT: Conjunctivae normal. Oral mucosa moist. NECK: No jugular venous distention. No carotid bruits. No lymph node enlargement. CARDIOVASCULAR: S1, S2 muffled. RESPIRATORY: Breath sounds diminished in the bases. No rhonchi. No crackles. ABDOMEN: Soft, nontender. No mass palpable. LEGS: No edema. No swelling. NERVOUS SYSTEM: Higher functions as mentioned earlier. Moves all 4 limbs. No focal motor or sensory deficits. LYMPHATIC: No lymphadenopathy in neck or axillae. SKIN: No ulcer, rash or bleeding. LABS: WBC 13, hemoglobin 16.1. Otherwise, creatinine 1.2. Lactic acid 2.4. ASSESSMENT: 1. Fall, possibly syncope secondary to dehydration and orthostatic hypotension. 2. Acute renal failure, possibly secondary dehydration, acute tubular necrosis. 3. Increased plasma lactic acid. 4. Increased TSH. 5. Increased WBC. 6. History atrial fibrillation. 7. History of cerebrovascular accident/transient ischemic attack. 8. Gastroesophageal reflux disease. 9. Hypertension. 10.Hyperlipidemia. 11.History of anxiety, depression. RECOMMENDATIONS AND DISCUSSION: In this 82-year-old woman who presented with multiple complex medical issues, will monitor the patient closely, continue the current medical management and symptomatic treatment. At this time, I recommend monitoring the patient closely and I would recommend slow hydration and orthostatic vitals, PT/OT evaluation. Will obtain cultures with the possibility of any infections, possible ECF rehab. The prognosis is guarded because of multiple complex medical issues as mentioned earlier. This patient requires more than 2 nights of hospital stay for evaluation and treatment of the above- mentioned multiple complex medical issues. I had a detailed discussion with the daughter, who understands and agrees and will closely follow with Social Work and case management team. MMODL / IJN: [id number] /
[2018-01-15] MEDS: APIXABAN 5 MG TAB PO SCH (22:03)
[2018-01-15] MEDS: ATORVASTATIN 10 MG TAB PO SCH (22:03)
[2018-01-15] MEDS: SODIUM CHLORIDE 0.9% 1,000 ML IV SCH (22:04)
[2018-01-16 03:21] LABS: T4, Free (Free Thyroxine) 1.74 ng/dL (0.78-2.19)
[2018-01-16] MEDS: LEVOTHYROXINE 100 MCG TAB PO SCH (05:14)
[2018-01-16 07:59] LABS: Basophils % (A) 0 %; Eosinophils # (A) 0.2 k/uL (0-0.7); Eosinophils % (A) 2 %; HCT 45.3 % (34.0-46.0); HGB 15.5 gm/dL (11.4-16.0); Lymphocytes # (A) 2.3 k/uL (1.0-4.8); Lymphocytes % (A) 22 %; MCH 30.7 pg (25.0-35.0); MCHC 34.3 g/dL (31.0-37.0); MCV 89.7 fL (80.0-100.0); Mean Platelet Volume 7.6; Monocytes # (A) 0.9 k/uL (0-1.0); Monocytes % (A) 8 %; Neutrophils # (A) 7.1 k/uL (1.3-7.7); Neutrophils % (A) 67 %; Platelet Count 226 k/uL (150-450); RBC 5.05 m/uL (3.80-5.40); RDW 14.4 % (11.5-15.5); WBC 10.6 k/uL (3.8-10.6)
[2018-01-16 08:22] LABS: Calcium 10.1 mg/dL (8.4-10.2); Potassium 3.2 mmol/L (3.5-5.1)
[2018-01-16] MEDS ORDERED: ENOXAPARIN 40 MG/0.4 ML SYRINGE SQ SCH (09:00)
[2018-01-16] MEDS: CITALOPRAM HYDROBROMIDE 20 MG TAB PO SCH (09:25)
[2018-01-16] MEDS: ASPIRIN 81 MG PO SCH (09:25)
[2018-01-16] MEDS: PANTOPRAZOLE 40 MG TABLET PO SCH (09:25)
[2018-01-16] MEDS: APIXABAN 5 MG TAB PO SCH ×2 (09:25→20:38)
[2018-01-16] MEDS: SODIUM CHLORIDE 0.9% 1,000 ML IV SCH (09:25)
--- NOTE | 2018-01-16 10:23 | P.CRDCN ---
History of Present Illness History of present illness: Mrs. Doss is a pleasant 82-year-old female past medical history significant for hypertension, dyslipidemia, chronic persistent atrial fibrillation on long-term anticoagulation, CVA, gastroesophageal reflux disease , aortic stenosis and coronary artery disease by catheterization August 2016 which revealed a lesion about 50% in the proximal LAD. We have been asked to see her in consultation for pre-syncope. She states yesterday she got up to answer her door and while walking across the room she became dizzy and fell to the floor. She felt weak and was unable to get up initially. She denies loss of consciousness. She denies chest pain, shortness of breath, palpitations, nausea , vomiting or diaphoresis. Similar episode happened also the night before with dizziness and fall to the floor. At the time of my exam she is seen sitting up in bed in no acute distress. She denies any further symptoms of dizziness since admission. EKG reveals atrial fibrillation with incomplete right bundle with controlled ventricular response. No acute abnormalities noted. Chest xray negative for an acute cardiopulmonary process. Laboratory data reviewed, WBC 10.6, hemoglobin 15.5, platelets 226, sodium 137, potassium 3.2, magnesium 2.2, creatinine 1.6 on admission 1.29 today, lactic acid 2.4, TSH 15.2, free T3 2.7. Current cardiac medications include simvastatin 20 mg daily, lasix 20 mg daily, lopressor 50 mg BID, eliquis 5 mg BID, aspirin 81 mg daily. Review of Systems At the time of my exam: CONSTITUTIONAL: Denies fever. Denies chills. EYES: Denies blurred vision. Denies vision changes. Denies eye pain. EARS, NOSE, MOUTH & THROAT: Denies headache. Denies sore throat. Denies ear pain. CARDIOVASCULAR: Denies chest pain. Denies shortness of breath. Denies orthopnea. Denies PND. Denies palpitations. RESPIRATORY: Denies cough. GASTROINTESTINAL: Denies abdominal pain. Denies diarrhea. Denies constipation. Denies nausea. Denies vomiting. MUSCULOSKELETAL: Denies myalgias. INTEGUMENTARY: Denies pruitis. Denies rash. NEUROLOGIC: Denies numbness. Denies tingling. Denies weakness. PSYCHIATRIC: Denies anxiety. Denies depression. ENDOCRINE: Denies fatigue. Denies weight change. Denies polydipsia. Denies polyurina. GENITOURINARY: Denies burning, hematuria or urgency with micturation. HEMATOLOGIC: Denies history of anemia. Denies bleeding. 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 History of Any Multi-Drug Resistant Organisms: None Reported Past Surgical History: Section, Cholecystectomy Additional Past Surgical History / Comment(s): jaw and pelvis surgery from accident many years ago, L cataract removed. Past Anesthesia/Blood Transfusion Reactions: Postoperative Nausea & Vomiting ( PONV) Additional Past Anesthesia/Blood Transfusion Reaction / Comment(s): Pt believes she received blood after her accident many yrs ago without reaction. Smoking Status: Never smoker - Past Family History Mother Family Medical History: CVA/TIA Additional Family Medical History / Comment(s): Mother of a CVA at the age of 92 yrs. She also had a bowel disorder Father Family Medical History: Diabetes Mellitus, Myocardial Infarction (ME) Additional Family Medical History / Comment(s): Father of a ME at the age of 88yrs. Medications and Allergies Home Medications Medication Instructions Recorded Confirmed Type Aspirin EC [Ecotrin Low Dose] 81 mg PO DAILY 03/11/16 01/15/18 History Furosemide [Lasix] 40 mg PO DAILY 30 Days #30 tab 03/27/17 01/15/18 Rx Simvastatin [Zocor] 20 mg PO HS 07/27/17 01/15/18 History Pantoprazole [Protonix] 40 mg PO DAILY 30 Days #30 07/30/17 01/15/18 Rx tablet. Apixaban [Eliquis] 5 mg PO BID #60 tab 11/15/17 01/15/18 Rx Metoprolol Tartrate [Lopressor] 50 mg PO BID #60 tab 11/15/17 01/15/18 Rx Citalopram Hydrobromide [CeleXA] 20 mg PO DAILY 01/15/18 01/15/18 History Furosemide [Lasix] 20 mg PO DAILY 01/15/18 01/15/18 History Levothyroxine Sodium [Synthroid] 100 mcg PO DAILY 01/15/18 01/15/18 History Allergies Allergy/AdvReac Type Severity Reaction Status Date / Time Penicillins Allergy Rash/Hives Verified 01/15/18 16:17 Sulfa (Sulfonamide Allergy Unknown Verified 01/15/18 16:17 Antibiotics) Childhood adhesive tape AdvReac PEELS SKIN Verified 01/15/18 16:17 Physical Exam Vitals: Vital Signs Temp Pulse Pulse Pulse Pulse Resp BP 01/16/18 07:20 96.1 F L 74 18 01/16/18 00:36 69 96 01/15/18 22:00 97.8 F 66 16 01/15/18 20:00 98.2 F 82 16 01/15/18 18:57 98.5 F 01/15/18 18:15 59 L 18 138/93 01/15/18 15:44 97.5 F L 52 L 18 123/74 BP BP BP Pulse Ox 01/16/18 07:20 140/86 100 01/16/18 00:36 109/59 119/65 96 01/15/18 22:00 112/69 98 01/15/18 20:00 161/78 99 01/15/18 18:57 01/15/18 18:15 98 01/15/18 15:44 96 Intake and Output 01/15/18 01/16/18 01/16/18 22:59 06:59 14:59 Intake Total 250 400 Balance 250 400 Intake: Intake, IV Titration 250 400 Amount Sodium Chloride 0.9% 1, 200 000 ml @ 100 mls/hr IV . Q10H STA Rx#:[id number] Sodium Chloride 0.9% 1, 50 400 000 ml @ 50 mls/hr IV . Q20H MARYAM Rx#:[id number] Other: Voiding Method Bedpan Diaper Incontinent # Voids 1 Weight 76.204 kg Blood pressure 140/86 heart rate 74 afebrile maintaining oxygen saturation on room air GENERAL: This is a 82-year-old female in no apparent distress at the time of my examination. HEENT: Head is atraumatic, normocephalic. Pupils are equal, round. Sclerae anicteric. Conjunctivae are clear. Mucous membranes of the mouth are moist. Neck is supple. There is no jugular venous distention. No carotid bruit is heard. LUNGS: Clear to auscultation no wheezes, rales or rhonchi. No chest wall tenderness is noted on palpation or with deep breathing. HEART: Irregular rate and rhythm with systolic ejection murmur at the base, no rubs or gallops. S1 and S2 heard. ABDOMEN: Soft, nontender. Bowel sounds are heard. No organomegaly noted. EXTREMITIES: Trace b/l lower extremity edema and no calf tenderness noted. VASCULAR: Radial and dorsalis pedis pulses palpated, no evidence of clubbing. NEUROLOGIC: Patient is awake, alert and oriented x3. Results 01/16/18 07:44 01/16/18 07:44 Cardiac Enzymes 01/15/18 01/15/18 Range/Units 16:00 16:00 AST 31 (14-36) U/L CK-MB (CK-2) 0.6 (0.0-2.4) ng/mL Troponin I <0.012 (0.000-0.034) ng/mL Coagulation 01/15/18 Range/Units 16:00 PT 11.4 (9.0-12.0) sec APTT 23.8 (22.0-30.0) sec CBC 01/15/18 01/16/18 Range/Units 16:00 07:44 WBC 13.0 H 10.6 (3.8-10.6) k/uL RBC 5.37 5.05 (3.80-5.40) m/uL Hgb 16.1 H D 15.5 (11.4-16.0) gm/dL Hct 47.3 H 45.3 (34.0-46.0) % Plt Count 330 226 (150-450) k/uL Comprehensive Metabolic Panel 01/15/18 01/16/18 Range/Units 16:00 07:44 Sodium 137 138 (137-145) mmol/L Potassium 3.7 3.2 L (3.5-5.1) mmol/L Chloride 93 L 96 L (98-107) mmol/L Carbon Dioxide 25 30 (22-30) mmol/L BUN 57 H 53 H (7-17) mg/dL Creatinine 1.60 H 1.29 H (0.52-1.04) mg/dL Glucose 138 H 121 H (74-99) mg/dL Calcium 10.7 H 10.1 (8.4-10.2) mg/dL AST 31 (14-36) U/L ALT 29 (9-52) U/L Alkaline Phosphatase 86 (38-126) U/L Total Protein 8.4 H (6.3-8.2) g/dL Albumin 5.0 (3.5-5.0) g/dL Current Medications Generic Name Dose Route Start Last Admin Trade Name Freq PRN Reason Stop Dose Admin Acetaminophen 500 mg 01/15/18 20:37 Tylenol Tab PO Q6HR PRN Fever and/ or Mild Pain Alprazolam 0.25 mg 01/15/18 20:37 Xanax PO TID PRN Anxiety Apixaban 5 mg 01/15/18 21:00 01/15/18 22:03 Eliquis PO 5 mg BID MARYAM Administration Aspirin 81 mg 01/16/18 09:00 Aspirin PO DAILY MARYAM Atorvastatin Calcium 10 mg 01/15/18 21:00 01/15/18 22:03 Lipitor PO 10 mg HS MARYAM Administration Citalopram Hydrobromide 20 mg 01/16/18 09:00 Celexa PO DAILY MARYAM Sodium Chloride 1,000 mls @ 50 mls/hr 01/15/18 20:45 01/15/18 22:04 Saline 0.9% IV 50 mls/hr .Q20H MARYAM Administration Levothyroxine Sodium 100 mcg 01/16/18 06:30 01/16/18 05:14 Synthroid PO 100 mcg DAILY@0630 MARYAM Administration Pantoprazole Sodium 40 mg 01/16/18 07:30 Protonix PO AC-[id number] MARYAM Intake and Output 01/15/18 01/16/18 01/16/18 22:59 06:59 14:59 Intake Total 250 400 Balance 250 400 Intake: Intake, IV Titration 250 400 Amount Sodium Chloride 0.9% 1, 200 000 ml @ 100 mls/hr IV . Q10H STA Rx#:[id number] Sodium Chloride 0.9% 1, 50 400 000 ml @ 50 mls/hr IV . Q20H MARYAM Rx#:[id number] Other: Voiding Method Bedpan Diaper Incontinent # Voids 1 Weight 76.204 kg 01/16/18 07:44 01/16/18 07:44 Assessment and Plan Assessment: ASSESSMENT Weakness and fall with dizziness, no LOC. Poor oral intake recently with evidence of dehydration. Chronic persistent atrial fibrillation on termite treater anticoagulation with controlled ventricular response. Hypertension Dyslipidemia Hypothyroidism History of non-compliance with medications in the past. PLAN 2D echocardiogram has been obtained and reviewed, no evidence of valvular abnormalities and normal LV systolic function. Rule out an acute coronary event by obtaining second troponin value. Ongoing telemetry monitoring for acute arrhythmia. Continue with gentle hydration. Resume beta blockers. Further recommendations to follow based on clinical course. Thank you kindly for this consultation. Nurse Practitioner note has been reviewed, I agree with a documented findings and plan of care. Patient was seen and examined.
--- NOTE | 2018-01-16 10:34 | ECHOF ---
Referral Reason:Stroke MEASUREMENTS -------- HEIGHT: 167.6 cm WEIGHT: 76.2 kg BP: IVSd: 1.5 cm (0.6 - 1.1) LVIDd: 3.2 cm (3.9 - 5.3) LVPWd: 1.6 cm (0.6 - 1.1) IVSs: 2.2 cm LVIDs: 2.3 cm LVPWs: 1.8 cm Ao Diam: 2.6 cm (2.0 - 3.7) AV Cusp: 1.5 cm (1.5 - 2.6) LA Diam: 3.8 cm (2.7 - 3.8) MV EXCURSION: 16.312 mm (> 18.000) MV EF SLOPE: 106 mm/s (70 - 150) EPSS: 0.9 cm MV E Bimal: 0.61 m/s MV DecT: 220 ms MV A Bimal: 0.34 m/s MV E/A Ratio: 1.79 RAP: 5.00 mmHg RVSP: 19.26 mmHg FINDINGS -------- Atrial fibrillation. This was a technically difficult study with suboptimal views. The left ventricular size is normal. There is moderate concentric left ventricular hypertrophy. O verall left ventricular systolic function is normal with, an EF between 55 - 60 %. The right ventricle is normal in size. The left atrium is normal in size. The right atrium is normal in size. Lumason used The aortic valve is trileaflet, and appears structurally normal. No aortic stenosis or regurgitation. The mitral valve leaflets are mildly thickened. There is trace mitral regurgitation. Trace tricuspid regurgitation present. The right ventricular systolic pressure, as measured by Dopp ler, is 19.26mmHg. Pulmonic valve appears structurally normal. The aortic root size is normal. The pericardium is normal. CONCLUSIONS -------- 1. Atrial fibrillation. 2. This was a technically difficult study with suboptimal views. 3. The left ventricular size is normal. 4. There is moderate concentric left ventricular hypertrophy. 5. Overall left ventricular systolic function is normal with, an EF between 55 - 60 %. 6. The right ventricle is normal in size. 7. The left atrium is normal in size. 8. The right atrium is normal in size. 9. Lumason used 10. The aortic valve is trileaflet, and appears structurally normal. No aortic stenosis or regurgitat ion. 11. The mitral valve leaflets are mildly thickened. 12. There is trace mitral regurgitation. 13. Trace tricuspid regurgitation present. 14. The right ventricular systolic pressure, as measured by Doppler, is 19.26mmHg. 15. Pulmonic valve appears structurally normal. 16. The aortic root size is normal. 17. The pericardium is normal. TEST ENG: Victoria Patel RDCS
[2018-01-16] MEDS ORDERED: Potassium Replacement Protocol 1 EACH MISC MISCELLANE PRN (10:44)
[2018-01-16] MEDS: METOPROLOL TARTRATE 50 MG TAB PO SCH ×2 (10:50→20:38)
[2018-01-16] MEDS: cefTRIAXone IN SWFI 1,000 MG/10 ML SYRINGE IVP SCH (11:08)
[2018-01-16] MEDS: POTASSIUM CHLORIDE ER 20 MEQ TAB.ER PO SCH ×4 (11:08→21:56)
--- NOTE | 2018-01-16 13:20 | US ---
EXAMINATION TYPE: US carotid duplex BILAT DATE OF EXAM: 01/16/2018 COMPARISON: NONE CLINICAL HISTORY: stroke. EXAM MEASUREMENTS: RIGHT: Peak Systolic Velocity (PSV) cm/sec ----- Right CCA: 50.1 ----- Right ICA: 76.3 ----- Right ECA: 41.7 ICA/CCA ratio: 1.5 RIGHT: End Diastole cm/sec ----- Right CCA: 9.0 ----- Right ICA: 13.4 ----- Right ECA: 0.0 LEFT: Peak Systolic Velocity (PSV) cm/sec ----- Left CCA: 49.2 ----- Left ICA: 78.4 ----- Left ECA: 50.6 ICA/CCA ratio: 1.6 LEFT: End Diastole cm/sec ----- Left CCA: 8.0 ----- Left ICA: 10.0 ----- Left ECA: 0.0 VERTEBRALS (direction of flow): Right Vertebral: Antegrade Left Vertebral: Antegrade Rhythm: Arrhythmia Mild atherosclerotic changes with no significant velocity elevations. Intimal thickening is evident diffusely. Doppler waveforms appear unremarkable. IMPRESSION: 1. Atheromatous plaquing without significant flow-limiting stenosis. Criteria for Assigning % of Stenosis / Diameter reduction (Estimation based on the indirect measurements of the internal carotid artery velocities (ICA PSV). 1. Normal (no stenosis)=ICA PSV < 125 cm/s: ratio < 2.0: ICA EDV<40 cm/s. 2. Less than 50% stenosis=ICA PSV < 125 cm/s: ratio < 2.0: ICA EDV<40 cm/s. 3. 50 to 69% stenosis=ICA PSV of 125 to 230 cm/s: ration 2.0 ? 4.0: ICA EDV 40-100 cm/s. 4. Greater than 70% stenosis to near occlusion= ICA PSV > 230 cm/s: ratio > 4.0: ICA EDV > 100 cm/s. 5. Near occlusion= ICA PSV velocities may be low or undetectable: variable ratio and ICA EDV. 6. Total occlusion=unable to detect flow.
--- NOTE | 2018-01-16 18:34 | PN ---
PROGRESS NOTE DATE OF SERVICE: 01/16/2018 This 82-year-old woman was admitted with fall and weakness. Still having orthostatic hypotension. The patient also had renal failure also. The plasma lactic acid elevated. Patient also found to have UTI, the patient started on empiric antibiotics. A 2D echo with Doppler was done today which showed ejection fraction 50-60%. Cardiology evaluation in progress also. PAST MEDICAL HISTORY: Reviewed. REVIEW OF SYSTEM: Cardiovascular: No angina or palpitations. Respiratory: As mentioned earlier. GI: As mentioned earlier. : No dysuria. Central nervous system: No numbness or weakness. CURRENT MEDICATIONS: Current medications are reviewed and include: 1. Tylenol 500 mg q.6h p.r.n. 2. Xanax 0.5 t.i.d. p.r.n. 3. Eliquis 5 mg b.i.d. 4. Aspirin 81 mg. 5. Lipitor 10 mg q.h.s. 6. Rocephin 1 g daily. 7. Celexa 20 mg p.o. daily. 8. Levothyroxine 100 mcg daily. 9. Lopressor 50 mg p.o. b.i.d. 10.KCL. 11.Protonix 40 mg daily. PHYSICAL EXAM: Patient is alert, oriented x3. Pulse 66. Blood pressure 99/66, respiration 18, temperature 97.7, pulse ox is still . Pulse ox 98% on room air. HEENT: Conjunctivae normal. Oral mucosa dry. NECK is no jugular venous distention. No carotid bruit. No lymph node enlargement. CARDIOVASCULAR SYSTEMS: S1, S2 muffled. RESPIRATIONS: Breath sounds diminished in the bases. Bilateral scattered rhonchi and crackles. ABDOMEN: Soft, nontender. No mass palpable. Legs are no edema. No swelling. Central nervous system: Diffusely weak. LAB INVESTIGATIONS: At this time shows CBC within normal limits. Sodium 130, potassium 3.2. Creatinine is 1.29. UA noted. ASSESSMENT: 1. Fall with possible syncope secondary to dehydration, orthostatic hypotension. 2. Acute renal failure possibly secondary to dehydration, acute tubular necrosis. 3. Increased plasma lactic acid. 4. Increased TSH. 5. Increased WBC. 6. History of atrial fibrillation. 7. History of cerebrovascular accident, transient ischemic attack. 8. Gastroesophageal reflux disease. 9. Hypertension. 10.Hyperlipidemia. 11.Anxiety, depression. RECOMMENDATIONS AND DISCUSSION: In this 82-year-old woman who presented with multiple complex medical issues, we will monitor the patient closely. Continue the current medications, management and symptomatic treatment. Otherwise, at this time, I recommend continue with current medications. Continue with symptomatic treatment. Otherwise, the patient will require inpatient stay for Guarded prognosis. Continue the antibiotics and continue IV fluids. PT/OT evaluation, possible ECF rehab. MMBHARGAV / AUDREYN: [id number] / AJIT
[2018-01-16] MEDS: ATORVASTATIN 10 MG TAB PO SCH (20:38)
[2018-01-17] MEDS: POTASSIUM CHLORIDE ER 20 MEQ TAB.ER PO SCH ×2 (00:52→01:56)
[2018-01-17] MEDS: SODIUM CHLORIDE 0.9% 1,000 ML IV SCH (01:01)
[2018-01-17] MEDS: LEVOTHYROXINE 100 MCG TAB PO SCH (05:42)
[2018-01-17 07:23] LABS: Basophils # (A) 0.1 k/uL (0-0.2); Basophils % (A) 1 %; Eosinophils # (A) 0.2 k/uL (0-0.7); Eosinophils % (A) 2 %; HCT 43.4 % (34.0-46.0); HGB 14.3 gm/dL (11.4-16.0); Lymphocytes # (A) 2.9 k/uL (1.0-4.8); Lymphocytes % (A) 30 %; MCH 30.1 pg (25.0-35.0); MCV 91.2 fL (80.0-100.0); Mean Platelet Volume 7.8; Monocytes # (A) 0.8 k/uL (0-1.0); Monocytes % (A) 8 %; Neutrophils # (A) 5.6 k/uL (1.3-7.7); Neutrophils % (A) 58 %; Platelet Count 218 k/uL (150-450); RBC 4.76 m/uL (3.80-5.40); RDW 14.8 % (11.5-15.5); WBC 9.7 k/uL (3.8-10.6)
[2018-01-17 07:44] LABS: Calcium 9.7 mg/dL (8.4-10.2); Potassium 4.6 mmol/L (3.5-5.1)
[2018-01-17] MEDS: APIXABAN 5 MG TAB PO SCH ×2 (08:30→19:59)
[2018-01-17] MEDS: CITALOPRAM HYDROBROMIDE 20 MG TAB PO SCH (08:30)
[2018-01-17] MEDS: PANTOPRAZOLE 40 MG TABLET PO SCH (08:30)
[2018-01-17] MEDS: cefTRIAXone IN SWFI 1,000 MG/10 ML SYRINGE IVP SCH (08:30)
[2018-01-17] MEDS: ASPIRIN 81 MG PO SCH (08:31)
[2018-01-17] MEDS: METOPROLOL TARTRATE 25 MG TAB PO SCH ×2 (08:57→19:59)
--- NOTE | 2018-01-17 13:06 | P.PN ---
Subjective Mrs. Doss seen and examined sitting up in the chair. Past medical history significant for hypertension, dyslipidemia, chronic persistent atrial fibrillation on long-term anticoagulation, CVA, aortic stenosis, gastroesophageal reflux disease and coronary artery disease. Telemetry tracings have been unremarkable for an acute arrhythmia. She is maintaining atrial fibrillation with controlled ventricular response. She denies any symptoms of dizziness. Blood pressure yesterday evening 88/53. Orthostatics obtained this morning reveal 130 systolic supine dropping down to 117 standing. She denies symptoms of dizziness with position changes. Echocardiogram obtained reveals preserved left ventricular systolic function with ejection fraction 55-60%. Carotid duplex reveals atheromatous plaquing without significant flow-limiting stenosis bilaterally. Laboratory data reviewed, hemoglobin 14.3, platelets 218, sodium 138, potassium 4.6, creatinine 1.07, cardiac enzymes negative 3. She is currently receiving antibiotics for urinary tract infection. Objective - Vital Signs Vital signs: Vital Signs Temp 97.6 F 01/17/18 07:45 Pulse 67 01/17/18 07:45 Resp 18 01/17/18 07:45 BP 130/69 01/17/18 07:45 Pulse Ox 100 01/17/18 07:45 Intake & Output 01/16/18 01/17/18 01/17/18 18:59 06:59 18:59 Intake Total 575 Balance 575 Intake: Intake, IV Titration 575 Amount Sodium Chloride 0.9% 1, 575 000 ml @ 50 mls/hr IV . Q20H [facility] Rx#:[id number] Other: Voiding Method Bedside Commode Bedside Commode Bedside Commode Diaper Incontinent # Voids 2 1 - Exam GENERAL: Well-appearing, well-nourished and in no acute distress. NECK: Supple without JVD or thyromegaly. LUNGS: Breath sounds clear to auscultation bilaterally. Respiration equal and unlabored. No wheezes, rales or rhonchi. HEART: Irregular rate and rhythm with systolic ejection murmur at the base, no rubs or gallops. S1 and S2 heard. EXTREMITIES: Trace bilateral lower extremity edema. No clubbing or cyanosis. Peripheral pulses intact. - Labs CBC & Chem 7: 01/17/18 06:29 01/17/18 06:29 Labs: Abnormal Lab Results - Last 24 Hours (Table) 01/16/18 01/17/18 Range/Units 19:03 06:29 Potassium 3.4 L (3.5-5.1) mmol/L BUN 38 H (7-17) mg/dL Creatinine 1.07 H (0.52-1.04) mg/dL Microbiology - Last 24 Hours (Table) 01/16/18 10:43 Blood Culture - Preliminary Blood No Growth after 24 hours 01/15/18 20:20 Urine Culture - Preliminary Urine,Voided Gram Neg Bacilli Assessment and Plan Assessment: ASSESSMENT Weakness and fall with dizziness, no LOC. Poor oral intake recently with evidence of dehydration. Chronic persistent atrial fibrillation on skilled nursing anticoagulation with controlled ventricular response. Hypertension Dyslipidemia Hypothyroidism History of non-compliance with medications in the past. PLAN An acute coronary event has been ruled out. No EKG evidence of ischemia and negative cardiac enzymes. Decrease metoprolol to 25 mg twice a day. Further recommendations to follow based upon clinical course. Continue to monitor for an additional 24 hours. Would benefit from outpatient event monitoring. Nurse Practitioner note has been reviewed, I agree with a documented findings and plan of care. Patient was seen and examined.
--- NOTE | 2018-01-17 18:15 | PN ---
PROGRESS NOTE DATE OF SERVICE: 01/17/2018 This 82-year-old woman who was admitted with syncope secondary to dehydration, orthostatic hypotension, still is being closely monitored at this time. The patient is still orthostatic hypertensive but showing 20.4 in systolic. There is no chest pain and no palpitations. EXAM: On exam, alert and oriented x3. Pulse is 74, blood pressure 115/64, on lying and 99/61 standing. HEENT: Conjunctivae normal. Oral mucosa moist. Neck is no jugular venous distention. No carotid bruit. CARDIOVASCULAR: S1, S2 muffled. RESPIRATORY: Breath sounds diminished in the bases. No rhonchi and no crackles. ABDOMEN: Soft, nontender. Legs are no edema. No swelling. CENTRAL NERVOUS SYSTEM: No focal deficits. LAB DATA: CBC within normal limits. Creatinine is 1.07. ASSESSMENT: 1. Fall with possible syncope secondary to dehydration and orthostatic hypotension. 2. Acute renal failure possibly secondary to dehydration and acute tubular necrosis. 3. Increased plasma lactic acid. 4. Increased THC. 5. Increased WBC. 6. History of atrial fibrillation. 7. History of cerebrovascular accident, transient ischemic attack. 8. Gastroesophageal reflux disease. 9. Hypertension. 10.Hyperlipidemia. 11.Anxiety and depression. RECOMMENDATION AND DISCUSSION: Recommend to continue current medications, management and symptomatic treatment. Otherwise, at this time, I recommend continue with current medications. Continue symptomatic treatment. I would recommend increase the dose of levothyroxine 125 mcg. Otherwise, continue the rest of medications. PT/OT evaluation. Guarded prognosis. Further recommendations to follow. MMODL / IJN: [id number] /
[2018-01-17] MEDS: ATORVASTATIN 10 MG TAB PO SCH (19:59)
[2018-01-18] MEDS: LEVOTHYROXINE 125 MCG TAB PO SCH (05:27)
[2018-01-18 07:31] LABS: Basophils % (A) 1 %; Eosinophils # (A) 0.2 k/uL (0-0.7); Eosinophils % (A) 2 %; HCT 37.7 % (34.0-46.0); HGB 12.5 gm/dL (11.4-16.0); Lymphocytes # (A) 2.2 k/uL (1.0-4.8); Lymphocytes % (A) 28 %; MCH 30.2 pg (25.0-35.0); MCHC 33.1 g/dL (31.0-37.0); MCV 91.3 fL (80.0-100.0); Mean Platelet Volume 7.7; Monocytes # (A) 0.5 k/uL (0-1.0); Monocytes % (A) 7 %; Neutrophils # (A) 4.8 k/uL (1.3-7.7); Neutrophils % (A) 61 %; Platelet Count 173 k/uL (150-450); RBC 4.13 m/uL (3.80-5.40); RDW 14.6 % (11.5-15.5); WBC 7.9 k/uL (3.8-10.6)
[2018-01-18 07:45] LABS: Potassium 4.1 mmol/L (3.5-5.1)
[2018-01-18] MEDS: APIXABAN 5 MG TAB PO SCH ×2 (08:22→21:07)
[2018-01-18] MEDS: METOPROLOL TARTRATE 25 MG TAB PO SCH ×2 (08:22→10:33)
[2018-01-18] MEDS: PANTOPRAZOLE 40 MG TABLET PO SCH (08:22)
[2018-01-18] MEDS: CITALOPRAM HYDROBROMIDE 20 MG TAB PO SCH (08:23)
[2018-01-18] MEDS: cefTRIAXone IN SWFI 1,000 MG/10 ML SYRINGE IVP SCH (08:23)
[2018-01-18] MEDS: ASPIRIN 81 MG PO SCH (08:23)
[2018-01-18] MEDS: SODIUM CHLORIDE 0.9% 1,000 ML IV SCH (10:33)
--- NOTE | 2018-01-18 11:18 | P.PN ---
Subjective Mrs. Doss seen and examined sitting up in bed eating breakfast. Past medical history significant for hypertension, dyslipidemia, chronic persistent atrial fibrillation on long-term anticoagulation, CVA, aortic stenosis, gastroesophageal reflux disease and coronary artery disease. Telemetry tracings have been unremarkable for an acute arrhythmia. She is maintaining atrial fibrillation with controlled ventricular response. She denies any symptoms of dizziness. Orthostatic blood pressures this morning show mild changes with position changes however she is asymptomatic. Blood pressure supine 127/81, sitting 126/69 and standing 97/61. Laboratory data reviewed, hemoglobin 12.5, platelets 173, sodium 139, potassium 4.1, creatinine 0.9. Objective - Vital Signs Vital signs: Vital Signs Temp 97.6 F 01/18/18 08:11 Pulse 76 01/18/18 08:11 Resp 16 01/18/18 08:11 BP 127/81 01/18/18 08:11 Pulse Ox 97 01/18/18 08:11 Intake & Output 01/17/18 01/18/18 01/18/18 18:59 06:59 18:59 Intake Total 400 240 Balance 400 240 Intake: Intake, IV Titration 400 Amount Sodium Chloride 0.9% 1, 400 000 ml @ 50 mls/hr IV . Q20H [facility] Rx#:[id number] Oral 240 Other: Voiding Method Bedside Commode Incontinent Diaper Incontinent # Voids 2 - Exam GENERAL: Well-appearing, well-nourished and in no acute distress. NECK: Supple without JVD or thyromegaly. LUNGS: Breath sounds clear to auscultation bilaterally. Respiration equal and unlabored. No wheezes, rales or rhonchi. HEART: Irregular rate and rhythm with systolic ejection murmur at the base, no rubs or gallops. S1 and S2 heard. EXTREMITIES: Trace bilateral lower extremity edema. No clubbing or cyanosis. Peripheral pulses intact. - Labs CBC & Chem 7: 01/18/18 06:37 01/18/18 06:37 Labs: Abnormal Lab Results - Last 24 Hours (Table) 01/18/18 Range/Units 06:37 BUN 23 H (7-17) mg/dL Microbiology - Last 24 Hours (Table) 01/15/18 20:20 Urine Culture - Final Urine,Voided Klebsiella pneumoniae 01/16/18 10:43 Blood Culture - Preliminary Blood No Growth after 24 hours Assessment and Plan Assessment: ASSESSMENT Weakness and fall with dizziness, no LOC. Poor oral intake recently with evidence of dehydration. Chronic persistent atrial fibrillation on snf anticoagulation with controlled ventricular response. Hypertension Dyslipidemia Hypothyroidism History of non-compliance with medications in the past. PLAN Decrease lopressor to 25 mg daily in the morning. Event monitor to be applied prior to discharge. Stable from a cardiac perspective for discharge to rehab facility. Follow up with Dr. Oconnor in 2-3 weeks. Nurse Practitioner note has been reviewed, I agree with a documented findings and plan of care. Patient was seen and examined.
--- NOTE | 2018-01-18 18:28 | PN ---
PROGRESS NOTE DATE OF SERVICE: 01/18/2018. This 82-year-old woman who was admitted with dehydration, multiple other medical problems, had fall also, renal failure also. No chest pain. No palpitations. ECF rehab is being planned. EXAM: Alert and oriented x2. Pulse 60, blood pressure 116/66, respirations 16, temperature normal, pulse ox 98% on room air. HEENT: Conjunctivae normal. Oral mucosa moist. NECK: No jugular venous distention. No carotid bruits. No lymph node enlargement. CARDIOVASCULAR: S1, S2 muffled. RESPIRATORY: Breath sounds diminished in the bases. No rhonchi. No crackles. ABDOMEN: Soft. NERVOUS SYSTEM: Nonfocal. LABS: CBC, BMP within normal limits. ASSESSMENT: 1. Fall with possible syncope secondary to dehydration and orthostatic hypotension. 2. Acute renal failure secondary to dehydration and acute tubular necrosis. 3. Increased plasma lactic acid. 4. History of increased AST. 5. Increased WBC. 6. History of atrial fibrillation. 7. History of cerebrovascular accident, transient ischemic attack. 8. Gastroesophageal reflux disease. 9. Hypertension. 10.Hyperlipidemia. 11.Anxiety, depression. RECOMMENDATIONS AND DISCUSSION: Recommend to continue current medical management, continue with symptomatic treatment. Continue with the rest of the medications. Continue with IV hydration. Creatinine is improved significantly. PT/OT evaluation and possible ECF rehab. Further recommendations to follow. MMODL / IJN: [id number] /
[2018-01-18] MEDS: ATORVASTATIN 10 MG TAB PO SCH (21:06)
[2018-01-19] MEDS: SODIUM CHLORIDE 0.9% 1,000 ML IV SCH (05:19)
[2018-01-19] MEDS: LEVOTHYROXINE 125 MCG TAB PO SCH (06:02)
[2018-01-19 07:25] LABS: Basophils % (A) 1 %; Eosinophils # (A) 0.2 k/uL (0-0.7); Eosinophils % (A) 2 %; HCT 36.9 % (34.0-46.0); HGB 12.3 gm/dL (11.4-16.0); Lymphocytes % (A) 26 %; MCH 30.6 pg (25.0-35.0); MCHC 33.4 g/dL (31.0-37.0); MCV 91.7 fL (80.0-100.0); Mean Platelet Volume 7.8; Monocytes # (A) 0.5 k/uL (0-1.0); Monocytes % (A) 7 %; Neutrophils # (A) 4.8 k/uL (1.3-7.7); Neutrophils % (A) 63 %; Platelet Count 147 k/uL (150-450); RBC 4.02 m/uL (3.80-5.40); RDW 14.6 % (11.5-15.5); WBC 7.6 k/uL (3.8-10.6)
[2018-01-19 07:34] LABS: Calcium 9.2 mg/dL (8.4-10.2); Potassium 4.3 mmol/L (3.5-5.1)
[2018-01-19 08:01] VITALS: BP 146/79; PULSE 72; RESP 16; TEMP 97.9
[2018-01-19] MEDS: cefTRIAXone IN SWFI 1,000 MG/10 ML SYRINGE IVP SCH (08:11)
[2018-01-19] MEDS: APIXABAN 5 MG TAB PO SCH (08:11)
[2018-01-19] MEDS: CITALOPRAM HYDROBROMIDE 20 MG TAB PO SCH (08:11)
[2018-01-19] MEDS: ASPIRIN 81 MG PO SCH (08:11)
[2018-01-19] MEDS: METOPROLOL TARTRATE 25 MG TAB PO SCH (08:11)
[2018-01-19] MEDS: PANTOPRAZOLE 40 MG TABLET PO SCH (08:12)
--- NOTE | 2018-01-19 11:40 | P.DS ---
Providers Date of admission: 01/16/18 10:29 Attending physician: Emile Gregory Consults: 01/15/18 20:36 Consult Physician Routine Consulting Provider: Linda Holland Consult Reason/Comments: syncope Do you want consulting provider notified?: Yes Primary care physician: Emile Gregory Hospital Course: Final diagnosis Fall with the syncope secondary to dehydration and orthostatic hypotension. Acute renal failure secondary to dehydration and acute tubular necrosis increased lactic acid UTI Increased AST Increased WBC History atrial fibrillation History of CVA TIA GERD Hypertension Hyperlipidemia Anxiety depression History of present illness this 10-year-old woman with a past medical history of multiple medical problems being followed by Dr. Lacie Gregory in the outpatient setting was admitted with fall syncope and as well as orthostatic hypotension. Patient was treated symptomatically. Patient also had UTI. Patient was given antibiotics. Patient improved significantly. Medications are adjusted. Cardiology saw the patient. See previous notes for details. PTOT evaluate the patient. Patient be sent to [facility] on the [place] for rehab at this time. On exam vitals stable. Cardio S1 and S2 normal. Respirator system clear to auscultation. Abdomen soft nontender. Nervous system diffusely weak. Patient Condition at Discharge: Fair Plan - Discharge Summary Discharge Rx Participant: No New Discharge Prescriptions: New Metoprolol Tartrate [Lopressor] 25 mg PO DAILY tab Acetaminophen Tab [Tylenol] 500 mg PO Q6HR PRN tab PRN Reason: Fever and/ or Mild Pain Cefuroxime [Ceftin] 250 mg PO BID #6 tablet Multivitamins, Thera [Multivitamin] 1 tab PO DAILY #30 tablet Continue Aspirin EC [Ecotrin Low Dose] 81 mg PO DAILY Simvastatin [Zocor] 20 mg PO HS Pantoprazole [Protonix] 40 mg PO DAILY 30 Days #30 tablet. Apixaban [Eliquis] 5 mg PO BID #60 tab Furosemide [Lasix] 20 mg PO DAILY Levothyroxine Sodium [Synthroid] 100 mcg PO DAILY Citalopram Hydrobromide [CeleXA] 20 mg PO DAILY Discontinued Metoprolol Tartrate [Lopressor] 50 mg PO BID #60 tab No Action Furosemide [Lasix] 40 mg PO DAILY 30 Days #30 tab Discharge Medication List Aspirin EC [Ecotrin Low Dose] 81 mg PO DAILY 03/11/16 [History] Furosemide [Lasix] 40 mg PO DAILY 30 Days #30 tab 03/27/17 [Rx] Simvastatin [Zocor] 20 mg PO HS 07/27/17 [History] Pantoprazole [Protonix] 40 mg PO DAILY 30 Days #30 tablet. 07/30/17 [Rx] Apixaban [Eliquis] 5 mg PO BID #60 tab 11/15/17 [Rx] Citalopram Hydrobromide [CeleXA] 20 mg PO DAILY 01/15/18 [History] Furosemide [Lasix] 20 mg PO DAILY 01/15/18 [History] Levothyroxine Sodium [Synthroid] 100 mcg PO DAILY 01/15/18 [History] Metoprolol Tartrate [Lopressor] 25 mg PO DAILY tab 01/18/18 [Rx] Acetaminophen Tab [Tylenol] 500 mg PO Q6HR PRN tab 01/19/18 [Rx] Cefuroxime [Ceftin] 250 mg PO BID #6 tablet 01/19/18 [Rx] Multivitamins, Thera [Multivitamin] 1 tab PO DAILY #30 tablet 01/19/18 [Rx] Follow up Appointment(s)/Referral(s): Emile Gregory MD [Primary Care Provider] - 1-2 days (pt going to [facility]) Kyle Oconnor MD [STAFF PHYSICIAN] - 02/01/18 4:30 pm Activity/Diet/Wound Care/Special Instructions: Diet cardiac activity Limited until follow up follow-up with Dr. Jansen in ECF CBC BMP in 2-3 days
== END 2018-01-19 14:30 | DRG 312 ==
LOC: EC 15:39 → 5MS5E 17:42 → 5ONC 01-16 04:46 → OBSVTOIN 01-16 10:29 → 3SUR 01-17 19:13
PROVIDERS: ADMIT Family Medicine; ATTEND Family Medicine
DX: I95.1 Orthostatic hypotension (principal); N17.0 Acute kidney failure with tubular necrosis; N39.0 Urinary tract infection, site not specified; E86.0 Dehydration; I48.2 Chronic atrial fibrillation; I35.0 Nonrheumatic aortic (valve) stenosis; I10 Essential (primary) hypertension; E78.5 Hyperlipidemia, unspecified; E03.9 Hypothyroidism, unspecified; I25.10 Atherosclerotic heart disease of native coronary artery without angina pectoris; K21.9 Gastro-esophageal reflux disease without esophagitis; L40.9 Psoriasis, unspecified; F41.8 Other specified anxiety disorders; Z91.14 Patient's other noncompliance with medication regimen; Z79.01 Long term (current) use of anticoagulants; Z79.82 Long term (current) use of aspirin; Z79.890 Hormone replacement therapy; Z79.899 Other long term (current) drug therapy; Z98.42 Cataract extraction status, left eye; Z86.73 Personal history of transient ischemic attack (TIA), and cerebral infarction without residual deficits; Z90.49 Acquired absence of other specified parts of digestive tract; Z82.3 Family history of stroke; Z83.3 Family history of diabetes mellitus; Z82.49 Family history of ischemic heart disease and other diseases of the circulatory system; W18.30XA Fall on same level, unspecified, initial encounter
CPT/HCPCS: 36415; 70450; 71046; 72125; 72170; 80048; 80053; 81001; 82550; 82553; 83605; 83735; 84100; 84132; 84439; 84443; 84481; 84484; 85025; 85610; 85730; 87040; 87077; 87086; 87186; 93005; 93270; 93271; 93306; 93880; 96360; 96361; 99285

== ENCOUNTER 2018-08-05 13:25 | Emergency (ER) | payer MEDICARE, OTHER ==
[2018-08-05 13:44] VITALS: TEMP 98.5
[2018-08-05] MEDS ORDERED: SODIUM CHLORIDE 0.9% 1,000 ML IV STA (13:45)
[2018-08-05] MEDS ORDERED: ONDANSETRON 4 MG/2 ML VIAL IVP STA ×2 (13:45→14:54)
[2018-08-05 14:23] LABS: Albumin 4.2 g/dL (3.5-5.0); Calcium 9.9 mg/dL (8.4-10.2); Potassium 3.7 mmol/L (3.5-5.1); Total Bilirubin 0.6 mg/dL (0.2-1.3); Total Protein 7.2 g/dL (6.3-8.2)
[2018-08-05 14:24] LABS: HCT 39.3 % (34.0-46.0); HGB 12.8 gm/dL (11.4-16.0); MCHC 32.5 g/dL (31.0-37.0); MCV 92.3 fL (80.0-100.0); RBC 4.26 m/uL (3.80-5.40); RDW 13.1 % (11.5-15.5); WBC 8.2 k/uL (3.8-10.6)
[2018-08-05 14:25] LABS: Basophils % (A) 0 %; Eosinophils # (A) 0.1 k/uL (0-0.7); Eosinophils % (A) 1 %; Lymphocytes # (A) 1.3 k/uL (1.0-4.8); Lymphocytes % (A) 15 %; Mean Platelet Volume 7.6; Monocytes # (A) 0.5 k/uL (0-1.0); Monocytes % (A) 6 %; Neutrophils # (A) 6.2 k/uL (1.3-7.7); Neutrophils % (A) 76 %; Platelet Count 241 k/uL (150-450)
[2018-08-05 14:27] LABS: Appearance,Urine Clear (Clear); Bilirubin,Urine Negative (Negative); Blood,Urine Negative (Negative); Color,Urine Light Yellow; Glucose,Urine (UA) Negative (Negative); Ketones,Urine Negative (Negative); Leukocyte Esterase,Urine Negative (Negative); Nitrite,Urine Negative (Negative); PH, Urine 7.5 (5.0-8.0); Protein,Urine Negative (Negative); Specific Gravity,Urine 1.005 (1.001-1.035); Urobilinogen,Urine <2.0 mg/dL (<2.0)
--- NOTE | 2018-08-05 14:41 | ED ---
Nausea/Vomiting/Diarrhea HPI - General Chief complaint: Nausea/Vomiting/Diarrhea Stated complaint: Vomiting Time Seen by Provider: 08/05/18 13:44 Source: patient, EMS, RN notes reviewed Mode of arrival: EMS Limitations: no limitations - History of Present Illness Initial comments: 83-year-old female presents emergency Department via EMS with chief complaint of nausea vomiting. Patient states that she was placed on antibiotic last week for possible urinary tract infection. Patient states every time she takes medication she gets sick. Patient states that she feels fine. Patient denies any diarrhea, constipation, fever, chills, flank pain, chest pain, shortness breath, headache or dizziness. - Related Data Home Medications Medication Instructions Recorded Confirmed Aspirin EC [Ecotrin Low Dose] 81 mg PO DAILY 03/11/16 01/15/18 Simvastatin [Zocor] 20 mg PO HS 07/27/17 01/15/18 Citalopram Hydrobromide [CeleXA] 20 mg PO DAILY 01/15/18 01/15/18 Furosemide [Lasix] 20 mg PO DAILY 01/15/18 01/15/18 Levothyroxine Sodium [Synthroid] 100 mcg PO DAILY 01/15/18 01/15/18 Previous Rx's Medication Instructions Recorded Furosemide [Lasix] 40 mg PO DAILY 30 Days #30 tab 03/27/17 Pantoprazole [Protonix] 40 mg PO DAILY 30 Days #30 07/30/17 tablet. Apixaban [Eliquis] 5 mg PO BID #60 tab 11/15/17 Metoprolol Tartrate [Lopressor] 25 mg PO DAILY tab 01/18/18 Acetaminophen Tab [Tylenol] 500 mg PO Q6HR PRN tab 01/19/18 Cefuroxime [Ceftin] 250 mg PO BID #6 tablet 01/19/18 Multivitamins, Thera [Multivitamin] 1 tab PO DAILY #30 tablet 01/19/18 Allergies Allergy/AdvReac Type Severity Reaction Status Date / Time Penicillins Allergy Rash/Hives Verified 01/15/18 16:17 Sulfa (Sulfonamide Allergy Unknown Verified 01/15/18 16:17 Antibiotics) Childhood adhesive tape AdvReac PEELS SKIN Verified 01/15/18 16:17 Review of Systems ROS Statement: Those systems with pertinent positive or pertinent negative responses have been documented in the HPI. ROS Other: All systems not noted in ROS Statement are negative. 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 History of Any Multi-Drug Resistant Organisms: None Reported Past Surgical History: Section, Cholecystectomy Additional Past Surgical History / Comment(s): jaw and pelvis surgery from accident many years ago, L cataract removed. Past Anesthesia/Blood Transfusion Reactions: Postoperative Nausea & Vomiting ( PONV) Additional Past Anesthesia/Blood Transfusion Reaction / Comment(s): Pt believes she received blood after her accident many yrs ago without reaction. Past Psychological History: Anxiety, Depression Smoking Status: Never smoker Past Alcohol Use History: None Reported Past Drug Use History: None Reported - Past Family History Mother Family Medical History: CVA/TIA Additional Family Medical History / Comment(s): Mother of a CVA at the age of 92 yrs. She also had a bowel disorder Father Family Medical History: Diabetes Mellitus, Myocardial Infarction ([place]) Additional Family Medical History / Comment(s): Father of a [place] at the age of 88yrs. General Exam Limitations: no limitations General appearance: alert, in no apparent distress Head exam: Present: atraumatic, normocephalic, normal inspection Eye exam: Present: normal appearance, PERRL, EOMI. Absent: scleral icterus, conjunctival injection, periorbital swelling ENT exam: Present: normal exam, normal oropharynx, mucous membranes moist Neck exam: Present: normal inspection, full ROM. Absent: tenderness, meningismus, lymphadenopathy Respiratory exam: Present: normal lung sounds bilaterally. Absent: respiratory distress, wheezes, rales, rhonchi, stridor Cardiovascular Exam: Present: regular rate, normal rhythm, normal heart sounds. Absent: systolic murmur, diastolic murmur, rubs, gallop, clicks GI/Abdominal exam: Present: soft, normal bowel sounds. Absent: distended, tenderness, guarding, rebound, rigid Back exam: Absent: CVA tenderness (R), CVA tenderness (L) Skin exam: Present: warm, dry, intact, normal color. Absent: rash Course Vital Signs 08/05/18 13:37 Temperature 98.5 F Pulse Rate 56 L Respiratory 19 Rate Blood Pressure 151/63 O2 Sat by Pulse 100 Oximetry Medical Decision Making - Medical Decision Making 83-year-old female presented for nausea vomiting. Patient symptoms related to antibiotic use. Patient lab work urinalysis unremarkable. Patient can discontinue antibiotics and will be discharged. - Lab Data Result diagrams: 08/05/18 13:35 08/05/18 13:35 Lab Results 08/05/18 08/05/18 08/05/18 Range/Units 13:35 13:35 14:00 WBC 8.2 (3.8-10.6) k/uL RBC 4.26 (3.80-5.40) m/uL Hgb 12.8 (11.4-16.0) gm/dL Hct 39.3 (34.0-46.0) % MCV 92.3 (80.0-100.0) fL MCH 30.0 (25.0-35.0) pg MCHC 32.5 (31.0-37.0) g/dL RDW 13.1 (11.5-15.5) % Plt Count 241 (150-450) k/uL Neutrophils % 76 % Lymphocytes % 15 % Monocytes % 6 % Eosinophils % 1 % Basophils % 0 % Neutrophils # 6.2 (1.3-7.7) k/uL Lymphocytes # 1.3 (1.0-4.8) k/uL Monocytes # 0.5 (0-1.0) k/uL Eosinophils # 0.1 (0-0.7) k/uL Basophils # 0.0 (0-0.2) k/uL Sodium 141 (137-145) mmol/L Potassium 3.7 (3.5-5.1) mmol/L Chloride 103 (98-107) mmol/L Carbon Dioxide 27 (22-30) mmol/L Anion Gap 11 mmol/L BUN 22 H (7-17) mg/dL Creatinine 1.31 H (0.52-1.04) mg/dL Est GFR (CKD-EPI)AfAm 44 (>60 ml/min/1.73 sqM) Est GFR (CKD-EPI)NonAf 38 (>60 ml/min/1.73 sqM) Glucose 100 H (74-99) mg/dL Calcium 9.9 (8.4-10.2) mg/dL Total Bilirubin 0.6 (0.2-1.3) mg/dL AST 23 (14-36) U/L ALT 22 (9-52) U/L Alkaline Phosphatase 106 (38-126) U/L Total Protein 7.2 (6.3-8.2) g/dL Albumin 4.2 (3.5-5.0) g/dL Amylase 77 (30-110) U/L Lipase 134 (23-300) U/L Urine Color Light Yellow Urine Appearance Clear (Clear) Urine pH 7.5 (5.0-8.0) Ur Specific [place] 1.005 (1.001-1.035) Urine Protein Negative (Negative) Urine Glucose (UA) Negative (Negative) Urine Ketones Negative (Negative) Urine Blood Negative (Negative) Urine Nitrite Negative (Negative) Urine Bilirubin Negative (Negative) Urine Urobilinogen <2.0 (<2.0) mg/dL Ur Leukocyte Esterase Negative (Negative) Disposition Clinical Impression: Nausea & vomiting Disposition: HOME SELF-CARE Condition: Stable Instructions (If sedation given, give patient instructions): Acute Nausea and Vomiting (ED) Additional Instructions: Please return to the Emergency Department if symptoms worsen or any other concerns. Is patient prescribed a controlled substance at d/c from ED?: No Referrals: Emile Gregory MD [Primary Care Provider] - 1-2 days Time of Disposition: 14:54
[2018-08-05] MEDS ORDERED: ONDANSETRON 4 MG ODT STARTER PACK 2 TAB BTL PO STA (15:05)
[2018-08-05 15:14] VITALS: BP 158/62; PULSE 51; RESP 18
== END 2018-08-05 15:54 | disposition home or self-care (01) ==
LOC: EC 13:25
DX: R11.2 Nausea with vomiting, unspecified (principal); I48.91 Unspecified atrial fibrillation; K21.9 Gastro-esophageal reflux disease without esophagitis; E78.5 Hyperlipidemia, unspecified; I10 Essential (primary) hypertension; E03.9 Hypothyroidism, unspecified; F32.9 Major depressive disorder, single episode, unspecified; F41.9 Anxiety disorder, unspecified; Z86.73 Personal history of transient ischemic attack (TIA), and cerebral infarction without residual deficits; Z79.82 Long term (current) use of aspirin; Z79.890 Hormone replacement therapy; Z79.899 Other long term (current) drug therapy; Z88.0 Allergy status to penicillin; Z88.2 Allergy status to sulfonamides; Z91.048 Other nonmedicinal substance allergy status; Z90.49 Acquired absence of other specified parts of digestive tract; Z53.29 Procedure and treatment not carried out because of patient's decision for other reasons
CPT/HCPCS: 36415; 80053; 82150; 83690; 85025; 81003; 99284; 96360; S0119

== ENCOUNTER 2018-09-05 11:22 | Emergency (ER) | payer MEDICARE, OTHER ==
--- NOTE | 2018-09-05 12:39 | CT ---
EXAMINATION TYPE: CT brain linette wo con DATE OF EXAM: 09/05/2018 COMPARISON: 01/15/2018 HISTORY: 83-year-old female pain after fall pain post fall CT DLP: 1315.5 mGycm Automated exposure control for dose reduction was used. Technique: Examination of the head was done in axial plane without intravenous contrast. Coronal and sagittal reconstructions performed. CT of the cervical spine was obtained in axial plane without intravenous injection of contrast mater ial. Coronal and sagittal reformatted images were obtained from the axial views for evaluation of f ractures, spinal alignment and canal. FINDINGS: Head: There is no evidence of acute intracranial hemorrhage, acute ischemic changes, mass, mass-effect, or extra-axial fluid collection. There is no effacement of cerebral sulci or basal subarachnoid cister ns. There is no midline shift. [place]-white matter distinction is preserved. Encephalomalacia right frontal lobe similar from prior related to prior infarct. Confluent white arjun er hypodensities, right greater than left cerebral hemispheres related to changes of chronic small ve ssel ischemic disease. Mild central cerebral atrophy with mild prominence to the ventricular system is unchanged. Atelectati c calcifications within the carotid siphons. Paranasal sinuses show mild mucosal thickening left maxillary sinus. Some surgical material at the bi lateral mandibular rami, and pneumatized mastoid air cells. No calvarial fracture. Cervical spine: No craniocervical junction anomaly, predental space widening, or prevertebral soft tissue swelling. D egenerative changes at the C1 dens articulation. Mild to moderate multilevel degenerative disc disease with hypertrophic facet and uncovertebral joint arthropathy, left greater than right. Stable grade 1 anterolisthesis at C4-C5. No acute fracture of the cervical spine. Variable mild neuroforaminal stenoses throughout, more moderate on the left at C4-C5 and C5-C6. Sagittal and coronal reformatted images confirm above findings. COMBINED IMPRESSION: 1. 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 Mild atrophy and some confluent changes of c hronic small vessel ischemic disease. No acute intracranial abnormality seen. 2. No acute fracture of the cervical spine. Similar spondylotic change with degenerative grade 1 ante rolisthesis at C4-C5.
--- NOTE | 2018-09-05 12:43 | XR ---
EXAMINATION TYPE: XR chest 2V DATE OF EXAM: 09/05/2018 COMPARISON: 01/15/2018 HISTORY: 83-year-old female with pain after fall TECHNIQUE: AP and lateral views FINDINGS: The cardiomediastinal silhouette, aorta, and pulmonary vasculature are within normal limits. Mild int erstitial prominence is unchanged. Mild hyperinflation may relate to underlying emphysema. Otherwise, lungs and pleural spaces are clear. IMPRESSION: Chronic changes without acute cardiopulmonary process.
--- NOTE | 2018-09-05 12:46 | XR ---
EXAMINATION TYPE: AP view pelvis and 2 views right hip DATE OF EXAM: 09/05/2018 COMPARISON: NONE HISTORY: 83-year-old female with pain after fall FINDINGS: Moderate to severe degenerative change at the left hip. Possible old healed fracture deformity left s uperior pubic ramus. Suspected moderate degenerative change at the right hip with axial joint space l oss and an either old posttraumatic deformity of the acetabulum or bony remodeling from the underlyin g degenerative change. There is osteopenia. No displaced fracture seen. IMPRESSION: 1. Osteopenia. No displaced fracture seen. 2. Moderate to severe left hip OA. Suspect moderate underlying OA at the right hip with axial joint s pace narrowing. Either old posttraumatic bony deformity of the right acetabulum or bony remodeling fr om the underlying degenerative change. 3. If the patient is nonweightbearing, MRI can provide more sensitive evaluation.
--- NOTE | 2018-09-05 13:10 | ED ---
Fall HPI - General Chief Complaint: Fall Stated Complaint: FALL Time Seen by Provider: 09/05/18 11:56 Source: patient, RN notes reviewed, old records reviewed Mode of arrival: EMS - History of Present Illness Initial Comments: 83-year-old female presents to trip and fall today in her kitchen. Hitting her head and neck. She complains of some right hip pain. Sole reports she tripped over a Tv Tray. She denies arm pain. She had no LOC. Patient has no other complaints. She denies chest pain, palpitaitons, headache. - Related Data Home Medications Medication Instructions Recorded Confirmed Citalopram Hydrobromide [CeleXA] 20 mg PO HS 01/15/18 09/05/18 ALPRAZolam [Xanax] 0.25 mg PO TID PRN 08/05/18 09/05/18 Levothyroxine Sodium [Synthroid] 88 mcg PO DAILY 08/05/18 09/05/18 Metoprolol Tartrate [Lopressor] 25 mg PO BID 08/05/18 09/05/18 Furosemide [Lasix] 20 mg PO DAILY 09/05/18 09/05/18 Simvastatin [Zocor] 10 mg PO HS 09/05/18 09/05/18 Previous Rx's Medication Instructions Recorded Pantoprazole [Protonix] 40 mg PO DAILY 30 Days #30 07/30/17 tablet. Apixaban [Eliquis] 5 mg PO BID #60 tab 11/15/17 Allergies Allergy/AdvReac Type Severity Reaction Status Date / Time Penicillins Allergy Rash/Hives Verified 09/05/18 12:01 Sulfa (Sulfonamide Allergy Unknown Verified 09/05/18 12:01 Antibiotics) Childhood adhesive tape AdvReac PEELS SKIN Verified 09/05/18 12:01 Review of Systems ROS Statement: Those systems with pertinent positive or pertinent negative responses have been documented in the HPI. ROS Other: All systems not noted in ROS Statement are negative. 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 History of Any Multi-Drug Resistant Organisms: None Reported Past Surgical History: Section, Cholecystectomy Additional Past Surgical History / Comment(s): jaw and pelvis surgery from accident many years ago, L cataract removed. Past Anesthesia/Blood Transfusion Reactions: Postoperative Nausea & Vomiting (PONV) Additional Past Anesthesia/Blood Transfusion Reaction / Comment(s): Pt believes she received blood after her accident many yrs ago without reaction. Past Psychological History: Anxiety, Depression Smoking Status: Never smoker Past Alcohol Use History: None Reported Past Drug Use History: None Reported - Past Family History Mother Family Medical History: CVA/TIA Additional Family Medical History / Comment(s): Mother of a CVA at the age of 92 yrs. She also had a bowel disorder Father Family Medical History: Diabetes Mellitus, Myocardial Infarction ([place]) Additional Family Medical History / Comment(s): Father of a [place] at the age of 88yrs. General Exam - General Exam Comments Initial Comments: Well appearing 83 year old female, no distress. Limitations: physical limitation General appearance: alert, in no apparent distress Head exam: Present: atraumatic, normocephalic, normal inspection Eye exam: Present: normal appearance, PERRL, EOMI. Absent: scleral icterus, conjunctival injection, periorbital swelling ENT exam: Present: normal exam, mucous membranes moist Neck exam: Present: normal inspection, other (Patient in C collar. ). Absent: tenderness, meningismus, lymphadenopathy Respiratory exam: Present: normal lung sounds bilaterally. Absent: respiratory distress, wheezes, rales, rhonchi, stridor Cardiovascular Exam: Present: regular rate, normal rhythm, normal heart sounds. Absent: systolic murmur, diastolic murmur, rubs, gallop, clicks GI/Abdominal exam: Present: soft, normal bowel sounds. Absent: distended, tenderness, guarding, rebound, rigid Extremities exam: Present: normal inspection, full ROM, normal capillary refill. Absent: tenderness, pedal edema, joint swelling, calf tenderness Back exam: Present: normal inspection Neurological exam: Present: alert Course Vital Signs 09/05/18 09/05/18 09/05/18 11:22 12:55 13:55 Temperature 97.2 F L 98.1 F Pulse Rate 60 59 L 58 L Respiratory 18 20 18 Rate Blood Pressure 162/70 165/68 159/67 O2 Sat by Pulse 100 99 99 Oximetry Medical Decision Making - Medical Decision Making Pleasant 83 year old female presents after trip and fall, She reports she trippedover TV tray. She is neurologically intact. Not on blood thinner. Patient has no acute changes in CT brain.C spine shows no acute changes or fracture. Evidnce of old infarct. Patient has complaints of R hip pain. Patient has no fracture or dislocation on Hip. Ambulating without difficulty. Patient will be discharged back to assisted living facility. - Radiology Data Radiology results: report reviewed Old right frontal infarct with encephalomalacia. Mild atrophy with some confluent changes of the chronic small vessel ischemic disease. No acute fracture cervical spine. Similar spondylitic change in grade 1 and she'll spaces of C4-C5. Osteopenia. No evidence of fracture seen. Moderate left to severe left hypoxia arthritis. Suspect 08 the right hip. Old process traumatic bony deformity of the right acetabulum and or bony remodeling from degenerative disc disease. Chest x-ray shows no current acute process. Disposition Clinical Impression: Fall, Minor head injury without loss of consciousness, Contusion of right hip Disposition: HOME SELF-CARE Condition: Good Instructions (If sedation given, give patient instructions): Fall Prevention for Older Adults (ED), Head Injury (ED) Additional Instructions: Follow-up with primary care doctor. Patient should be monitored if there is any signs of altered mental status return to ED at once. Patient can return to the emergency department if any alarming signs or symptoms occur. Is patient prescribed a controlled substance at d/c from ED?: No Referrals: Emile Gregory MD [Primary Care Provider] - 1-2 days Time of Disposition: 13:45
[2018-09-05 14:27] VITALS: BP 159/67; PULSE 58; RESP 18; TEMP 98.1
== END 2018-09-05 14:15 | disposition home or self-care (01) ==
LOC: EC 11:22
DX: S70.01XA Contusion of right hip, initial encounter (principal); S09.90XA Unspecified injury of head, initial encounter; I48.91 Unspecified atrial fibrillation; E78.5 Hyperlipidemia, unspecified; I10 Essential (primary) hypertension; E03.9 Hypothyroidism, unspecified; Z86.73 Personal history of transient ischemic attack (TIA), and cerebral infarction without residual deficits; F32.9 Major depressive disorder, single episode, unspecified; F41.9 Anxiety disorder, unspecified; Z79.890 Hormone replacement therapy; Z79.899 Other long term (current) drug therapy; Z88.0 Allergy status to penicillin; Z88.2 Allergy status to sulfonamides; Z91.048 Other nonmedicinal substance allergy status; W01.198A Fall on same level from slipping, tripping and stumbling with subsequent striking against other object, initial encounter; Y92.000 Kitchen of unspecified non-institutional (private) residence as the place of occurrence of the external cause
CPT/HCPCS: 70450; 71046; 72125; 73502; 99284

== ENCOUNTER → 2019-01-01 | Outpatient (CLI) | payer MEDICARE, OTHER ==
[2019-01-01 13:08] LABS: Basophils # (A) 0.1 k/uL (0-0.2); Basophils % (A) 1 %; Eosinophils # (A) 0.2 k/uL (0-0.7); Eosinophils % (A) 3 %; HCT 37.7 % (34.0-46.0); Lymphocytes # (A) 1.6 k/uL (1.0-4.8); Lymphocytes % (A) 21 %; MCH 29.8 pg (25.0-35.0); MCHC 31.9 g/dL (31.0-37.0); MCV 93.4 fL (80.0-100.0); Mean Platelet Volume 8.4; Monocytes # (A) 0.5 k/uL (0-1.0); Monocytes % (A) 6 %; Neutrophils # (A) 5.3 k/uL (1.3-7.7); Neutrophils % (A) 68 %; Platelet Count 213 k/uL (150-450); RBC 4.04 m/uL (3.80-5.40); RDW 13.1 % (11.5-15.5); WBC 7.9 k/uL (3.8-10.6)
[2019-01-01 20:39] LABS: African American GFR (CKD) 54.5 (60.0-200.0)
[2019-01-01 21:24] LABS: Hepatitis B Surface AB- Quant 3.5 mIU/mL; Hepatitis B Surface Antibody Non-Reactive (Non-Reactive); Hepatitis B Surface Antigen Non-Reactive (Non-Reactive)
== END | disposition home or self-care (01) ==
LOC: LABWHC1 12:14
PROVIDERS: ATTEND Nurse Practitioner Family
DX: L40.0 Psoriasis vulgaris (principal)
CPT/HCPCS: 36415; 82565; 84450; 84460; 85025; 86480; 86706; 87340

== ENCOUNTER 2019-02-15 15:54 | Emergency (ER) | payer MEDICARE, OTHER ==
--- NOTE | 2019-02-15 16:56 | ED ---
General Adult HPI - General Stated complaint: Mental Health Time Seen by Provider: 02/15/19 16:03 Source: patient, RN notes reviewed, Caregiver Limitations: no limitations - History of Present Illness Initial comments: Patient is a pleasant 84-year-old female presenting to the emergency department with complaints of depression. Patient states her recently . Patient did make suicidal statements. Tax Intern provides us information however patient does agree to it. Patient feels like she would never actually harm herself. Patient denies any homicidal thoughts. No physical complaints. No alcohol or street drug use. No hallucinations. - Related Data Home Medications Medication Instructions Recorded Confirmed ALPRAZolam [Xanax] 0.25 mg PO TID PRN 08/05/18 02/15/19 Levothyroxine Sodium [Synthroid] 88 mcg PO DAILY 08/05/18 02/15/19 Metoprolol Tartrate [Lopressor] 25 mg PO BID 08/05/18 02/15/19 Furosemide [Lasix] 20 mg PO DAILY 09/05/18 02/15/19 Simvastatin [Zocor] 10 mg PO HS 09/05/18 02/15/19 DULoxetine HCL [Cymbalta] 30 mg PO HS 02/15/19 02/15/19 Previous Rx's Medication Instructions Recorded Pantoprazole [Protonix] 40 mg PO DAILY 30 Days #30 07/30/17 tablet. Apixaban [Eliquis] 5 mg PO BID #60 tab 11/15/17 Allergies Allergy/AdvReac Type Severity Reaction Status Date / Time Penicillins Allergy Rash/Hives Verified 02/15/19 17:04 Sulfa (Sulfonamide Allergy Unknown Verified 02/15/19 17:04 Antibiotics) Childhood adhesive tape AdvReac PEELS SKIN Verified 02/15/19 17:04 Review of Systems ROS Statement: Those systems with pertinent positive or pertinent negative responses have been documented in the HPI. ROS Other: All systems not noted in ROS Statement are negative. 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 History of Any Multi-Drug Resistant Organisms: None Reported Past Surgical History: Section, Cholecystectomy Additional Past Surgical History / Comment(s): jaw and pelvis surgery from accident many years ago, L cataract removed. Past Anesthesia/Blood Transfusion Reactions: Postoperative Nausea & Vomiting (PONV) Additional Past Anesthesia/Blood Transfusion Reaction / Comment(s): Pt believes she received blood after her accident many yrs ago without reaction. Past Psychological History: Anxiety, Depression Smoking Status: Never smoker Past Alcohol Use History: None Reported Past Drug Use History: None Reported - Past Family History Mother Family Medical History: CVA/TIA Additional Family Medical History / Comment(s): Mother of a CVA at the age of 92 yrs. She also had a bowel disorder Father Family Medical History: Diabetes Mellitus, Myocardial Infarction ([place]) Additional Family Medical History / Comment(s): Father of a [place] at the age of 88yrs. General Exam Limitations: no limitations General appearance: alert, in no apparent distress Head exam: Present: normocephalic Eye exam: Present: normal appearance Neck exam: Present: normal inspection Respiratory exam: Present: normal lung sounds bilaterally Cardiovascular Exam: Present: regular rate, normal rhythm GI/Abdominal exam: Present: soft. Absent: tenderness Extremities exam: Present: normal inspection Neurological exam: Present: alert Psychiatric exam: Present: depressed Skin exam: Present: normal color Course Vital Signs 02/15/19 16:53 Temperature 98.8 F Pulse Rate 87 Respiratory 16 Rate Blood Pressure 175/65 O2 Sat by Pulse 100 Oximetry EKG Findings - EKG Comments: EKG Findings:: Sinus bradycardia at 55. Sinus arrhythmia. MO 186. QRS 106. QT 504. QTC 42. Normal axis. LVH criteria. Nonspecific T waves. Medical Decision Making - Medical Decision Making Patient seen by mental health services with plan for discharge. Patient denies suicidal ideation. - Lab Data Result diagrams: 02/15/19 18:24 02/15/19 18:24 Lab Results 02/15/19 02/15/19 Range/Units 18:24 18:24 WBC 10.5 (3.8-10.6) k/uL RBC 4.21 (3.80-5.40) m/uL Hgb 12.5 (11.4-16.0) gm/dL Hct 37.3 (34.0-46.0) % MCV 88.6 (80.0-100.0) fL MCH 29.7 (25.0-35.0) pg MCHC 33.5 (31.0-37.0) g/dL RDW 13.4 (11.5-15.5) % Plt Count 204 (150-450) k/uL Neutrophils % 72 % Lymphocytes % 17 % Monocytes % 6 % Eosinophils % 3 % Basophils % 2 % Neutrophils # 7.5 (1.3-7.7) k/uL Lymphocytes # 1.8 (1.0-4.8) k/uL Monocytes # 0.6 (0-1.0) k/uL Eosinophils # 0.3 (0-0.7) k/uL Basophils # 0.2 (0-0.2) k/uL Sodium 141 (137-145) mmol/L Potassium 4.8 (3.5-5.1) mmol/L Chloride 103 (98-107) mmol/L Carbon Dioxide 27 (22-30) mmol/L Anion Gap 11 mmol/L BUN 20 H (7-17) mg/dL Creatinine 1.09 H (0.52-1.04) mg/dL Est GFR (CKD-EPI)AfAm 55 (>60 ml/min/1.73 sqM) Est GFR (CKD-EPI)NonAf 48 (>60 ml/min/1.73 sqM) Glucose 89 (74-99) mg/dL Calcium 10.3 H (8.4-10.2) mg/dL Serum Alcohol <10 mg/dL Disposition Clinical Impression: Depression Disposition: HOME SELF-CARE Condition: Stable Instructions (If sedation given, give patient instructions): Depression (ED) Additional Instructions: Please follow-up with your doctor in the next couple days for recheck. Return for thoughts of self-harm, worsening symptoms, or other concerns. Is patient prescribed a controlled substance at d/c from ED?: No Referrals: Emile Gregory MD [Primary Care Provider] - 1-2 days Time of Disposition: 21:12
[2019-02-15 17:33] VITALS: BP 175/65; PULSE 87; RESP 16; TEMP 98.8
[2019-02-15 18:37] LABS: Basophils # (A) 0.2 k/uL (0-0.2); Basophils % (A) 2 %; Eosinophils # (A) 0.3 k/uL (0-0.7); Eosinophils % (A) 3 %; HCT 37.3 % (34.0-46.0); HGB 12.5 gm/dL (11.4-16.0); Lymphocytes # (A) 1.8 k/uL (1.0-4.8); Lymphocytes % (A) 17 %; MCH 29.7 pg (25.0-35.0); MCHC 33.5 g/dL (31.0-37.0); MCV 88.6 fL (80.0-100.0); Mean Platelet Volume 8.1; Monocytes # (A) 0.6 k/uL (0-1.0); Monocytes % (A) 6 %; Neutrophils # (A) 7.5 k/uL (1.3-7.7); Neutrophils % (A) 72 %; Platelet Count 204 k/uL (150-450); RBC 4.21 m/uL (3.80-5.40); RDW 13.4 % (11.5-15.5); WBC 10.5 k/uL (3.8-10.6)
[2019-02-15 18:44] LABS: African American GFR (CKD) 55 (>60 ml/min/1.73 sqM); Alcohol <10 mg/dL; Anion Gap 11 mmol/L; Blood Urea Nitrogen 20 mg/dL (7-17); Calcium 10.3 mg/dL (8.4-10.2); Carbon Dioxide 27 mmol/L (22-30); Chloride 103 mmol/L (98-107); Glucose 89 mg/dL (74-99); Potassium 4.8 mmol/L (3.5-5.1); Sodium 141 mmol/L (137-145)
== END 2019-02-15 22:00 | disposition home or self-care (01) ==
LOC: EC 15:54
DX: F32.9 Major depressive disorder, single episode, unspecified (principal); F41.9 Anxiety disorder, unspecified; E78.5 Hyperlipidemia, unspecified; I10 Essential (primary) hypertension; E03.9 Hypothyroidism, unspecified; I48.91 Unspecified atrial fibrillation; Z79.890 Hormone replacement therapy; Z79.899 Other long term (current) drug therapy; Z88.0 Allergy status to penicillin; Z88.2 Allergy status to sulfonamides; Z91.048 Other nonmedicinal substance allergy status; Z86.73 Personal history of transient ischemic attack (TIA), and cerebral infarction without residual deficits
CPT/HCPCS: 36415; 93005; 80048; 85025; 99284; G0480; 80320

== ENCOUNTER 2019-02-18 18:33 | Emergency (ER) | payer MEDICARE, OTHER ==
[2019-02-18 18:44] VITALS: PULSE 65; RESP 16; TEMP 98.5
[2019-02-18] MEDS ORDERED: SODIUM CHLORIDE 0.9% 500 ML 500 ML IV STA (19:46)
[2019-02-18 20:00] LABS: Basophils # (A) 0.1 k/uL (0-0.2); Basophils % (A) 1 %; Eosinophils # (A) 0.1 k/uL (0-0.7); Eosinophils % (A) 1 %; HCT 39.3 % (34.0-46.0); HGB 13.3 gm/dL (11.4-16.0); Lymphocytes # (A) 1.5 k/uL (1.0-4.8); Lymphocytes % (A) 16 %; MCH 30.7 pg (25.0-35.0); MCHC 33.8 g/dL (31.0-37.0); MCV 90.6 fL (80.0-100.0); Mean Platelet Volume 8.6; Monocytes # (A) 0.6 k/uL (0-1.0); Monocytes % (A) 6 %; Neutrophils # (A) 6.9 k/uL (1.3-7.7); Neutrophils % (A) 75 %; Platelet Count 212 k/uL (150-450); RBC 4.34 m/uL (3.80-5.40); RDW 15.2 % (11.5-15.5); WBC 9.2 k/uL (3.8-10.6)
--- NOTE | 2019-02-18 20:00 | ED ---
General Adult HPI - General Chief complaint: Weakness Stated complaint: WEAKNESS Time Seen by Provider: 02/18/19 18:35 Source: patient, EMS, RN notes reviewed Mode of arrival: EMS Limitations: no limitations - History of Present Illness Initial comments: This is an 84-year-old female who presents to the emergency department stating she was having difficulty standing up from a sitting position so she called EMS because she thought she might be weak. Upon arrival to the emergency department patient denies any weakness denies any pain and states she wants to go home. Patient is only alert and oriented 2 and until he get some verification for family that this is her baseline we will do a workup. Patient denies chest pain L petitions difficulty breathing shortest breath per patient denies any recent fever chills or cough per patient denies abdominal pain patient denies nausea vomiting diarrhea per patient denies headache patient denies numbness weakness per patient denies lightheadedness dizziness or syncopal episode. Patient denies any recent injury or trauma. Date she had 2 teeth removed yesterday. - Related Data Home Medications Medication Instructions Recorded Confirmed ALPRAZolam [Xanax] 0.25 mg PO TID PRN 08/05/18 02/18/19 Levothyroxine Sodium [Synthroid] 88 mcg PO DAILY 08/05/18 02/18/19 Metoprolol Tartrate [Lopressor] 25 mg PO BID 08/05/18 02/18/19 Furosemide [Lasix] 20 mg PO DAILY 09/05/18 02/18/19 Simvastatin [Zocor] 10 mg PO HS 09/05/18 02/18/19 DULoxetine HCL [Cymbalta] 30 mg PO HS 02/15/19 02/18/19 Previous Rx's Medication Instructions Recorded Pantoprazole [Protonix] 40 mg PO DAILY 30 Days #30 07/30/17 tablet. Apixaban [Eliquis] 5 mg PO BID #60 tab 11/15/17 Nitrofurantoin Monohyd/M-Cryst 100 mg PO Q12HR #14 cap 02/18/19 [Macrobid] Allergies Allergy/AdvReac Type Severity Reaction Status Date / Time Penicillins Allergy Rash/Hives Verified 02/18/19 18:55 Sulfa (Sulfonamide Allergy Unknown Verified 02/18/19 18:55 Antibiotics) Childhood adhesive tape AdvReac PEELS SKIN Verified 02/18/19 18:55 Review of Systems ROS Statement: Those systems with pertinent positive or pertinent negative responses have been documented in the HPI. ROS Other: All systems not noted in ROS Statement are negative. 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 History of Any Multi-Drug Resistant Organisms: None Reported Past Surgical History: Section, Cholecystectomy Additional Past Surgical History / Comment(s): jaw and pelvis surgery from accident many years ago, L cataract removed. Past Anesthesia/Blood Transfusion Reactions: Postoperative Nausea & Vomiting (PONV) Additional Past Anesthesia/Blood Transfusion Reaction / Comment(s): Pt believes she received blood after her accident many yrs ago without reaction. Past Psychological History: Anxiety, Depression Smoking Status: Never smoker Past Alcohol Use History: None Reported Past Drug Use History: None Reported - Past Family History Mother Family Medical History: CVA/TIA Additional Family Medical History / Comment(s): Mother of a CVA at the age of 92 yrs. She also had a bowel disorder Father Family Medical History: Diabetes Mellitus, Myocardial Infarction ([place]) Additional Family Medical History / Comment(s): Father of a [place] at the age of 88yrs. General Exam - General Exam Comments Initial Comments: GENERAL: Patient is well-developed and well-nourished. Patient is nontoxic and well- hydrated and is in no acute distress. ENT: Neck is soft and supple. No significant lymphadenopathy is noted. Oropharynx is clear. Moist mucous membranes. Neck has full range of motion without eliciting any pain. EYES: The sclera were anicteric and conjunctiva were pink and moist. Extraocular movements were intact and pupils were equal round and reactive to light. E yelids were unremarkable. PULMONARY: Unlabored respirations. Good breath sounds bilaterally. No audible rales rhonchi or wheezing was noted. CARDIOVASCULAR: There is a regular rate and rhythm without any murmurs gallops or rubs. ABDOMEN: Soft and nontender with normal bowel sounds. No palpable organomegaly was noted. There is no palpable pulsatile mass. SKIN: Skin is clear with no lesions or rashes and otherwise unremarkable. NEUROLOGIC: Patient is alert and oriented 2. Cranial nerves II through XII are grossly intact. Motor and sensory are also intact. Normal speech, volume and content. Symmetrical smile. MUSCULOSKELETAL: Normal extremities with adequate strength and full range of motion. No lower extremity swelling or edema. No calf tenderness. LYMPHATICS: No significant lymphadenopathy is noted PSYCHIATRIC: Normal psychiatric evaluation. Limitations: no limitations Course Vital Signs 02/18/19 02/18/19 18:37 20:39 Temperature 98.5 F Pulse Rate 65 65 Respiratory 16 16 Rate Blood Pressure 138/74 143/73 O2 Sat by Pulse 98 98 Oximetry Medical Decision Making - Medical Decision Making EKG shows atrial fibrillation at 91 bpm QRS is 90 QT interval 370 QTC is 464 per patient's EKG shows no ST segment elevation or depression. Patient's urine showed urinary tract infection. I gave the patient gram of Rocephin in the emergency department. I will send the patient home on antibiotics. - Lab Data Result diagrams: 02/18/19 18:40 02/18/19 18:40 Lab Results 02/18/19 02/18/19 02/18/19 Range/Units 18:40 18:40 20:50 WBC 9.2 (3.8-10.6) k/uL RBC 4.34 (3.80-5.40) m/uL Hgb 13.3 (11.4-16.0) gm/dL Hct 39.3 (34.0-46.0) % MCV 90.6 (80.0-100.0) fL MCH 30.7 (25.0-35.0) pg MCHC 33.8 (31.0-37.0) g/dL RDW 15.2 (11.5-15.5) % Plt Count 212 (150-450) k/uL Neutrophils % 75 % Lymphocytes % 16 % Monocytes % 6 % Eosinophils % 1 % Basophils % 1 % Neutrophils # 6.9 (1.3-7.7) k/uL Lymphocytes # 1.5 (1.0-4.8) k/uL Monocytes # 0.6 (0-1.0) k/uL Eosinophils # 0.1 (0-0.7) k/uL Basophils # 0.1 (0-0.2) k/uL Sodium 143 (137-145) mmol/L Potassium 3.9 (3.5-5.1) mmol/L Chloride 105 (98-107) mmol/L Carbon Dioxide 26 (22-30) mmol/L Anion Gap 12 mmol/L BUN 17 (7-17) mg/dL Creatinine 1.18 H (0.52-1.04) mg/dL Est GFR (CKD-EPI)AfAm 50 (>60 ml/min/1.73 sqM) Est GFR (CKD-EPI)NonAf 43 (>60 ml/min/1.73 sqM) Glucose 109 H (74-99) mg/dL Calcium 9.6 (8.4-10.2) mg/dL Magnesium 2.2 (1.6-2.3) mg/dL Total Bilirubin 0.7 (0.2-1.3) mg/dL AST 23 (14-36) U/L ALT 15 (9-52) U/L Alkaline Phosphatase 88 (38-126) U/L Total Protein 7.1 (6.3-8.2) g/dL Albumin 4.0 (3.5-5.0) g/dL Urine Color Yellow Urine Appearance Cloudy H (Clear) Urine pH 5.5 (5.0-8.0) Ur Specific [place] 1.015 (1.001-1.035) Urine Protein Trace H (Negative) Urine Glucose (UA) Negative (Negative) Urine Ketones Negative (Negative) Urine Blood Small H (Negative) Urine Nitrite Negative (Negative) Urine Bilirubin Negative (Negative) Urine Urobilinogen 2.0 (<2.0) mg/dL Ur Leukocyte Esterase Moderate H (Negative) Urine RBC 3 (0-5) /hpf Urine WBC 45 H (0-5) /hpf Urine WBC Clumps Few H (None) /hpf Ur Squamous Epith Cells 11 H (0-4) /hpf Urine Bacteria Moderate H (None) /hpf Hyaline Casts 28 H (0-2) /lpf Urine Mucus Occasional H (None) /hpf Disposition Clinical Impression: Urinary tract infection Disposition: HOME SELF-CARE Condition: Good Instructions (If sedation given, give patient instructions): Urinary Tract Infection in Women (ED) Prescriptions: Nitrofurantoin Monohyd/M-Cryst [Macrobid] 100 mg PO Q12HR #14 cap Is patient prescribed a controlled substance at d/c from ED?: No Referrals: Emile Gregory MD [Primary Care Provider] - 1-2 days Time of Disposition: 21:22
[2019-02-18 20:08] LABS: Calcium 9.6 mg/dL (8.4-10.2); Magnesium 2.2 mg/dL (1.6-2.3); Potassium 3.9 mmol/L (3.5-5.1); Total Bilirubin 0.7 mg/dL (0.2-1.3); Total Protein 7.1 g/dL (6.3-8.2)
--- NOTE | 2019-02-18 20:24 | XR ---
EXAMINATION TYPE: XR chest 2V DATE OF EXAM: 02/18/2019 COMPARISON: 09/05/2018 HISTORY: Weakness TECHNIQUE: Frontal and lateral views of the chest are obtained. FINDINGS: Heart and mediastinum are normal. Lungs are clear. There are chest leads. Bony thorax is i ntact. There is osteopenia. IMPRESSION: No active cardiopulmonary disease. Normal heart. No change.
[2019-02-18 20:41] VITALS: BP 143/73
[2019-02-18 21:16] LABS: Appearance,Urine Cloudy (Clear); Bacteria,Urine Moderate /hpf; Bilirubin,Urine Negative (Negative); Blood,Urine Small (Negative); Color,Urine Yellow; Glucose,Urine (UA) Negative (Negative); Hyaline Casts,Urine 28 /lpf (0-2); Ketones,Urine Negative (Negative); Leukocyte Esterase,Urine Moderate (Negative); Mucus,Urine Occasional /hpf; Nitrite,Urine Negative (Negative); PH, Urine 5.5 (5.0-8.0); Protein,Urine Trace (Negative); RBC,Urine 3 /hpf (0-5); Specific Gravity,Urine 1.015 (1.001-1.035); Squamous Epithelial Cell,Urine 11 /hpf (0-4); WBC,Urine 45 /hpf (0-5)
[2019-02-18] MEDS ORDERED: cefTRIAXone IN SWFI 1,000 MG/10 ML SYRINGE IVP STA (21:18)
== END 2019-02-18 22:41 | disposition home or self-care (01) ==
LOC: EC 18:33
DX: N39.0 Urinary tract infection, site not specified (principal); I48.91 Unspecified atrial fibrillation; R06.02 Shortness of breath; E78.5 Hyperlipidemia, unspecified; I10 Essential (primary) hypertension; E03.9 Hypothyroidism, unspecified; F32.9 Major depressive disorder, single episode, unspecified; F41.9 Anxiety disorder, unspecified; Z88.0 Allergy status to penicillin; Z88.2 Allergy status to sulfonamides; Z91.048 Other nonmedicinal substance allergy status; Z79.890 Hormone replacement therapy; Z79.899 Other long term (current) drug therapy; Z86.73 Personal history of transient ischemic attack (TIA), and cerebral infarction without residual deficits; Z98.818 Other dental procedure status; Z82.49 Family history of ischemic heart disease and other diseases of the circulatory system
CPT/HCPCS: 99285; 96374; 36415; 93005; 80053; 83735; 85025; 81001; 71046; J0696

== ENCOUNTER 2019-04-05 02:18 | Emergency (ER) | payer MEDICARE, OTHER ==
[2019-04-05 02:35] VITALS: TEMP 97
[2019-04-05] MEDS ORDERED: SODIUM CHLORIDE 0.9% 1,000 ML IV STA (02:48)
[2019-04-05] MEDS ORDERED: SODIUM CHLORIDE 0.9% 500 ML 500 ML IV STA (02:48)
--- NOTE | 2019-04-05 03:03 | ED ---
General Adult HPI - General Source: patient, EMS Mode of arrival: EMS Limitations: no limitations <Marlene Dykes - Last Filed: 04/05/19 02:58> <Cachorro Vega - Last Filed: 04/05/19 06:12> - General Chief complaint: Weakness Stated complaint: not feeling well Time Seen by Provider: 04/05/19 02:26 - History of Present Illness Initial comments: 84-year-old female patient presents to the emergency department today for evaluation after sleeping all day today. Patient lives at [facility] which does have nursing aides available. Patient states she woke up this evening to realize she had slept all day. States she did not eat or drink anything. States she called for help and when none came she called the ambulance to bring her in. Patient was found to be incontinent of urine and stool. Patient is curr ently denying any symptoms or concerns other than dry mouth. She denies any headache, chest pain, abdominal pain, shortness of breath, fever, or chills. Denies any hematuria, dysuria, urinary frequency, or urinary urgency. Patient denies any recent rash, nausea, vomiting, diarrhea, constipation, back pain, numbness, tingling, dizziness, weakness, visual changes, or any other complaints. (Marlene Dykes) - Related Data Home Medications Medication Instructions Recorded Confirmed ALPRAZolam [Xanax] 0.25 mg PO TID PRN 08/05/18 02/18/19 Levothyroxine Sodium [Synthroid] 88 mcg PO DAILY 08/05/18 02/18/19 Metoprolol Tartrate [Lopressor] 25 mg PO BID 08/05/18 02/18/19 Furosemide [Lasix] 20 mg PO DAILY 09/05/18 02/18/19 Simvastatin [Zocor] 10 mg PO HS 09/05/18 02/18/19 DULoxetine HCL [Cymbalta] 30 mg PO HS 02/15/19 02/18/19 Previous Rx's Medication Instructions Recorded Pantoprazole [Protonix] 40 mg PO DAILY 30 Days #30 07/30/17 tablet. Apixaban [Eliquis] 5 mg PO BID #60 tab 11/15/17 Nitrofurantoin Monohyd/M-Cryst 100 mg PO Q12HR #14 cap 02/18/19 [Macrobid] Nitrofurantoin Monohyd/M-Cryst 100 mg PO Q12HR #6 cap 04/05/19 [Macrobid] Allergies Allergy/AdvReac Type Severity Reaction Status Date / Time Penicillins Allergy Rash/Hives Verified 02/18/19 18:55 Sulfa (Sulfonamide Allergy Unknown Verified 02/18/19 18:55 Antibiotics) Childhood adhesive tape AdvReac PEELS SKIN Verified 02/18/19 18:55 Review of Systems ROS Other: All systems not noted in ROS Statement are negative. <Marlene Dykes - Last Filed: 04/05/19 02:58> ROS Other: All systems not noted in ROS Statement are negative. <Cachorro Vega - Last Filed: 04/05/19 06:12> ROS Statement: Those systems with pertinent positive or pertinent negative responses have been documented in the HPI. 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 History of Any Multi-Drug Resistant Organisms: None Reported Past Surgical History: Section, Cholecystectomy Additional Past Surgical History / Comment(s): jaw and pelvis surgery from accident many years ago, L cataract removed. Past Anesthesia/Blood Transfusion Reactions: Postoperative Nausea & Vomiting (PONV) Additional Past Anesthesia/Blood Transfusion Reaction / Comment(s): Pt believes she received blood after her accident many yrs ago without reaction. Past Psychological History: Anxiety, Depression Smoking Status: Never smoker Past Alcohol Use History: None Reported Past Drug Use History: None Reported - Past Family History Mother Family Medical History: CVA/TIA Additional Family Medical History / Comment(s): Mother of a CVA at the age of 92 yrs. She also had a bowel disorder Father Family Medical History: Diabetes Mellitus, Myocardial Infarction ([place]) Additional Family Medical History / Comment(s): Father of a [place] at the age of 88yrs. <Marlene Dykes - Last Filed: 04/05/19 02:58> General Exam Limitations: no limitations General appearance: alert, in no apparent distress, other (This is a well- developed, well-nourished elderly female patient in no acute distress. Vital signs upon presentation are temperature 97.0F, pulse 103, respirations 16, blood pressure 129/83, pulse ox 97% on room air.) Eye exam: Present: normal appearance, PERRL, EOMI. Absent: scleral icterus, conjunctival injection, periorbital swelling ENT exam: Present: normal exam, normal oropharynx, mucous membranes moist Respiratory exam: Present: normal lung sounds bilaterally. Absent: respiratory distress, wheezes, rales, rhonchi, stridor Cardiovascular Exam: Present: tachycardia, irregular rhythm, normal heart sounds. Absent: systolic murmur, diastolic murmur, rubs, gallop, clicks GI/Abdominal exam: Present: soft, normal bowel sounds. Absent: distended, tenderness, guarding, rebound, rigid Neurological exam: Present: alert, CN II-XII intact. Absent: oriented X3 (Oriented 2) Psychiatric exam: Present: normal affect, normal mood Skin exam: Present: warm, dry, intact, normal color. Absent: rash <Marlene Dykes - Last Filed: 04/05/19 02:58> Course Vital Signs 04/05/19 02:32 Temperature 97 F L Pulse Rate 103 H Respiratory 16 Rate Blood Pressure 129/83 O2 Sat by Pulse 97 Oximetry EKG Findings - EKG Comments: EKG Findings:: EKG obtained at nh to 33 shows a truck fibrillation with an incomplete right bundle branch block. Ventricular rate is 97, QRS duration 94, QT 380, QTc 482. <Marlene Dykes - Last Filed: 04/05/19 02:58> Medical Decision Making - Lab Data Result diagrams: 04/05/19 02:41 04/05/19 02:41 <Cachorro Vega - Last Filed: 04/05/19 06:12> - Medical Decision Making Patient is an 84-year-old woman here for fatigue. We did recommend that she stay for monitoring and observation. Patient states that she feels like she just wants to go home. Discussed that it is possible to miss myocardial infarction, ischemic stroke, other diagnoses. The patient states that she can accept that risk. She is going to follow with her primary physician ANGELY. Patient will return if not feeling better or if any new symptoms develop. (Cachorro [place]) - Lab Data Lab Results 04/05/19 04/05/19 04/05/19 Range/Units 02:41 02:41 02:41 WBC 12.2 H (3.8-10.6) k/uL RBC 4.59 (3.80-5.40) m/uL Hgb 13.9 (11.4-16.0) gm/dL Hct 41.6 (34.0-46.0) % MCV 90.8 (80.0-100.0) fL MCH 30.2 (25.0-35.0) pg MCHC 33.3 (31.0-37.0) g/dL RDW 13.4 (11.5-15.5) % Plt Count 266 (150-450) k/uL Neutrophils % 71 % Lymphocytes % 21 % Monocytes % 5 % Eosinophils % 1 % Basophils % 0 % Neutrophils # 8.6 H (1.3-7.7) k/uL Lymphocytes # 2.6 (1.0-4.8) k/uL Monocytes # 0.6 (0-1.0) k/uL Eosinophils # 0.1 (0-0.7) k/uL Basophils # 0.1 (0-0.2) k/uL PT (9.0-12.0) sec INR (<1.2) APTT (22.0-30.0) sec Sodium 143 (137-145) mmol/L Potassium 3.5 (3.5-5.1) mmol/L Chloride 103 (98-107) mmol/L Carbon Dioxide 28 (22-30) mmol/L Anion Gap 12 mmol/L BUN 17 (7-17) mg/dL Creatinine 1.08 H (0.52-1.04) mg/dL Est GFR (CKD-EPI)AfAm 55 (>60 ml/min/1.73 sqM) Est GFR (CKD-EPI)NonAf 48 (>60 ml/min/1.73 sqM) Glucose 98 (74-99) mg/dL Plasma Lactic Acid Rahul 1.8 (0.7-2.0) mmol/L Calcium 10.3 H (8.4-10.2) mg/dL Magnesium 2.0 (1.6-2.3) mg/dL Total Bilirubin 0.8 (0.2-1.3) mg/dL AST 27 (14-36) U/L ALT 17 (9-52) U/L Alkaline Phosphatase 102 (38-126) U/L Troponin I (0.000-0.034) ng/mL Total Protein 7.5 (6.3-8.2) g/dL Albumin 4.4 (3.5-5.0) g/dL Urine Color Urine Appearance (Clear) Urine pH (5.0-8.0) Ur Specific [place] (1.001-1.035) Urine Protein (Negative) Urine Glucose (UA) (Negative) Urine Ketones (Negative) Urine Blood (Negative) Urine Nitrite (Negative) Urine Bilirubin (Negative) Urine Urobilinogen (<2.0) mg/dL Ur Leukocyte Esterase (Negative) Urine RBC (0-5) /hpf Urine WBC (0-5) /hpf Urine WBC Clumps (None) /hpf Ur Squamous Epith Cells (0-4) /hpf Urine Bacteria (None) /hpf Hyaline Casts (0-2) /lpf Urine Mucus (None) /hpf 04/05/19 04/05/19 04/05/19 Range/Units 02:41 02:41 03:41 WBC (3.8-10.6) k/uL RBC (3.80-5.40) m/uL Hgb (11.4-16.0) gm/dL Hct (34.0-46.0) % MCV (80.0-100.0) fL MCH (25.0-35.0) pg MCHC (31.0-37.0) g/dL RDW (11.5-15.5) % Plt Count (150-450) k/uL Neutrophils % % Lymphocytes % % Monocytes % % Eosinophils % % Basophils % % Neutrophils # (1.3-7.7) k/uL Lymphocytes # (1.0-4.8) k/uL Monocytes # (0-1.0) k/uL Eosinophils # (0-0.7) k/uL Basophils # (0-0.2) k/uL PT 11.1 (9.0-12.0) sec INR 1.0 (<1.2) APTT 23.7 (22.0-30.0) sec Sodium (137-145) mmol/L Potassium (3.5-5.1) mmol/L Chloride (98-107) mmol/L Carbon Dioxide (22-30) mmol/L Anion Gap mmol/L BUN (7-17) mg/dL Creatinine (0.52-1.04) mg/dL Est GFR (CKD-EPI)AfAm (>60 ml/min/1.73 sqM) Est GFR (CKD-EPI)NonAf (>60 ml/min/1.73 sqM) Glucose (74-99) mg/dL Plasma Lactic Acid Rahul (0.7-2.0) mmol/L Calcium (8.4-10.2) mg/dL Magnesium (1.6-2.3) mg/dL Total Bilirubin (0.2-1.3) mg/dL AST (14-36) U/L ALT (9-52) U/L Alkaline Phosphatase (38-126) U/L Troponin I 0.015 (0.000-0.034) ng/mL Total Protein (6.3-8.2) g/dL Albumin (3.5-5.0) g/dL Urine Color Yellow Urine Appearance Cloudy H (Clear) Urine pH 5.0 (5.0-8.0) Ur Specific [place] 1.019 (1.001-1.035) Urine Protein Trace H (Negative) Urine Glucose (UA) Negative (Negative) Urine Ketones Negative (Negative) Urine Blood Small H (Negative) Urine Nitrite Negative (Negative) Urine Bilirubin 1+ H (Negative) Urine Urobilinogen 4.0 (<2.0) mg/dL Ur Leukocyte Esterase Large H (Negative) Urine RBC 3 (0-5) /hpf Urine WBC 18 H (0-5) /hpf Urine WBC Clumps Few H (None) /hpf Ur Squamous Epith Cells 1 (0-4) /hpf Urine Bacteria Rare H (None) /hpf Hyaline Casts 102 H (0-2) /lpf Urine Mucus Occasional H (None) /hpf Disposition <Marlene Dykes - Last Filed: 04/05/19 02:58> Is patient prescribed a controlled substance at d/c from ED?: No <Cachorro Vega - Last Filed: 04/05/19 06:12> Clinical Impression: Atrial fibrillation, Urinary tract infection, Fatigue Disposition: Left Against Medical Advice Condition: Undetermined Prescriptions: Nitrofurantoin Monohyd/M-Cryst [Macrobid] 100 mg PO Q12HR #6 cap Referrals: Emile Gregory MD [Primary Care Provider] - 1-2 days
[2019-04-05 03:19] LABS: Basophils # (A) 0.1 k/uL (0-0.2); Basophils % (A) 0 %; Eosinophils # (A) 0.1 k/uL (0-0.7); Eosinophils % (A) 1 %; HCT 41.6 % (34.0-46.0); HGB 13.9 gm/dL (11.4-16.0); Lymphocytes # (A) 2.6 k/uL (1.0-4.8); Lymphocytes % (A) 21 %; MCH 30.2 pg (25.0-35.0); MCHC 33.3 g/dL (31.0-37.0); MCV 90.8 fL (80.0-100.0); Monocytes # (A) 0.6 k/uL (0-1.0); Monocytes % (A) 5 %; Neutrophils # (A) 8.6 k/uL (1.3-7.7); Neutrophils % (A) 71 %; Platelet Count 266 k/uL (150-450); RBC 4.59 m/uL (3.80-5.40); RDW 13.4 % (11.5-15.5); WBC 12.2 k/uL (3.8-10.6)
[2019-04-05 03:26] LABS: Partial Thromboplastin Time 23.7 sec (22.0-30.0); Prothrombin Time 11.1 sec (9.0-12.0)
[2019-04-05 03:27] LABS: Albumin 4.4 g/dL (3.5-5.0); Calcium 10.3 mg/dL (8.4-10.2); Potassium 3.5 mmol/L (3.5-5.1); Total Bilirubin 0.8 mg/dL (0.2-1.3); Total Protein 7.5 g/dL (6.3-8.2)
--- NOTE | 2019-04-05 03:38 | XR ---
EXAMINATION TYPE: XR chest 2V DATE OF EXAM: 04/05/2019 COMPARISON: 02/18/2019 HISTORY: Weakness TECHNIQUE: Frontal and lateral views of the chest are obtained. FINDINGS: Heart is normal. Lungs are clear of infiltrate. There are chest leads. Costophrenic angles are clear. Bony thorax is intact. IMPRESSION: No active cardiopulmonary disease. Normal heart. No change.
[2019-04-05 03:53] LABS: Appearance,Urine Cloudy (Clear); Bacteria,Urine Rare /hpf; Bilirubin,Urine 1+ (Negative); Blood,Urine Small (Negative); Color,Urine Yellow; Glucose,Urine (UA) Negative (Negative); Hyaline Casts,Urine 102 /lpf (0-2); Ketones,Urine Negative (Negative); Leukocyte Esterase,Urine Large (Negative); Mucus,Urine Occasional /hpf; Nitrite,Urine Negative (Negative); Protein,Urine Trace (Negative); RBC,Urine 3 /hpf (0-5); Specific Gravity,Urine 1.019 (1.001-1.035); Squamous Epithelial Cell,Urine 1 /hpf (0-4); WBC,Urine 18 /hpf (0-5)
[2019-04-05] MEDS ORDERED: NITROFURANTOIN MONOHYD/M-CRYST 100 MG CAP PO STA (06:09)
[2019-04-05 06:18] VITALS: BP 145/88; PULSE 90; RESP 18
== END 2019-04-05 06:44 | disposition left against medical advice (07) ==
LOC: EC 02:18
DX: I48.91 Unspecified atrial fibrillation (principal); N39.0 Urinary tract infection, site not specified; K21.9 Gastro-esophageal reflux disease without esophagitis; I10 Essential (primary) hypertension; E78.5 Hyperlipidemia, unspecified; F32.9 Major depressive disorder, single episode, unspecified; F41.9 Anxiety disorder, unspecified; E03.9 Hypothyroidism, unspecified; Z79.890 Hormone replacement therapy; Z79.899 Other long term (current) drug therapy; Z88.0 Allergy status to penicillin; Z88.2 Allergy status to sulfonamides; Z91.048 Other nonmedicinal substance allergy status; Z86.73 Personal history of transient ischemic attack (TIA), and cerebral infarction without residual deficits
CPT/HCPCS: 36415; 71046; 80053; 81001; 83605; 83735; 84484; 85025; 85610; 85730; 93005; 96360; 99285

== ENCOUNTER 2019-04-16 21:05 | Emergency (ER) | payer MEDICARE, OTHER ==
[2019-04-16] MEDS ORDERED: SODIUM CHLORIDE 0.9% 1,000 ML IV ONE (21:40)
--- NOTE | 2019-04-16 21:52 | ED ---
General Adult HPI - General Chief complaint: Nausea/Vomiting/Diarrhea Stated complaint: Not feeling well,nausea Time Seen by Provider: 04/16/19 21:24 Source: patient, EMS, RN notes reviewed, old records reviewed Mode of arrival: EMS - History of Present Illness Initial comments: 84-year-old female patient presents to ED complaining of not feeling well, feeling very dehydrated. Persistent ongoing since this morning. Patient was assisted living facility, they reported that she was having dry heaves at home. Denies any pain at this time. Denies any other complaints. Systemic: Pt denies fatigue, fever/chills, rash. Pt denies weakness, night sweats, weight loss. Neuro: Pt denies headache, visual disturbances, syncope or pre-syncope. HEENT: Pt denies ocular discharge or irritation, otalgia, rhinorrhea, pharyngitis or notable lymphadenopathy. Cardiopulmonary: Pt denies chest pain, SOB, heart palpitations, dyspnea on exertion. Abdominal/GI: Pt denies abdominal pain, n/v/d. : Pt denies dysuria, burning w/ urination, frequency/urgency. Denies new onset urinary or bowel incontinence. MSK: Pt denies myalgia, loss of strength or function in extremities. Neuro: Pt denies new onset weakness, paresthesias. - Related Data Home Medications Medication Instructions Recorded Confirmed ALPRAZolam [Xanax] 0.25 mg PO TID PRN 08/05/18 02/18/19 Levothyroxine Sodium [Synthroid] 88 mcg PO DAILY 08/05/18 02/18/19 Metoprolol Tartrate [Lopressor] 25 mg PO BID 08/05/18 02/18/19 Furosemide [Lasix] 20 mg PO DAILY 09/05/18 02/18/19 Simvastatin [Zocor] 10 mg PO HS 09/05/18 02/18/19 DULoxetine HCL [Cymbalta] 30 mg PO HS 02/15/19 02/18/19 Previous Rx's Medication Instructions Recorded Pantoprazole [Protonix] 40 mg PO DAILY 30 Days #30 07/30/17 tablet. Apixaban [Eliquis] 5 mg PO BID #60 tab 11/15/17 Nitrofurantoin Monohyd/M-Cryst 100 mg PO Q12HR #14 cap 02/18/19 [Macrobid] Nitrofurantoin Monohyd/M-Cryst 100 mg PO Q12HR #6 cap 04/05/19 [Macrobid] Nitrofurantoin Monohyd/M-Cryst 100 mg PO Q12HR 5 Days #10 cap 04/17/19 [Macrobid] Allergies Allergy/AdvReac Type Severity Reaction Status Date / Time Penicillins Allergy Rash/Hives Verified 02/18/19 18:55 Sulfa (Sulfonamide Allergy Unknown Verified 02/18/19 18:55 Antibiotics) Childhood adhesive tape AdvReac PEELS SKIN Verified 02/18/19 18:55 Review of Systems ROS Statement: Those systems with pertinent positive or pertinent negative responses have been documented in the HPI. ROS Other: All systems not noted in ROS Statement are negative. 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 History of Any Multi-Drug Resistant Organisms: None Reported Past Surgical History: Section, Cholecystectomy Additional Past Surgical History / Comment(s): jaw and pelvis surgery from accident many years ago, L cataract removed. Past Anesthesia/Blood Transfusion Reactions: Postoperative Nausea & Vomiting (PONV) Additional Past Anesthesia/Blood Transfusion Reaction / Comment(s): Pt believes she received blood after her accident many yrs ago without reaction. Past Psychological History: Anxiety, Depression Smoking Status: Never smoker Past Alcohol Use History: None Reported Past Drug Use History: None Reported - Past Family History Mother Family Medical History: CVA/TIA Additional Family Medical History / Comment(s): Mother of a CVA at the age of 92 yrs. She also had a bowel disorder Father Family Medical History: Diabetes Mellitus, Myocardial Infarction ([place]) Additional Family Medical History / Comment(s): Father of a [place] at the age of 88yrs. General Exam - General Exam Comments Initial Comments: Constitutional: NAD, AOX3, Pt has pleasant affect. HEENT: NC/AT, trachea midline, neck supple, no lymphadenopathy. Posterior pharynx non erythematous, without exudates. External ears appear normal, without discharge. Mucous membranes moist. Eyes PERRLA, EOM intact. There is no scleral icterus. No pallor noted. Cardiopulmonary: RRR, no murmurs, rubs or gallops, no JVD noted. Lungs CTAB in anterior and posterior interiano. No peripheral edema. Abdominal exam: Abdomen soft and non-distended. Abdomen non-tender to palpation in all 4 quadrants. Bowel sounds active in LLQ. No hepatosplenomegaly. No ecchy mosis Neuro: CN II-XII intact. No nuchal rigidity. No raccon eyes, no gamboa sign, no hemotympanum. No cervical spinal tenderness. MSK: No posterior calf tenderness bilaterally, homans sign negative bilaterally. Posterior tibialis and radial pulse +2 bilaterally. Sensation intact in upper and lower extremities. Full active ROM in upper and lower extremities, 5/5 stregnth. Course Vital Signs 04/16/19 04/16/19 21:09 22:38 Temperature 98 F Pulse Rate 95 92 Respiratory 16 18 Rate Blood Pressure 107/57 109/86 O2 Sat by Pulse 98 98 Oximetry Medical Decision Making - Medical Decision Making 85-year-old female patient presents to ED after several nursing facility, patient reports that she had eaten all day, felt generally unwell, was having dry heaves at home. Patient will signs are stable, afebrile. Physical exam that is acute pathology. Neurologic exam within normal limits. Laboratory investigations displayed rating of 1.5 once daily elevated from baseline. Mild urinary tract infection. Otherwise non-impressive. CT chest x-ray KUB did not display acute process. EKG non-ischemic. Patient feeling much improved with fluid administration, requesting go home. She'll be discharged on Macrobid. Case discussed with Dr. Richter. - Lab Data Result diagrams: 04/16/19 22:15 04/16/19 22:00 Lab Results 04/16/19 04/16/19 04/16/19 Range/Units 22:00 22:00 22:00 WBC (3.8-10.6) k/uL RBC (3.80-5.40) m/uL Hgb (11.4-16.0) gm/dL Hct (34.0-46.0) % MCV (80.0-100.0) fL MCH (25.0-35.0) pg MCHC (31.0-37.0) g/dL RDW (11.5-15.5) % Plt Count (150-450) k/uL Neutrophils % % Lymphocytes % % Monocytes % % Eosinophils % % Basophils % % Neutrophils # (1.3-7.7) k/uL Lymphocytes # (1.0-4.8) k/uL Monocytes # (0-1.0) k/uL Eosinophils # (0-0.7) k/uL Basophils # (0-0.2) k/uL PT 11.8 (9.0-12.0) sec INR 1.1 (<1.2) APTT 26.2 (22.0-30.0) sec Sodium 138 (137-145) mmol/L Potassium 4.0 (3.5-5.1) mmol/L Chloride 99 (98-107) mmol/L Carbon Dioxide 27 (22-30) mmol/L Anion Gap 12 mmol/L BUN 21 H (7-17) mg/dL Creatinine 1.51 H (0.52-1.04) mg/dL Est GFR (CKD-EPI)AfAm 37 (>60 ml/min/1.73 sqM) Est GFR (CKD-EPI)NonAf 32 (>60 ml/min/1.73 sqM) Glucose 120 H (74-99) mg/dL Calcium 10.0 (8.4-10.2) mg/dL Phosphorus 4.2 (2.5-4.5) mg/dL Magnesium 2.0 (1.6-2.3) mg/dL Total Bilirubin 1.3 (0.2-1.3) mg/dL AST 33 (14-36) U/L ALT 17 (9-52) U/L Alkaline Phosphatase 81 (38-126) U/L Ammonia 12 (<30) umol/L Troponin I (0.000-0.034) ng/mL Total Protein 7.9 (6.3-8.2) g/dL Albumin 4.4 (3.5-5.0) g/dL Urine Color Urine Appearance (Clear) Urine pH (5.0-8.0) Ur Specific [place] (1.001-1.035) Urine Protein (Negative) Urine Glucose (UA) (Negative) Urine Ketones (Negative) Urine Blood (Negative) Urine Nitrite (Negative) Urine Bilirubin (Negative) Urine Urobilinogen (<2.0) mg/dL Ur Leukocyte Esterase (Negative) Urine RBC (0-5) /hpf Urine WBC (0-5) /hpf Urine WBC Clumps (None) /hpf Urine Bacteria (None) /hpf Hyaline Casts (0-2) /lpf Urine Mucus (None) /hpf Urine Opiates Screen (NotDetected) Ur Oxycodone Screen (NotDetected) Urine Methadone Screen (NotDetected) Ur Propoxyphene Screen (NotDetected) Ur Barbiturates Screen (NotDetected) U Tricyclic Antidepress (NotDetected) Ur Phencyclidine Scrn (NotDetected) Ur Amphetamines Screen (NotDetected) U Methamphetamines Scrn (NotDetected) U Benzodiazepines Scrn (NotDetected) Urine Cocaine Screen (NotDetected) U Marijuana (THC) Screen (NotDetected) 04/16/19 04/16/19 04/16/19 Range/Units 22:00 22:15 23:43 WBC 14.4 H (3.8-10.6) k/uL RBC 4.88 (3.80-5.40) m/uL Hgb 14.4 (11.4-16.0) gm/dL Hct 44.0 (34.0-46.0) % MCV 90.2 (80.0-100.0) fL MCH 29.6 (25.0-35.0) pg MCHC 32.8 (31.0-37.0) g/dL RDW 13.4 (11.5-15.5) % Plt Count 288 (150-450) k/uL Neutrophils % 82 % Lymphocytes % 11 % Monocytes % 4 % Eosinophils % 1 % Basophils % 1 % Neutrophils # 11.7 H (1.3-7.7) k/uL Lymphocytes # 1.6 (1.0-4.8) k/uL Monocytes # 0.6 (0-1.0) k/uL Eosinophils # 0.2 (0-0.7) k/uL Basophils # 0.2 (0-0.2) k/uL PT (9.0-12.0) sec INR (<1.2) APTT (22.0-30.0) sec Sodium (137-145) mmol/L Potassium (3.5-5.1) mmol/L Chloride (98-107) mmol/L Carbon Dioxide (22-30) mmol/L Anion Gap mmol/L BUN (7-17) mg/dL Creatinine (0.52-1.04) mg/dL Est GFR (CKD-EPI)AfAm (>60 ml/min/1.73 sqM) Est GFR (CKD-EPI)NonAf (>60 ml/min/1.73 sqM) Glucose (74-99) mg/dL Calcium (8.4-10.2) mg/dL Phosphorus (2.5-4.5) mg/dL Magnesium (1.6-2.3) mg/dL Total Bilirubin (0.2-1.3) mg/dL AST (14-36) U/L ALT (9-52) U/L Alkaline Phosphatase (38-126) U/L Ammonia (<30) umol/L Troponin I 0.027 (0.000-0.034) ng/mL Total Protein (6.3-8.2) g/dL Albumin (3.5-5.0) g/dL Urine Color Yellow Urine Appearance Cloudy H (Clear) Urine pH 5.5 (5.0-8.0) Ur Specific [place] 1.017 (1.001-1.035) Urine Protein 1+ H (Negative) Urine Glucose (UA) Negative (Negative) Urine Ketones Negative (Negative) Urine Blood Small H (Negative) Urine Nitrite Negative (Negative) Urine Bilirubin Negative (Negative) Urine Urobilinogen 3.0 (<2.0) mg/dL Ur Leukocyte Esterase Moderate H (Negative) Urine RBC 3 (0-5) /hpf Urine WBC 17 H (0-5) /hpf Urine WBC Clumps Few H (None) /hpf Urine Bacteria Occasional H (None) /hpf Hyaline Casts 74 H (0-2) /lpf Urine Mucus Moderate H (None) /hpf Urine Opiates Screen Not Detected (NotDetected) Ur Oxycodone Screen Not Detected (NotDetected) Urine Methadone Screen Not Detected (NotDetected) Ur Propoxyphene Screen Not Detected (NotDetected) Ur Barbiturates Screen Not Detected (NotDetected) U Tricyclic Antidepress Not Detected (NotDetected) Ur Phencyclidine Scrn Not Detected (NotDetected) Ur Amphetamines Screen Not Detected (NotDetected) U Methamphetamines Scrn Not Detected (NotDetected) U Benzodiazepines Scrn Not Detected (NotDetected) Urine Cocaine Screen Not Detected (NotDetected) U Marijuana (THC) Screen Not Detected (NotDetected) - EKG Data -: EKG Interpreted by Me (and Dr. Richter) EKG Comments: Ventricular rate 97, QRS 108, QT/QTc 432 satisfied 48. History of ablation, no significant change from prior, no concern for acute ischemia. Disposition Clinical Impression: Dehydration, UTI (urinary tract infection) Disposition: HOME SELF-CARE Condition: Stable Instructions (If sedation given, give patient instructions): Urinary Tract Infection in Women (ED), Dehydration (ED) Additional Instructions: Take medication as directed. Continue to drink lots of liquids. Follow up with primary care provider. Return to ER if condition worsens. Prescriptions: Nitrofurantoin Monohyd/M-Cryst [Macrobid] 100 mg PO Q12HR 5 Days #10 cap Is patient prescribed a controlled substance at d/c from ED?: No Referrals: Emile Gregory MD [Primary Care Provider] - 1-2 days
--- NOTE | 2019-04-16 22:28 | CT ---
EXAMINATION TYPE: CT brain wo con DATE OF EXAM: 04/16/2019 COMPARISON: 09/05/2018 HISTORY: Altered mental status. CT DLP: 1099.4 mGycm Automated exposure control for dose reduction was used. FINDINGS: There is cerebral atrophy. There is old right temporal and posterior frontal lobe cortical infarct. T here is no mass effect nor midline shift. There is no sign of intracranial hemorrhage. The calvarium is intact. IMPRESSION: MODERATE ATROPHY. 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 NO ACUTE INTRACRANIAL ABNORMALIT Y. NO CHANGE.
--- NOTE | 2019-04-16 22:29 | XR ---
EXAMINATION TYPE: XR chest 2V DATE OF EXAM: 04/16/2019 COMPARISON: April 05, 2019 HISTORY: Altered mental status TECHNIQUE: Frontal and lateral views of the chest are obtained. FINDINGS: Heart and mediastinum are normal. Lungs are clear. Diaphragm is normal. Bony thorax is int act. There are chest leads. IMPRESSION: No active cardiopulmonary disease. Normal heart.
[2019-04-16 22:36] LABS: Basophils # (A) 0.2 k/uL (0-0.2); Basophils % (A) 1 %; Eosinophils # (A) 0.2 k/uL (0-0.7); Eosinophils % (A) 1 %; HGB 14.4 gm/dL (11.4-16.0); Lymphocytes # (A) 1.6 k/uL (1.0-4.8); Lymphocytes % (A) 11 %; MCH 29.6 pg (25.0-35.0); MCHC 32.8 g/dL (31.0-37.0); MCV 90.2 fL (80.0-100.0); Mean Platelet Volume 8.7; Monocytes # (A) 0.6 k/uL (0-1.0); Monocytes % (A) 4 %; Neutrophils # (A) 11.7 k/uL (1.3-7.7); Neutrophils % (A) 82 %; Platelet Count 288 k/uL (150-450); RBC 4.88 m/uL (3.80-5.40); RDW 13.4 % (11.5-15.5); WBC 14.4 k/uL (3.8-10.6)
--- NOTE | 2019-04-16 22:37 | XR ---
EXAMINATION TYPE: XR KUB DATE OF EXAM: 04/16/2019 COMPARISON: 09/24/2015 HISTORY: Nausea TECHNIQUE: 2 views supine FINDINGS: There is no sign of intestinal obstruction or pneumoperitoneum. Fecal pattern is fairly nor mal. There are no pathologic calcifications over the kidneys. There are clips from cholecystectomy. L matthieu bases are clear. IMPRESSION: Nonacute abdomen. No adverse change.
[2019-04-16 22:39] VITALS: RESP 18
[2019-04-16 22:54] LABS: Total Bilirubin 1.3 mg/dL (0.2-1.3)
[2019-04-16 22:56] LABS: INR 1.1 (<1.2); Partial Thromboplastin Time 26.2 sec (22.0-30.0); Prothrombin Time 11.8 sec (9.0-12.0)
[2019-04-16 23:08] LABS: Albumin 4.4 g/dL (3.5-5.0); Phosphorus 4.2 mg/dL (2.5-4.5); Total Protein 7.9 g/dL (6.3-8.2)
[2019-04-17 00:16] LABS: Amphetamine Screen,Urine Not Detected (NotDetected); Appearance,Urine Cloudy (Clear); Bacteria,Urine Occasional /hpf; Barbiturate Screen,Urine Not Detected (NotDetected); Benzodiazepines Screen,Urine Not Detected (NotDetected); Bilirubin,Urine Negative (Negative); Blood,Urine Small (Negative); Cocaine Screen,Urine Not Detected (NotDetected); Color,Urine Yellow; Glucose,Urine (UA) Negative (Negative); Hyaline Casts,Urine 74 /lpf (0-2); Ketones,Urine Negative (Negative); Leukocyte Esterase,Urine Moderate (Negative); Methadone Screen, Urine Not Detected (NotDetected); Mucus,Urine Moderate /hpf; Nitrite,Urine Negative (Negative); Opiate Screen,Urine Not Detected (NotDetected); Oxycodone Screen, Urine Not Detected (NotDetected); PH, Urine 5.5 (5.0-8.0); Phencyclidine Screen,Urine Not Detected (NotDetected); Protein,Urine 1+ (Negative); RBC,Urine 3 /hpf (0-5); Specific Gravity,Urine 1.017 (1.001-1.035); Tricyclic Antidepressant,Urine Not Detected (NotDetected); Urn Cannabinoid Scrn Not Detected (NotDetected)
[2019-04-17] MEDS ORDERED: NITROFURANTOIN MONOHYD/M-CRYST 100 MG CAP PO STA (00:30)
[2019-04-17 00:38] VITALS: BP 130/66; PULSE 97; TEMP 98.2
== END 2019-04-17 01:39 | disposition home or self-care (01) ==
LOC: EC 21:05
DX: N39.0 Urinary tract infection, site not specified (principal); E86.0 Dehydration; L50.8 Other urticaria; F41.9 Anxiety disorder, unspecified; F32.9 Major depressive disorder, single episode, unspecified; E03.9 Hypothyroidism, unspecified; I10 Essential (primary) hypertension; E78.5 Hyperlipidemia, unspecified; I48.91 Unspecified atrial fibrillation; Z79.890 Hormone replacement therapy; Z79.899 Other long term (current) drug therapy; Z88.0 Allergy status to penicillin; Z88.2 Allergy status to sulfonamides; Z91.048 Other nonmedicinal substance allergy status; Z90.49 Acquired absence of other specified parts of digestive tract; Z86.73 Personal history of transient ischemic attack (TIA), and cerebral infarction without residual deficits
CPT/HCPCS: 36415; 70450; 71046; 74018; 80053; 80306; 81001; 82140; 83735; 84100; 84484; 85025; 85610; 85730; 87086; 93005; 96360; 99285

== ENCOUNTER 2019-04-19 12:55 | Inpatient (IN) | payer MEDICARE, OTHER ==
[2019-04-19] MEDS ORDERED: SODIUM CHLORIDE 0.9% 1,000 ML IV STA ×2 (13:33)
[2019-04-19] MEDS ORDERED: ONDANSETRON 4 MG/2 ML VIAL IVP STA (13:33)
[2019-04-19 13:44] LABS: Basophils # (A) 0.1 k/uL (0-0.2); Basophils % (A) 1 %; Eosinophils # (A) 0.5 k/uL (0-0.7); Eosinophils % (A) 4 %; HCT 34.5 % (34.0-46.0); HGB 11.6 gm/dL (11.4-16.0); Lymphocytes # (A) 0.8 k/uL (1.0-4.8); Lymphocytes % (A) 7 %; MCH 30.4 pg (25.0-35.0); MCHC 33.6 g/dL (31.0-37.0); MCV 90.4 fL (80.0-100.0); Mean Platelet Volume 8.3; Monocytes # (A) 0.5 k/uL (0-1.0); Monocytes % (A) 5 %; Neutrophils % (A) 83 %; Platelet Count 199 k/uL (150-450); RBC 3.82 m/uL (3.80-5.40); RDW 13.3 % (11.5-15.5)
[2019-04-19 13:55] LABS: Albumin 3.5 g/dL (3.5-5.0); Calcium 9.8 mg/dL (8.4-10.2); Potassium 2.9 mmol/L (3.5-5.1); Total Bilirubin 0.7 mg/dL (0.2-1.3); Total Protein 6.4 g/dL (6.3-8.2)
[2019-04-19 14:03] LABS: INR 1.1 (<1.2); Partial Thromboplastin Time 28.9 sec (22.0-30.0); Prothrombin Time 11.4 sec (9.0-12.0)
--- NOTE | 2019-04-19 14:06 | ED ---
Abdominal Pain HPI - General Chief Complaint: Abdominal Pain Stated Complaint: Abd pain Time Seen by Provider: 04/19/19 12:58 Source: EMS, RN notes reviewed, old records reviewed Mode of arrival: EMS - History of Present Illness Initial Comments: Patient is a 84-year-old female, she presents today for nausea and abdominal pain. She states she just been feeling generally unwell. She was in the emergency department 3 days ago was diagnosed with a UTI. She's been taking antibiotics. She continues to complain of dry heaving, some epigastric and abdominal pain since that time. Surgical history includes 2 mL actions. Patient states that she just feels unwell. - Related Data Home Medications Medication Instructions Recorded Confirmed ALPRAZolam [Xanax] 0.25 mg PO TID PRN 08/05/18 02/18/19 Levothyroxine Sodium [Synthroid] 88 mcg PO DAILY 08/05/18 02/18/19 Metoprolol Tartrate [Lopressor] 25 mg PO BID 08/05/18 02/18/19 Furosemide [Lasix] 20 mg PO DAILY 09/05/18 02/18/19 Simvastatin [Zocor] 10 mg PO HS 09/05/18 02/18/19 DULoxetine HCL [Cymbalta] 30 mg PO HS 02/15/19 02/18/19 Previous Rx's Medication Instructions Recorded Pantoprazole [Protonix] 40 mg PO DAILY 30 Days #30 07/30/17 tablet. Apixaban [Eliquis] 5 mg PO BID #60 tab 11/15/17 Nitrofurantoin Monohyd/M-Cryst 100 mg PO Q12HR #14 cap 02/18/19 [Macrobid] Nitrofurantoin Monohyd/M-Cryst 100 mg PO Q12HR #6 cap 04/05/19 [Macrobid] Nitrofurantoin Monohyd/M-Cryst 100 mg PO Q12HR 5 Days #10 cap 04/17/19 [Macrobid] Allergies Allergy/AdvReac Type Severity Reaction Status Date / Time Penicillins Allergy Rash/Hives Verified 02/18/19 18:55 Sulfa (Sulfonamide Allergy Unknown Verified 02/18/19 18:55 Antibiotics) Childhood adhesive tape AdvReac PEELS SKIN Verified 02/18/19 18:55 Review of Systems ROS Statement: Those systems with pertinent positive or pertinent negative responses have been documented in the HPI. ROS Other: All systems not noted in ROS Statement are negative. 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 History of Any Multi-Drug Resistant Organisms: None Reported Past Surgical History: Section, Cholecystectomy Additional Past Surgical History / Comment(s): jaw and pelvis surgery from accident many years ago, L cataract removed. Past Anesthesia/Blood Transfusion Reactions: Postoperative Nausea & Vomiting (PONV) Additional Past Anesthesia/Blood Transfusion Reaction / Comment(s): Pt believes she received blood after her accident many yrs ago without reaction. Past Psychological History: Anxiety, Depression Smoking Status: Never smoker Past Alcohol Use History: None Reported Past Drug Use History: None Reported - Past Family History Mother Family Medical History: CVA/TIA Additional Family Medical History / Comment(s): Mother of a CVA at the age of 92 yrs. She also had a bowel disorder Father Family Medical History: Diabetes Mellitus, Myocardial Infarction ([place]) Additional Family Medical History / Comment(s): Father of a [place] at the age of 88yrs. General Exam - General Exam Comments Initial Comments: 84-year-old female. Alert and oriented 3. Patient appears frail. Vomiting and dry heaving into a bucket. General appearance: alert, in no apparent distress Head exam: Present: atraumatic, normocephalic, normal inspection Eye exam: Present: normal appearance, PERRL, EOMI. Absent: scleral icterus, conjunctival injection, periorbital swelling ENT exam: Present: normal exam, mucous membranes moist Neck exam: Present: normal inspection. Absent: tenderness, meningismus, lymphadenopathy Respiratory exam: Present: normal lung sounds bilaterally. Absent: respiratory distress, wheezes, rales, rhonchi, stridor Cardiovascular Exam: Present: regular rate, normal rhythm, normal heart sounds. Absent: systolic murmur, diastolic murmur, rubs, gallop, clicks GI/Abdominal exam: Present: soft, normal bowel sounds. Absent: distended, tenderness, guarding, rebound, rigid Extremities exam: Present: normal inspection, full ROM, normal capillary refill. Absent: tenderness, pedal edema, joint swelling, calf tenderness Back exam: Present: normal inspection Neurological exam: Present: alert, oriented X3, CN II-XII intact Psychiatric exam: Present: normal affect, normal mood Skin exam: Present: warm, dry, intact, normal color. Absent: rash Course Vital Signs 04/19/19 12:59 Temperature 97.8 F Pulse Rate 56 L Respiratory 18 Rate Blood Pressure 153/89 O2 Sat by Pulse 100 Oximetry Medical Decision Making - Medical Decision Making 10-year-old female presents with nausea and vomiting, and some dried the episodes emergency department. She'll anything weak and unwell. She is emergency department 3 days ago and diagnosed with UTI. The urine culture did grow E. coli susceptible to all antibiotic. Patient's labwork was reviewed today. Mild leukocytosis was noted. She also has elevated liver enzymes of lipase of 600. She has not had this checked recently. At this time Patient was family did come in she did have an argument with her family, states that she does not like her son-in-law and her daughter and does not like to be around them. I discussed the concern for some dehydration, mild pancreatitis, and persistent nausea and vomiting that we can proceed with CT. CT abdomen pelvis was reviewed and negative for any acute process. Discussed that and continued dehydration and further episodes of vomiting after Zofran that we can admit the Patient for fluid resuscitation. Potassium was replaced. - Lab Data Result diagrams: 04/19/19 13:20 04/19/19 13:20 Lab Results 04/19/19 04/19/19 04/19/19 Range/Units 13:20 13:20 13:20 WBC 12.0 H (3.8-10.6) k/uL RBC 3.82 (3.80-5.40) m/uL Hgb 11.6 (11.4-16.0) gm/dL Hct 34.5 (34.0-46.0) % MCV 90.4 (80.0-100.0) fL MCH 30.4 (25.0-35.0) pg MCHC 33.6 (31.0-37.0) g/dL RDW 13.3 (11.5-15.5) % Plt Count 199 (150-450) k/uL Neutrophils % 83 % Lymphocytes % 7 % Monocytes % 5 % Eosinophils % 4 % Basophils % 1 % Neutrophils # 10.0 H (1.3-7.7) k/uL Lymphocytes # 0.8 L (1.0-4.8) k/uL Monocytes # 0.5 (0-1.0) k/uL Eosinophils # 0.5 (0-0.7) k/uL Basophils # 0.1 (0-0.2) k/uL PT 11.4 (9.0-12.0) sec INR 1.1 (<1.2) APTT 28.9 (22.0-30.0) sec Sodium 141 (137-145) mmol/L Potassium 2.9 L (3.5-5.1) mmol/L Chloride 104 (98-107) mmol/L Carbon Dioxide 27 (22-30) mmol/L Anion Gap 10 mmol/L BUN 21 H (7-17) mg/dL Creatinine 0.94 (0.52-1.04) mg/dL Est GFR (CKD-EPI)AfAm 66 (>60 ml/min/1.73 sqM) Est GFR (CKD-EPI)NonAf 57 (>60 ml/min/1.73 sqM) Glucose 102 H (74-99) mg/dL Calcium 9.8 (8.4-10.2) mg/dL Total Bilirubin 0.7 (0.2-1.3) mg/dL AST 20 (14-36) U/L ALT 13 (9-52) U/L Alkaline Phosphatase 73 (38-126) U/L Total Protein 6.4 (6.3-8.2) g/dL Albumin 3.5 (3.5-5.0) g/dL Amylase 137 H (30-110) U/L Lipase 640 H (23-300) U/L Urine Color Urine Appearance (Clear) Urine pH (5.0-8.0) Ur Specific [place] (1.001-1.035) Urine Protein (Negative) Urine Glucose (UA) (Negative) Urine Ketones (Negative) Urine Blood (Negative) Urine Nitrite (Negative) Urine Bilirubin (Negative) Urine Urobilinogen (<2.0) mg/dL Ur Leukocyte Esterase (Negative) Urine RBC (0-5) /hpf Urine WBC (0-5) /hpf Ur Squamous Epith Cells (0-4) /hpf Urine Bacteria (None) /hpf Hyaline Casts (0-2) /lpf Urine Mucus (None) /hpf 04/19/19 Range/Units 14:20 WBC (3.8-10.6) k/uL RBC (3.80-5.40) m/uL Hgb (11.4-16.0) gm/dL Hct (34.0-46.0) % MCV (80.0-100.0) fL MCH (25.0-35.0) pg MCHC (31.0-37.0) g/dL RDW (11.5-15.5) % Plt Count (150-450) k/uL Neutrophils % % Lymphocytes % % Monocytes % % Eosinophils % % Basophils % % Neutrophils # (1.3-7.7) k/uL Lymphocytes # (1.0-4.8) k/uL Monocytes # (0-1.0) k/uL Eosinophils # (0-0.7) k/uL Basophils # (0-0.2) k/uL PT (9.0-12.0) sec INR (<1.2) APTT (22.0-30.0) sec Sodium (137-145) mmol/L Potassium (3.5-5.1) mmol/L Chloride (98-107) mmol/L Carbon Dioxide (22-30) mmol/L Anion Gap mmol/L BUN (7-17) mg/dL Creatinine (0.52-1.04) mg/dL Est GFR (CKD-EPI)AfAm (>60 ml/min/1.73 sqM) Est GFR (CKD-EPI)NonAf (>60 ml/min/1.73 sqM) Glucose (74-99) mg/dL Calcium (8.4-10.2) mg/dL Total Bilirubin (0.2-1.3) mg/dL AST (14-36) U/L ALT (9-52) U/L Alkaline Phosphatase (38-126) U/L Total Protein (6.3-8.2) g/dL Albumin (3.5-5.0) g/dL Amylase (30-110) U/L Lipase (23-300) U/L Urine Color Light Red Urine Appearance Cloudy H (Clear) Urine pH 5.5 (5.0-8.0) Ur Specific [place] 1.018 (1.001-1.035) Urine Protein Negative (Negative) Urine Glucose (UA) Negative (Negative) Urine Ketones 1+ H (Negative) Urine Blood Trace H (Negative) Urine Nitrite Negative (Negative) Urine Bilirubin Negative (Negative) Urine Urobilinogen <2.0 (<2.0) mg/dL Ur Leukocyte Esterase Moderate H (Negative) Urine RBC 9 H (0-5) /hpf Urine WBC 5 (0-5) /hpf Ur Squamous Epith Cells 4 (0-4) /hpf Urine Bacteria Occasional H (None) /hpf Hyaline Casts 2 (0-2) /lpf Urine Mucus Rare H (None) /hpf - Radiology Data Radiology results: report reviewed Negative CT abdomen and pelvis minor spondylitic changes and lumbar spine. Disposition Clinical Impression: Urinary tract infection, Dehydration, Elevated lipase, Weakness, Hypokalemia Disposition: ADMITTED IP TO THIS HOSP Condition: Stable Is patient prescribed a controlled substance at d/c from ED?: No Referrals: Emile Gregory MD [Primary Care Provider] - 1-2 days Time of Disposition: 15:48
[2019-04-19 14:31] LABS: Appearance,Urine Cloudy (Clear); Bacteria,Urine Occasional /hpf; Bilirubin,Urine Negative (Negative); Blood,Urine Trace (Negative); Color,Urine Light Red; Glucose,Urine (UA) Negative (Negative); Hyaline Casts,Urine 2 /lpf (0-2); Ketones,Urine 1+ (Negative); Leukocyte Esterase,Urine Moderate (Negative); Mucus,Urine Rare /hpf; Nitrite,Urine Negative (Negative); PH, Urine 5.5 (5.0-8.0); Protein,Urine Negative (Negative); RBC,Urine 9 /hpf (0-5); Specific Gravity,Urine 1.018 (1.001-1.035); Squamous Epithelial Cell,Urine 4 /hpf (0-4); Urobilinogen,Urine <2.0 mg/dL (<2.0)
--- NOTE | 2019-04-19 14:37 | CT ---
EXAMINATION TYPE: CT abdomen pelvis w con DATE OF EXAM: 04/19/2019 COMPARISON: None HISTORY: generalized pain CT DLP: 780.2 mGycm Automated exposure control for dose reduction was used. TECHNIQUE: Helical acquisition of images was performed from the lung bases through the pelvis. CONTRAST: Performed without Oral Contrast and with IV Contrast, patient injected with 100 mL of Isovue 300. FINDINGS: Lung bases are clear. There is no pleural effusion. Heart size is normal. Liver spleen pancreas appear normal. Bile ducts are not dilated. There are clip s from cholecystectomy. There is no adrenal mass. Kidneys show satisfactory contrast opacification. There is no hydronephrosi s. Ureters are not dilated. Bladder distends smoothly. There is mild thoracolumbar levoscoliosis. Uterus is anteverted. There is no free fluid in the pelvis . Appendix appears normal. There is no mesenteric edema. There is no ascites or free air. There is no sign of a bowel obstruction. IMPRESSION: NEGATIVE CT SCAN ABDOMEN AND PELVIS. MINOR SPONDYLOTIC CHANGES IN THE LUMBAR SPINE.
[2019-04-19] MEDS ORDERED: POTASSIUM CHLORIDE ER 20 MEQ TAB.ER PO STA (15:47)
[2019-04-19] MEDS ORDERED: NALOXONE 0.4 MG/ML 1 ML VIAL IV PRN (15:50)
[2019-04-19] MEDS ORDERED: ONDANSETRON 4 MG/2 ML VIAL IVP PRN (15:50)
[2019-04-19] MEDS ORDERED: MORPHINE SULFATE 4 MG/ML SYRINGE IV PRN (15:50)
[2019-04-19] MEDS ORDERED: KETOROLAC 30 MG/ML 1 ML VIAL IVP PRN (15:50)
[2019-04-19] MEDS ORDERED: POTASSIUM BICARBONATE/CIT AC 20 MEQ TABLET.EFF PO STA (15:53)
[2019-04-19] MEDS ORDERED: cefTRIAXone IN SWFI 1,000 MG/10 ML SYRINGE IVP STA (15:54)
[2019-04-19] MEDS ORDERED: SODIUM CHLORIDE 0.9% 1,000 ML IV SCH (16:00)
[2019-04-19] MEDS ORDERED: Potassium Replacement Protocol 1 EACH MISC MISCELLANE PRN (16:39)
[2019-04-19] MEDS ORDERED: NITROFURANTOIN MONOHYD/M-CRYST 100 MG CAP PO SCH (21:00)
[2019-04-19] MEDS: METOPROLOL TARTRATE 25 MG TAB PO SCH (21:23)
[2019-04-19] MEDS: APIXABAN 5 MG TAB PO SCH (21:23)
[2019-04-19] MEDS: POTASSIUM CHLORIDE ER 20 MEQ TAB.ER PO SCH ×2 (21:23→23:59)
[2019-04-19] MEDS: ATORVASTATIN 10 MG TAB PO SCH (21:24)
[2019-04-19] MEDS: DULoxetine HCL 30 MG CAPSULE.DR PO SCH (21:24)
[2019-04-20] MEDS: POTASSIUM CHLORIDE 10 MEQ in WATER FOR INJECTION 1 100ML.BAG IVPB SCH ×4 (03:14→11:20)
[2019-04-20] MEDS: LEVOTHYROXINE 88 MCG TAB PO SCH (05:24)
[2019-04-20] MEDS: APIXABAN 5 MG TAB PO SCH ×2 (07:12→21:10)
[2019-04-20] MEDS: METOPROLOL TARTRATE 25 MG TAB PO SCH ×2 (07:12→21:09)
[2019-04-20] MEDS: PANTOPRAZOLE 40 MG TABLET PO SCH (07:12)
[2019-04-20] MEDS ORDERED: PANTOPRAZOLE 40 MG/10 ML VIAL IV SCH (09:00)
[2019-04-20] MEDS ORDERED: FUROSEMIDE 20 MG TAB PO SCH (09:00)
--- NOTE | 2019-04-20 11:38 | P.HPIM ---
History of Present Illness H&P Date: 04/19/19 Chief Complaint: Abdominal pain Patient is 89-year-old female with a known history of atrial fibrillation on anticoagulant, history of CVA/TIA, hypertension, hyperlipidemia and hypothyroidism came to ER with complaints of abdominal pain and nausea. Patient's was having generalized weakness and not feeling well. Patient was seen in the emergency room about 3 days ago and is currently being treated for urinary tract infection with Macrobid. Patient has been taking her medications. Patient continues to have epigastric abdominal discomfort and dry heaving which made her come to ER. Denied any fever or chills. Denied any hematemesis or melena. Next and no chest pain or shortness breath. CT of the abdominal pelvis showed negative study. Minor spondylitic changes in the lumbar spine. WBC 12.0 and potassium 2.9 on admission Lipase 640 UA is cloudy with moderate leukocyte esterase. No pyuria. Review of Systems Constitutional: Patient denies any fever or chills . Generalized weakness.. Abdomen: Patient does have epigastric abdominal pain and nausea and vomiting. Cardiovascular: Patient denies any chest pain or short of breath no palpitations. Respiratory: patient denied any cough is from production. No shortness of breath Neurologic: Patient denied any numbness or tingling headache. Musculoskeletal: Patient denies any complaints of joint swelling or deformity. Skin: Negative Psychiatric: Negative Endocrine: No heat or cold intolerance. No recent weight gain. Genitourinary: No dysuria or hematuria. All other 14 point ROS negative except the above Past Medical History Past Medical History: Atrial Fibrillation, CVA/TIA, GERD/Reflux, Hyperlipidemia, Hypertension, Skin Disorder, Thyroid Disorder Additional Past Medical History / Comment(s): AFib with RVR, CVA without residual, hypothyroid, sinus problems at times, back pain at times, psoriasis, janudice as a child. History of Any Multi-Drug Resistant Organisms: None Reported Past Surgical History: Section, Cholecystectomy Additional Past Surgical History / Comment(s): jaw and pelvis surgery from accident many years ago, L cataract removed. Past Anesthesia/Blood Transfusion Reactions: Postoperative Nausea & Vomiting (PONV) Additional Past Anesthesia/Blood Transfusion Reaction / Comment(s): Pt believes she received blood after her accident many yrs ago without reaction. Past Psychological History: Anxiety, Depression Smoking Status: Never smoker Past Alcohol Use History: None Reported Past Drug Use History: None Reported - Past Family History Mother Family Medical History: CVA/TIA Additional Family Medical History / Comment(s): Mother of a CVA at the age of 92 yrs. She also had a bowel disorder Father Family Medical History: Diabetes Mellitus, Myocardial Infarction (ME) Additional Family Medical History / Comment(s): Father of a ME at the age of 88yrs. Medications and Allergies Home Medications Medication Instructions Recorded Confirmed Type Pantoprazole [Protonix] 40 mg PO DAILY 30 Days #30 07/30/17 04/19/19 Rx tablet. Apixaban [Eliquis] 5 mg PO BID #60 tab 11/15/17 04/19/19 Rx ALPRAZolam [Xanax] 0.25 mg PO TID PRN 08/05/18 04/19/19 History Levothyroxine Sodium [Synthroid] 88 mcg PO DAILY 08/05/18 04/19/19 History Metoprolol Tartrate [Lopressor] 25 mg PO BID 08/05/18 04/19/19 History Furosemide [Lasix] 20 mg PO DAILY 09/05/18 04/19/19 History Simvastatin [Zocor] 10 mg PO HS 09/05/18 04/19/19 History DULoxetine HCL [Cymbalta] 30 mg PO HS 02/15/19 04/19/19 History Nitrofurantoin Monohyd/M-Cryst 100 mg PO Q12HR #6 cap 04/05/19 04/19/19 Rx [Macrobid] Adalimumab [Humira Pen] 40 mg SQ Q14D 04/19/19 04/19/19 History Allergies Allergy/AdvReac Type Severity Reaction Status Date / Time Penicillins Allergy Rash/Hives Verified 04/19/19 16:08 Sulfa (Sulfonamide Allergy Unknown Verified 04/19/19 16:08 Antibiotics) Childhood adhesive tape AdvReac PEELS SKIN Verified 04/19/19 16:08 Physical Exam Vitals: Vital Signs Temp Pulse Pulse Resp BP BP Pulse Ox 04/19/19 17:29 97.9 F 65 16 154/63 99 04/19/19 16:34 97.0 F L 65 18 157/72 100 04/19/19 16:00 153/89 04/19/19 14:30 62 18 153/89 99 11/16/19 12:59 97.8 F 56 L 18 153/89 100 Intake and Output 04/19/19 04/19/19 04/19/19 06:59 14:59 22:59 Other: Weight 68.039 kg PHYSICAL EXAMINATION: Patient is lying in the bed comfortably, no acute distress, awake alert and oriented.. HEENT: Normocephalic. Neck is supple. Pupils reactive. Nostrils clear. Oral cavity is moist. Ears reveal no drainage. Neck reveals no JVD, carotid bruits, or thyromegaly. CHEST EXAMINATION: Trachea is central. Symmetrical expansion. Lung interiano clear to auscultation and percussion. CARDIAC: Normal S1, S2 with no gallops. No murmurs ABDOMEN: Soft. Bowel sounds normal. No organomegaly. No abdominal bruits. Extremities: reveal no edema. No clubbing or cyanosis Neurologically awake, alert, oriented x3 with well-coordinated movements. No focal deficits noted Skin: No rash or skin lesions. Psychiatric: Coperative. Nonsuicidal Musculoskeletal: No joint swelling or deformity. Normal range of motion. Results CBC & Chem 7: 04/19/19 13:20 04/20/19 01:15 Labs: Abnormal Lab Results - Last 24 Hours (Table) 04/19/19 04/19/19 04/19/19 Range/Units 13:20 13:20 14:20 WBC 12.0 H (3.8-10.6) k/uL Neutrophils # 10.0 H (1.3-7.7) k/uL Lymphocytes # 0.8 L (1.0-4.8) k/uL Potassium 2.9 L (3.5-5.1) mmol/L BUN 21 H (7-17) mg/dL Glucose 102 H (74-99) mg/dL Amylase 137 H (30-110) U/L Lipase 640 H (23-300) U/L Urine Appearance Cloudy H (Clear) Urine Ketones 1+ H (Negative) Urine Blood Trace H (Negative) Ur Leukocyte Esterase Moderate H (Negative) Urine RBC 9 H (0-5) /hpf Urine Bacteria Occasional H (None) /hpf Urine Mucus Rare H (None) /hpf Thrombosis Risk Factor Assmnt - DVT/VTE Prophylaxis DVT/VTE Prophylaxis: Pharmacologic Prophylaxis ordered Assessment and Plan Assessment: Epigastric abdominal pain secondary to possible GASTRITIS and acute pancreatitis Acute pancreatitis with mildly elevated lipase level. At 640 Severe hypokalemia Acute Urinary tract infection. Failed out patient therapy. Currently on Macrobid at home. Continue with ceftriaxone and follow culture reports History of CVA/TIA Paroxysmal fibrillation on anticoagulation with eliquis Hypertension Hyperlipidemia Hypothyroidism Chronic back pain Psoriasis Anxiety/depression DVT prophylaxis currently on full anticoagulation Plan: Patient will be continued on gentle IV hydration. We will change antibiotics to ceftriaxone 1 g daily. Follow-up urine culture report. Symptomatic management for nausea and vomiting. Continue the pain management and follow closely. Continue PPI. Further recommendations based on the clinical course. Continue the home medications. Prognosis is guarded. Time with Patient: Greater than 30
[2019-04-20] MEDS: 0.9% NACL WITH KCL 20 MEQ/L 1,000 ML IV SCH (15:34)
[2019-04-20] MEDS: ATORVASTATIN 10 MG TAB PO SCH (21:09)
[2019-04-20] MEDS: DULoxetine HCL 30 MG CAPSULE.DR PO SCH (21:09)
--- NOTE | 2019-04-21 00:08 | P.PN ---
Subjective Progress Note Date: 04/20/19 Principal diagnosis: Generalized weakness Acute urinary tract infection Severe hypokalemia Patient is 89-year-old female with a known history of atrial fibrillation on anticoagulant, history of CVA/TIA, hypertension, hyperlipidemia and hypothyroidism came to ER with complaints of abdominal pain and nausea. Patient's was having generalized weakness and not feeling well. Patient was seen in the emergency room about 3 days ago and is currently being treated for urinary tract infection with Macrobid. Patient has been taking her medications. Patient continues to have epigastric abdominal discomfort and dry heaving which made her come to ER. Denied any fever or chills. Denied any hematemesis or melena. Next and no chest pain or shortness breath. CT of the abdominal pelvis showed negative study. Minor spondylitic changes in the lumbar spine. WBC 12.0 and potassium 2.9 on admission Lipase 640 UA is cloudy with moderate leukocyte esterase. No pyuria. 04/20/2019 Patient denied any complaints of chest pain or shortness of breath. Patient has been afebrile. Tolerating oral diet. Clinically improving. Otherwise acid level is 3.0. Continue with IV antibiotics in the form of ceftriaxone and follow-up urine culture report tomorrow. Anticipate discharge next 24 hours. No nausea vomiting or abdominal pain or diarrhea. Current medications reviewed. Active Medications Alprazolam (Xanax) 0.25 mg PO TID PRN PRN Reason: Anxiety Apixaban (Eliquis) 5 mg PO BID [facility] Last Admin: 04/20/19 21:10 Dose: 5 mg Documented by: Atorvastatin Calcium (Lipitor) 10 mg PO [facility] Last Admin: 04/20/19 21:09 Dose: 10 mg Documented by: Duloxetine HCl (Cymbalta) 30 mg PO [facility] Last Admin: 04/20/19 21:09 Dose: 30 mg Documented by: Ceftriaxone Sodium 1 gm/ (Sodium Chloride) 50 mls @ 100 mls/hr IVPB Q24HR [facility] Last Admin: 04/20/19 08:22 Dose: 100 mls/hr Documented by: Potassium Chloride/Sodium Chloride (Ns-Kcl 20 Meq/L Iv Solution) 1,000 mls @ 75 mls/hr IV .[id number] [facility] Last Admin: 04/20/19 15:34 Dose: 75 mls/hr Documented by: Ketorolac Tromethamine (Toradol) 30 mg IVP Q6HR PRN PRN Reason: Moderate Pain Stop: 04/24/19 15:51 Levothyroxine Sodium (Synthroid) 88 mcg PO 0630 [facility] Last Admin: 04/20/19 05:24 Dose: 88 mcg Documented by: Metoprolol Tartrate (Lopressor) 25 mg PO BID [facility] Last Admin: 04/20/19 21:09 Dose: 25 mg Documented by: Miscellaneous Information (Potassium Per Protocol) 1 each MISCELLANE DAILY PRN; Protocol PRN Reason: Per Protocol Morphine Sulfate (Morphine Sulfate (Inj)) 4 mg IV Q4HR PRN PRN Reason: Severe Pain Naloxone HCl (Narcan) 0.2 mg IV Q2M PRN PRN Reason: Opioid Reversal Ondansetron HCl (Zofran) 4 mg IVP Q8HR PRN PRN Reason: Nausea And Vomiting Pantoprazole Sodium (Protonix) 40 mg PO AC-BRKFST [facility] Last Admin: 04/20/19 07:12 Dose: 40 mg Documented by: Objective - Vital Signs Vital signs: Vital Signs Temp 97.7 F 04/20/19 11:17 Pulse 62 04/20/19 14:58 Resp 15 04/20/19 14:58 BP 145/72 04/20/19 11:17 Pulse Ox 100 04/20/19 11:17 Intake & Output 04/19/19 04/20/19 04/20/19 18:59 06:59 18:59 Intake Total 107 1580 Balance 107 1580 Weight 68.039 kg Intake: Intake, IV Titration 107 900 Amount Potassium Chloride 10 meq 100 400 In Water For Injection 1 100ml.bag @ 100 mls/hr IVPB Q1HR [facility] Rx#: [id number] Sodium Chloride 0.9% 1, 7 000 ml @ 100 mls/hr IV . Q10H [facility] Rx#:[id number] Sodium Chloride 0.9% 1, 450 000 ml @ 75 mls/hr IV . [id number] [facility] Rx#:[id number] cefTRIAXone 1 gm In 50 Sodium Chloride 0.9% 50 ml @ 100 mls/hr IVPB Q24HR [facility] Rx#:[id number] Oral 680 Other: Voiding Method Diaper Diaper Incontinent # Voids 2 2 - Exam PHYSICAL EXAMINATION: Patient is lying in the bed comfortably, no acute distress, awake alert and oriented.. HEENT: Normocephalic. Neck is supple. Pupils reactive. Nostrils clear. Oral cavity is moist. Ears reveal no drainage. Neck reveals no JVD, carotid bruits, or thyromegaly. CHEST EXAMINATION: Trachea is central. Symmetrical expansion. Lung interiano clear to auscultation and percussion. CARDIAC: Normal S1, S2 with no gallops. No murmurs ABDOMEN: Soft. Bowel sounds normal. No organomegaly. No abdominal bruits. Extremities: reveal no edema. No clubbing or cyanosis Neurologically awake, alert, oriented x3 with well-coordinated movements. No focal deficits noted Skin: No rash or skin lesions. Psychiatric: Coperative. Nonsuicidal Musculoskeletal: No joint swelling or deformity. Normal range of motion. - Labs CBC & Chem 7: 04/19/19 13:20 04/20/19 01:15 Labs: Abnormal Lab Results - Last 24 Hours (Table) 04/19/19 04/20/19 Range/Units 19:07 01:15 Potassium 3.1 L 3.0 L (3.5-5.1) mmol/L Assessment and Plan Assessment: Epigastric abdominal pain secondary to possible GASTRITIS and acute pancreatitis Acute pancreatitis with mildly elevated lipase level. At 640 Severe hypokalemia Acute Urinary tract infection. Failed out patient therapy. Currently on Macrobid at home. Continue with ceftriaxone and follow culture reports History of CVA/TIA Paroxysmal fibrillation on anticoagulation with eliquis Hypertension Hyperlipidemia Hypothyroidism Chronic back pain Psoriasis Anxiety/depression DVT prophylaxis currently on full anticoagulation Plan: Patient will be continued on gentle IV hydration. We will change antibiotics to ceftriaxone 1 g daily. Follow-up urine culture report. Symptomatic management for nausea and vomiting. Continue the pain management and follow closely. Continue PPI. Further recommendations based on the clinical course. Continue the home medications. Prognosis is guarded. Time with Patient: Greater than 30
[2019-04-21] MEDS: ALPRAZolam 0.25 MG TAB PO PRN (03:31)
[2019-04-21] MEDS: 0.9% NACL WITH KCL 20 MEQ/L 1,000 ML IV SCH ×2 (06:07→18:03)
[2019-04-21] MEDS: LEVOTHYROXINE 88 MCG TAB PO SCH (06:07)
[2019-04-21 08:16] LABS: Basophils % (A) 0 %; Eosinophils # (A) 0.5 k/uL (0-0.7); Eosinophils % (A) 7 %; Lymphocytes # (A) 1.7 k/uL (1.0-4.8); Lymphocytes % (A) 21 %; MCH 31.6 pg (25.0-35.0); MCHC 35.5 g/dL (31.0-37.0); MCV 89.2 fL (80.0-100.0); Mean Platelet Volume 8.5; Monocytes # (A) 0.5 k/uL (0-1.0); Monocytes % (A) 7 %; Neutrophils # (A) 4.9 k/uL (1.3-7.7); Neutrophils % (A) 63 %; Platelet Count 129 k/uL (150-450); RBC 3.48 m/uL (3.80-5.40); RDW 13.4 % (11.5-15.5); WBC 7.7 k/uL (3.8-10.6)
[2019-04-21 10:15] LABS: African American GFR (CKD) >90 (>60 ml/min/1.73 sqM); Anion Gap 5 mmol/L; Blood Urea Nitrogen 7 mg/dL (7-17); Calcium 8.8 mg/dL (8.4-10.2); Carbon Dioxide 27 mmol/L (22-30); Chloride 108 mmol/L (98-107); Glucose 73 mg/dL (74-99); Non-African American GFR(CKD) 83 (>60 ml/min/1.73 sqM); Potassium 3.6 mmol/L (3.5-5.1); Sodium 140 mmol/L (137-145)
[2019-04-21] MEDS: APIXABAN 5 MG TAB PO SCH ×2 (11:17→21:57)
[2019-04-21] MEDS: METOPROLOL TARTRATE 25 MG TAB PO SCH ×2 (11:17→21:58)
[2019-04-21] MEDS: PANTOPRAZOLE 40 MG TABLET PO SCH (11:18)
--- NOTE | 2019-04-21 12:06 | P.PN ---
Subjective Progress Note Date: 04/21/19 Patient resting in bed without complaint. Abdomen soft nontender Objective - Vital Signs Vital signs: Vital Signs Temp 98.2 F 04/21/19 04:48 Pulse 110 H 04/21/19 04:48 Resp 18 04/21/19 04:48 BP 132/62 04/21/19 04:48 Pulse Ox 97 04/21/19 04:48 Intake & Output 04/20/19 04/21/19 04/21/19 18:59 06:59 18:59 Intake Total 1580 Balance 1580 Intake: Intake, IV Titration 900 Amount Potassium Chloride 10 meq 400 In Water For Injection 1 100ml.bag @ 100 mls/hr IVPB Q1HR [facility] Rx#: [id number] Sodium Chloride 0.9% 1, 450 000 ml @ 75 mls/hr IV . [id number] [facility] Rx#:[id number] cefTRIAXone 1 gm In 50 Sodium Chloride 0.9% 50 ml @ 100 mls/hr IVPB Q24HR [facility] Rx#:[id number] Oral 680 Other: Voiding Method Diaper Diaper Diaper Incontinent Incontinent Incontinent # Voids 2 3 - Constitutional General appearance: Present: mild distress - EENT Eyes: Present: PERRLA Ears: bilateral: normal - Neck Neck: Present: normal ROM - Respiratory Respiratory: bilateral: CTA - Cardiovascular Rhythm: regular - Gastrointestinal General gastrointestinal: Present: normal bowel sounds, soft - Neurologic Neurologic: Present: CNII-XII intact - Musculoskeletal Musculoskeletal: Present: generalized weakness - Psychiatric Psychiatric Comment(s): Patient lethargic but easily arousable - Labs CBC & Chem 7: 04/21/19 06:43 04/21/19 09:00 Labs: Abnormal Lab Results - Last 24 Hours (Table) 04/21/19 04/21/19 Range/Units 06:43 09:00 RBC 3.48 L (3.80-5.40) m/uL Hgb 11.0 L (11.4-16.0) gm/dL Hct 31.0 L (34.0-46.0) % Plt Count 129 L (150-450) k/uL Chloride 108 H (98-107) mmol/L Glucose 73 L (74-99) mg/dL - Imaging and Cardiology CT scan - abdomen: report reviewed Assessment and Plan Plan: Assessment Abdominal pain gastritis with acute pancreatitis Hypokalemia corrected Urinary tract infection on ceftriaxone History of CVA/TIA Paroxysmal atrial fibrillation Hypertension Hyperlipidemia Hypothyroidism Chronic back pain Anxiety/depression Plan Labs in the morning continue with the treatment of urinary tract infection Being evaluated for extended care
[2019-04-21] MEDS: DULoxetine HCL 30 MG CAPSULE.DR PO SCH (21:57)
[2019-04-21] MEDS: ATORVASTATIN 10 MG TAB PO SCH (21:57)
[2019-04-22] MEDS: LEVOTHYROXINE 88 MCG TAB PO SCH (06:17)
[2019-04-22] MEDS: 0.9% NACL WITH KCL 20 MEQ/L 1,000 ML IV SCH ×2 (07:56→21:02)
[2019-04-22] MEDS: METOPROLOL TARTRATE 25 MG TAB PO SCH ×2 (07:57→21:11)
[2019-04-22] MEDS: PANTOPRAZOLE 40 MG TABLET PO SCH (07:57)
[2019-04-22] MEDS: APIXABAN 5 MG TAB PO SCH ×2 (07:57→21:12)
[2019-04-22 08:11] LABS: African American GFR (CKD) >90 (>60 ml/min/1.73 sqM); Amylase 77 U/L (30-110); Anion Gap 6 mmol/L; Blood Urea Nitrogen 6 mg/dL (7-17); Calcium 9.1 mg/dL (8.4-10.2); Carbon Dioxide 22 mmol/L (22-30); Chloride 114 mmol/L (98-107); Glucose 64 mg/dL (74-99); Non-African American GFR(CKD) 84 (>60 ml/min/1.73 sqM); Sodium 142 mmol/L (137-145)
[2019-04-22 08:16] LABS: Potassium 4.6 mmol/L (3.5-5.1)
--- NOTE | 2019-04-22 11:26 | P.PN ---
Subjective Patient more responsive to verbal communication. Social working on placement [facility] Objective - Vital Signs Vital signs: Vital Signs Temp 97.9 F 04/22/19 05:00 Pulse 73 04/22/19 05:00 Resp 16 04/22/19 05:00 BP 149/74 04/22/19 05:00 Pulse Ox 98 04/22/19 05:00 Intake & Output 04/21/19 04/22/19 04/22/19 18:59 06:59 18:59 Intake Total 700 1140 Balance 700 1140 Intake: Intake, IV Titration 700 900 Amount 0.9% NaCl with KCl 20 Meq 650 900 /l 1,000 ml @ 75 mls/hr IV .[id number] [facility] Rx#: [id number] cefTRIAXone 1 gm In 50 Sodium Chloride 0.9% 50 ml @ 100 mls/hr IVPB Q24HR [facility] Rx#:[id number] Oral 240 Other: Voiding Method Diaper Diaper Diaper Incontinent Incontinent Incontinent # Voids 2 2 - Constitutional General appearance: Present: mild distress - EENT Eyes: Present: PERRLA Ears: bilateral: normal - Neck Neck: Present: normal ROM - Respiratory Respiratory: bilateral: CTA - Cardiovascular Rhythm: regular Abnormal Heart Sounds: Present: systolic murmur - Gastrointestinal General gastrointestinal: Present: normal bowel sounds, soft - Integumentary Integumentary Comment(s): Excoriated lesions lower extremities - Musculoskeletal Musculoskeletal: Present: generalized weakness - Psychiatric Psychiatric Comment(s): Patient awake and alert and answers appropriately to questions Psychiatric: Present: appropriate affect - Labs CBC & Chem 7: 04/21/19 06:43 04/22/19 06:31 Labs: Abnormal Lab Results - Last 24 Hours (Table) 04/22/19 Range/Units 06:31 Chloride 114 H (98-107) mmol/L BUN 6 L (7-17) mg/dL Glucose 64 L (74-99) mg/dL Assessment and Plan Plan: Assessment Abdominal pain with acute pancreatitis resolved Hyperkalemia corrected Acute urinary infection History of CVA/TIA Paroxysmal atrial fibrillation Hypertension hyperlipidemia Hypothyroidism Chronic back pain Anxiety/depression Plan We'll continue antibiotics social working on [facility]
[2019-04-22] MEDS: DULoxetine HCL 30 MG CAPSULE.DR PO SCH (21:12)
[2019-04-22] MEDS: ATORVASTATIN 10 MG TAB PO SCH (21:12)
[2019-04-23] MEDS: LEVOTHYROXINE 88 MCG TAB PO SCH (06:03)
[2019-04-23] MEDS: METOPROLOL TARTRATE 25 MG TAB PO SCH ×2 (08:41→20:37)
[2019-04-23] MEDS: PANTOPRAZOLE 40 MG TABLET PO SCH (08:42)
[2019-04-23] MEDS: APIXABAN 5 MG TAB PO SCH ×2 (08:42→20:37)
--- NOTE | 2019-04-23 10:42 | P.PN ---
Subjective Discussed case with case management coordinator expecting transferred to [facility] possibly tomorrow. Patient stable sitting in chair without complaint Objective - Vital Signs Vital signs: Vital Signs Temp 97.6 F 04/23/19 05:00 Pulse 69 04/23/19 05:00 Resp 16 04/23/19 05:00 BP 98/66 04/23/19 05:00 Pulse Ox 98 04/23/19 05:00 Intake & Output 04/22/19 04/23/19 04/23/19 18:59 06:59 18:59 Intake Total 600 1440 Balance 600 1440 Intake: Intake, IV Titration 600 900 Amount 0.9% NaCl with KCl 20 Meq 600 900 /l 1,000 ml @ 75 mls/hr IV .[id number] [facility] Rx#: [id number] Oral 540 Other: Voiding Method Diaper Diaper Diaper Incontinent Incontinent Incontinent # Voids 1 1 # Bowel Movements 1 - Constitutional General appearance: Present: mild distress - EENT Eyes: Present: PERRLA Ears: bilateral: normal - Neck Neck: Present: normal ROM - Respiratory Respiratory: bilateral: CTA - Cardiovascular Rhythm: regular Abnormal Heart Sounds: Present: systolic murmur - Gastrointestinal General gastrointestinal: Present: soft - Integumentary Integumentary Comment(s): Excoriated lesions to lower extremities - Neurologic Neurologic: Present: CNII-XII intact - Musculoskeletal Musculoskeletal: Present: gait normal - Psychiatric Psychiatric Comment(s): Patient tearful and wanted to go home Psychiatric: Present: A&O x's 3 - Labs CBC & Chem 7: 04/21/19 06:43 04/22/19 06:31 Assessment and Plan Plan: Assessment Abdominal pain with pancreatitis resolved Hypokalemia resolved Acute urinary tract infection failed outpatient history of CVA/TIA Paroxysmal atrial fibrillation Hypertension Hyperlipidemia Hypothyroidism Chronic back pain Anxiety depression Plan Transfer to extended care facility [facility]
[2019-04-23] MEDS: 0.9% NACL WITH KCL 20 MEQ/L 1,000 ML IV SCH (12:43)
[2019-04-23] MEDS: ALPRAZolam 0.25 MG TAB PO PRN (15:07)
[2019-04-23 19:23] VITALS: RESP 16
[2019-04-23] MEDS: ATORVASTATIN 10 MG TAB PO SCH (20:37)
[2019-04-23] MEDS: DULoxetine HCL 30 MG CAPSULE.DR PO SCH (20:37)
[2019-04-24] MEDS: 0.9% NACL WITH KCL 20 MEQ/L 1,000 ML IV SCH ×2 (03:34→08:20)
[2019-04-24] MEDS: LEVOTHYROXINE 88 MCG TAB PO SCH (08:45)
[2019-04-24] MEDS: APIXABAN 5 MG TAB PO SCH (09:19)
[2019-04-24] MEDS: PANTOPRAZOLE 40 MG TABLET PO SCH (09:19)
[2019-04-24] MEDS: METOPROLOL TARTRATE 25 MG TAB PO SCH (09:20)
[2019-04-24 12:30] VITALS: BP 165/77; PULSE 71; TEMP 97.2
--- NOTE | 2019-04-24 13:05 | P.DS ---
Providers Date of admission: 04/21/19 13:22 Expected date of discharge: 04/24/19 Attending physician: Emile Gregory Primary care physician: Emile Gregory [facility] Course: 84-year-old female was brought to the emergency room for complaints of vomiting abdominal pain and nausea weakness and not feeling well was on Macrobid for urinary tract infection. Patient was treated for a urinary tract infection with Rocephin. Also noted mild pancreatitis that has resolved. Patient is stabilized and ready for transfer to extended care facility for rehab Assessment Abdominal pain gastritis with acute pancreatitis resolved Hypokalemia resolved Urinary tract infection will continue on Cipro History of CVA/TIA Paroxysmal atrial fibrillation Hypertension Hyperlipidemia Hypothyroidism Chronic back pain Anxiety/depression Weakness Plan Transfer to [facility] for rehab Patient Condition at Discharge: Stable Plan - Discharge Summary Discharge Rx Participant: No New Discharge Prescriptions: New Ciprofloxacin HCl [Cipro] 250 mg PO Q12HR #10 tablet Continue Pantoprazole [Protonix] 40 mg PO DAILY 30 Days #30 tablet. Apixaban [Eliquis] 5 mg PO BID #60 tab Metoprolol Tartrate [Lopressor] 25 mg PO BID Levothyroxine Sodium [Synthroid] 88 mcg PO DAILY Simvastatin [Zocor] 10 mg PO HS DULoxetine HCL [Cymbalta] 30 mg PO HS ALPRAZolam [Xanax] 0.25 mg PO TID PRN #9 tab PRN Reason: Anxiety Discontinued Furosemide [Lasix] 20 mg PO DAILY Nitrofurantoin Monohyd/M-Cryst [Macrobid] 100 mg PO Q12HR #6 cap Adalimumab [Humira Pen] 40 mg SQ Q14D Discharge Medication List Pantoprazole [Protonix] 40 mg PO DAILY 30 Days #30 tablet. 07/30/17 [Rx] Apixaban [Eliquis] 5 mg PO BID #60 tab 11/15/17 [Rx] Levothyroxine Sodium [Synthroid] 88 mcg PO DAILY 08/05/18 [History] Metoprolol Tartrate [Lopressor] 25 mg PO BID 08/05/18 [History] Simvastatin [Zocor] 10 mg PO HS 09/05/18 [History] DULoxetine HCL [Cymbalta] 30 mg PO HS 02/15/19 [History] ALPRAZolam [Xanax] 0.25 mg PO TID PRN #9 tab 04/24/19 [Rx] Ciprofloxacin HCl [Cipro] 250 mg PO Q12HR #10 tablet 04/24/19 [Rx] Follow up Appointment(s)/Referral(s): Emile Gregory MD [Primary Care Provider] - 1-2 days [facility], [NON-STAFF] - 1 Week Discharge Disposition: TRANSFER TO SNF/ECF
== END 2019-04-24 15:40 | DRG 439 ==
LOC: EC 12:55 → 3NMEDONC 15:50 → OBSVTOIN 04-21 13:22
PROVIDERS: ADMIT Family Medicine; ATTEND Family Medicine
DX: K85.90 Acute pancreatitis without necrosis or infection, unspecified (principal); N39.0 Urinary tract infection, site not specified; F41.8 Other specified anxiety disorders; G89.29 Other chronic pain; I10 Essential (primary) hypertension; I48.0 Paroxysmal atrial fibrillation; K29.70 Gastritis, unspecified, without bleeding; L40.9 Psoriasis, unspecified; E87.6 Hypokalemia; E87.5 Hyperkalemia; E86.0 Dehydration; E78.5 Hyperlipidemia, unspecified; E03.9 Hypothyroidism, unspecified; Z79.01 Long term (current) use of anticoagulants; Z79.890 Hormone replacement therapy; Z79.899 Other long term (current) drug therapy; Z82.3 Family history of stroke; Z82.49 Family history of ischemic heart disease and other diseases of the circulatory system; Z83.3 Family history of diabetes mellitus; Z86.73 Personal history of transient ischemic attack (TIA), and cerebral infarction without residual deficits; Z98.42 Cataract extraction status, left eye
CPT/HCPCS: 36415; 74177; 80048; 80053; 81001; 82150; 83690; 83735; 84132; 85025; 85610; 85730; 96361; 96374; 96375; 99285

== ENCOUNTER → 2019-11-28 | Outpatient (CLI) | payer MEDICARE, OTHER ==
[2019-11-28 15:09] LABS: Appearance,Urine Cloudy (Clear); Bacteria,Urine Occasional /hpf; Bilirubin,Urine Negative (Negative); Blood,Urine Trace (Negative); Color,Urine Yellow; Glucose,Urine (UA) Negative (Negative); Hyaline Casts,Urine 3 /lpf (0-2); Ketones,Urine Negative (Negative); Leukocyte Esterase,Urine Large (Negative); Mucus,Urine Rare /hpf; Nitrite,Urine Negative (Negative); Protein,Urine Trace (Negative); RBC,Urine 3 /hpf (0-5); Specific Gravity,Urine 1.011 (1.001-1.035); Squamous Epithelial Cell,Urine 1 /hpf (0-4); Urobilinogen,Urine <2.0 mg/dL (<2.0); WBC,Urine >182 /hpf (0-5)
== END | disposition home or self-care (01) ==
LOC: LABWHC1 14:33
PROVIDERS: ATTEND Family Medicine
DX: N39.0 Urinary tract infection, site not specified (principal)
CPT/HCPCS: 81001; 87077; 87086; 87186

== ENCOUNTER → 2020-11-29 | Outpatient (CLI) | payer MEDICARE, OTHER ==
--- NOTE | 2020-11-29 20:33 | FL ---
EXAMINATION TYPE: FL barium swallow w video DATE OF EXAM: 11/29/2020 CLINICAL HISTORY: 85-year-old female R1 3.10, sensation of food sticking, trouble getting ingested ma terial down, Dysphagia. TECHNIQUE: Deglutition study is performed utilizing thin liquid barium, honey and nectar thick liqui d barium, barium thick applesauce, and barium coated cracker. Total fluoroscopy time: 1 minute 3 seconds. Total images: None. Real-time fluoroscopy support was provided to speech pathology. COMPARISON: None. FINDINGS: The oral and pharyngeal phases show satisfactory initiation and propagation with all modalities teste d. Normal mastication is seen with solid modalities tested. There is no evidence of penetration or aspiration with any modality tested. No significant pharyngeal residue was appreciated. A thick cric opharyngeal bar is demonstrated. IMPRESSION: 1. No penetration or aspiration. No significant residuals. 2. However, there is a thick cricopharyngeal bar which may be contributing to the patient's symptoms. Please refer to speech therapist notes for further details if necessary.
== END | disposition home or self-care (01) ==
LOC: RADFLMAIN 11:01
PROVIDERS: ATTEND Family Medicine
DX: R13.10 Dysphagia, unspecified (principal)
CPT/HCPCS: 74230